=== PATIENT | male | born 1935 | race Caucasian/White ===

== ENCOUNTER 2016-04-16 15:24 | Observation (INO) | payer OTHER ==
[2016-04-16] MEDS ORDERED: ASPIRIN 81 MG CHEWABLE TABLETS PO ONE (15:33)
[2016-04-16 15:34] VITALS: BMI 29.2
[2016-04-16] MEDS ORDERED: ASPIRIN 81 MG CHEWABLE TABLETS ONE (15:57)
[2016-04-16 16:07] LABS: BASOPHIL 0.6 % (0-2.0); EOSINOPHIL 0.5 % (0-4.5); MCHC 33.8 g/dl (32.0-35.9); MEAN CELL VOLUME 100.5 fl (80-96); NEUTROPHILS 77.2 % (42.8-82.8); PLATELET COUNT 112 K/MM3 (134-434); WHITE BLOOD COUNT 7.1 K/mm3 (4.0-10.0)
[2016-04-16 16:38] LABS: ALBUMIN 3.8 g/dl (3.4-5.0); ANION GAP 9 (8-16); BILIRUBIN,TOTAL 0.7 mg/dL (0.2-1.0); CALCIUM 8.6 mg/dL (8.5-10.1); CO2 27 mmol/L (21-32); CREATININE 1.2 mg/dL (0.7-1.3); GLUCOSE,RANDOM 151 mg/dL (74-106); MAGNESIUM 2.3 mg/dL (1.8-2.4); SGOT/AST 17 U/L (15-37); SGPT/ALT 28 U/L (12-78); TOT PROT 6.2 g/dl (6.4-8.2)
[2016-04-16 16:40] LABS: ALK PHOS 61 U/L (45-117); TROPONIN I < 0.02 ng/ml (0.00-0.05)
[2016-04-16 16:45] LABS: INR 1.36 (0.82-1.09)
--- NOTE | 2016-04-16 17:25 | PDOC ---
History of Present Illness <Alize Chaney - Last Filed: 04/16/16 17:37> - General History Source: Patient Exam Limitations: No Limitations - History of Present Illness Presenting Symptoms: Chest Pain Timing/Duration: reports: constant Severity/Quality: reports: moderate, pressure Location: reports: other (left sided chest pain) Activities at Onset: reports: none Prior Chest Pain/Cardiac Workup: reports: Cardiac Cath, Stress Test, Other ( cardiac stent) Nitro Today/Relief: Yes: no nitro taken today Aspirin Received prior to arrival (Core Measure): Yes: 81 mg x 1, provided at home <SilasAngelica Randolph - Last Filed: 04/17/16 02:10> - General Chief Complaint: Chest Pain Stated Complaint: CHEST PAIN (PCP SENT) Time Seen by Provider: 04/16/16 15:33 - History of Present Illness Initial Comments: 04/16/16 17:37 The patient is a 81 year old male, with a significant past medical history of chronic lymphocytic leukemia s/p chemotherapy, hypertension, diabetes, stent placement in 2007 (81 mg aspirin daily), and pneumonia x4, who presents to the emergency department sent by Dr. Carias for admission with echocardiogram for 3 days of persistent left sided chest pain. The patient reports the pain is sharp, constant, and non-pleuritic. He states the pain radiates from his left lateral chest wall to his mid sternal region. He also reports the chest pain radiates to his left subscapular region. He denies shortness of breath, headache and dizziness. He denies fever, chills, nausea, vomit, diarrhea and constipation. He denies dysuria, frequency, urgency and hematuria. Allergies: NKDA Past surgical history: tonsillectomy and lymph node biopsy Social history: former tobacco use (+50 years) PCP - Dr. Carias Forming Fixer - Dr. Nam Rac Specialist - Dr. 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, CLL) Cardiac Disorders: Yes (ANGIOGRAM AND STENTS-09/18) CVA: No COPD: No CHF: No Dementia: No Diabetes: Yes (IDDM-20+YRS) GI Disorders: Yes (DIVERTICULOSIS-20+YRS) Disorders: Yes (enlarged prostate) HTN: Yes Hypercholesterolemia: Yes Liver Disease: No Psychiatric Problems: No Suicide Attempt (Hx): No Seizures: No Thyroid Disease: No - Surgical History Abdominal Surgery: No Appendectomy: No Cardiac Surgery: Yes (STENT AND ANGIOGRAM-09/18) Cholecystectomy: No Lung Surgery: No Neurologic Surgery: No Orthopedic Surgery: No - Immunization History Td Vaccination: No TDAP Vaccination: No - Psycho/Social/Smoking Cessation Hx Anxiety: No Suicidal Ideation: No Smoking Status: Yes Smoking History: Former smoker Have you smoked in the past 12 months: No Number of Cigarettes Smoked Daily: 0 If you are a former smoker, when did you quit?: 30 YEARS + Information on smoking cessation initiated: No 'Breaking Loose' booklet given: 07/10/11 Hx Alcohol Use: No Drug/Substance Use Hx: No Substance Use Type: None Hx Substance Use Treatment: No <Angelica Rosen - Last Filed: 04/17/16 02:10> - Past Medical History Allergies/Adverse Reactions: Allergies Allergy/AdvReac Type Severity Reaction Status Date / Time No Known Drug Allergies Allergy Verified 04/16/16 15:30 Home Medications: Ambulatory Orders [place]-3 Fatty Acids/Fish Oil [Cvs Fish Oil 1,200 mg Softgel] 1 each PO DAILY 08/02 Simvastatin [Zocor] 20 mg PO HS 07/10/11 Allopurinol [Zyloprim -] 100 mg PO DAILY #0 tablet 04/19/12 Aspirin [ASA -] 81 mg PO HS #0 tab.chew 04/19/12 Cholecalciferol (Vitamin D3) [Vitamin D3 -] 2,000 unit PO DAILY #0 tab 04/19/12 Folic Acid - 1 mg PO HS #0 tablet 04/19/12 Multivitamins [Multivit ([facility] Formulary)] 3 udtab PO DAILY 08/17/14 Ferrous Gluconate [Iron] 520 mg PO DAILY 11/29/14 Glimepiride 4 mg PO BID 11/29/14 Insulin Glargine,Hum.rec.anlog [Toujeo Solostar] 25 unit SQ DAILY 11/29/14 Insulin Sliding Scale [Novolog Vial Sliding Scale -] 0 units SQ ASDIR 11/29/14 Potassium Chloride 10 meq PO PRN 11/29/14 Acetaminophen [Tylenol .Regular Strength -] 650 mg PO Q6H PRN #0 tablet Ibrutinib [Imbruvica] 280 mg PO BID 03/24/15 Furosemide [Lasix -] 40 mg PO DAILY 11/15/15 Lisinopril [Prinivil] 10 mg PO DAILY 11/15/15 Cardiac Specific PMH - Complaint Specific PMHX Pacemaker: No <Angelica Rosen - Last Filed: 04/17/16 02:10> Review of Systems - Review of Systems Able to Perform ROS?: Yes <Alize Chaney - Last Filed: 04/16/16 17:37> <Angelica Rosen - Last Filed: 04/17/16 02:10> - Review of Systems Comments:: 04/16/16 17:38 CONSTITUTIONAL: Absent: fever, chills, diaphoresis, generalized weakness, malaise, loss of appetite HEENT: Absent: rhinorrhea, nasal congestion, throat pain, throat swelling, difficulty swallowing, mouth swelling, ear pain, eye pain, visual Changes CARDIOVASCULAR: (+) Left sided chest pain, Absent: syncope, palpitations, irregular heart rate, lightheadedness, peripheral edema RESPIRATORY: Absent: cough, shortness of breath, dyspnea with exertion, orthopnea, wheezing, stridor, hemoptysis GASTROINTESTINAL: Absent: abdominal pain, abdominal distension, nausea, vomiting, diarrhea, constipation, melena, hematochezia GENITOURINARY: Absent: dysuria, frequency, urgency, hesitancy, hematuria, flank pain, genital pain MUSCULOSKELETAL: Absent: myalgia, arthralgia, joint swelling SKIN: Absent: rash, itching, pallor HEMATOLOGIC/IMMUNOLOGIC: Absent: easy bleeding, easy bruising, lymphadenopathy, frequent infections ENDOCRINE: Absent: unexplained weight gain, unexplained weight loss, heat intolerance, cold intolerance NEUROLOGIC: Absent: headache, focal weakness or paresthesias, dizziness, unsteady gait, seizure, mental status changes, bladder or bowel incontinence PSYCHIATRIC: Absent: anxiety, depression, suicidal or homicidal ideation, hallucinations. (Alize Chaney) *Physical Exam <Alize Chaney - Last Filed: 04/16/16 17:37> <Angelica Rosen - Last Filed: 04/17/16 02:10> - Vital Signs Last Vital Signs Temp Pulse Resp BP Pulse Ox 98.4 F 70 20 150/73 97 04/16/16 20:06 04/16/16 20:06 04/16/16 20:06 04/16/16 20:06 04/16/16 20:06 - Physical Exam Comments: 04/16/16 17:39 GENERAL: Well developed, well nourished. Awake and alert. No acute distress. HEENT: Normocephalic, atraumatic. PERRLA, EOMI. No conjunctival pallor. Sclera are non- icteric. Moist mucous membranes. Oropharynx is clear. NECK: Supple. Full ROM. No JVD. Carotid pulses 2+ and symmetric, without bruits. No thyromegaly. No lymphadenopathy. CARDIOVASCULAR: Regular rate and rhythm. No murmurs, rubs, or gallops. Distal pulses are 2+ and symmetric. PULMONARY: No evidence of respiratory distress. Lungs clear to auscultation bilaterally. No wheezing, rales or rhonchi. ABDOMINAL: Soft. Non-tender. Non-distended. No rebound or guarding. No organomegaly. Normoactive bowel sounds. MUSCULOSKELETAL Normal range of motion at all joints. No bony deformities or tenderness. No CVA tenderness. EXTREMITIES: No cyanosis. No clubbing. No edema. No calf tenderness. SKIN: Warm and dry. Normal capillary refill. No rashes. No jaundice. NEUROLOGICAL: Alert, awake, appropriate. Cranial nerves 2-12 intact. Normoreflexic in the upper and lower extremities. Normal speech. Toes are down-going bilaterally. Gait is normal without ataxia. PSYCHIATRIC: Cooperative. Good eye contact. Appropriate mood and affect. (Alize Chaney) Heart Score/ECG Review - Electrocardiogram EKG: Normal - Age Age: >/= 65 - Risk Factors Risk Factors Heart Score: Yes Hx Hypercholesterolemia, Yes Hx Hypertension, Yes Hx Diabetes Based on the list above the patient has:: 1-2 risk factors - Troponin Troponin: </= normal limit - ECG Intrepretation Rhythm: Regular Rhythm - P and GA Prolonged GA Interval: 1st Degree Block(>20mils) Delta Wave(s) Present: No WPW: No - ST and T Non Specific ST-T Wave changes: Yes - ECG Impressions Ischemic Changes: No Torsades jemma Pointes: No WPW: No <Angelica Rosen - Last Filed: 04/17/16 02:10> ED Treatment Course - LABORATORY CBC & Chemistry Diagram: 04/16/16 16:00 04/16/16 16:00 <Alzie Chaney - Last Filed: 04/16/16 17:37> - LABORATORY CBC & Chemistry Diagram: 04/16/16 16:00 04/16/16 16:00 <Angelica Rosen - Last Filed: 04/17/16 02:10> - ADDITIONAL ORDERS Additional order review: Laboratory Results 04/16/16 04/16/16 16:00 16:00 INR 1.36 H Sodium 145 Potassium 4.4 Chloride 109 H Carbon Dioxide 27 Anion Gap 9 BUN 25 H D Creatinine 1.2 Creat Clearance w eGFR 58.11 Random Glucose 151 H D Calcium 8.6 Magnesium 2.3 Total Bilirubin 0.7 D AST 17 ALT 28 Alkaline Phosphatase 61 Creatine Kinase 102 Troponin I < 0.02 Total Protein 6.2 L Albumin 3.8 04/16/16 16:00 RBC 3.81 L MCV 100.5 H MCHC 33.8 RDW 14.0 MPV 10.0 Neutrophils % 77.2 D Lymphocytes % 17.2 D Monocytes % 4.5 Eosinophils % 0.5 D Basophils % 0.6 - Medications Given in the ED: ED Medications Discontinued Medications Generic Name Dose Route Start Last Admin Trade Name Freq PRN Reason Stop Dose Admin Aspirin 162 mg 04/16/16 15:33 04/16/16 16:11 Asa - PO 04/16/16 15:34 162 mg ONCE ONE Administration Medical Decision Making <Alize Chaney - Last Filed: 04/16/16 17:37> <Angelica Rosen - Last Filed: 04/17/16 02:10> - Medical Decision Making 04/16/16 17:39 Dr. Marroquin was paged at 17:32 requesting a callback for doctor to doctor consult regarding admission of Dr. Gates's patient. (Alize Chaney) 04/17/16 02:07 81 yo male p/w 3 days chest pain -he was referred to ER by his sanitation engineer Dr Ramirez --first set cardiac neg cxr napd labs revoewed xtc=331 -pt takes aspirin daily -admitted to tele obs -the sanitation engineer will do ECHO in am (Angelica Rosen) *DC/Admit/Observation/Transfer <Alize Chaney - Last Filed: 04/16/16 17:37> - Discharge Dispostion Admit: Yes <Angelica Rosen - Last Filed: 04/17/16 02:10> Diagnosis at time of Disposition: CAD (coronary artery disease) Qualifiers: Coronary Disease-Associated Artery/Lesion type: unspecified vessel or lesion type [place] vs. transplanted heart: [place] heart Associated angina: with unspecified angina Qualified Code(s): I25.119 - Atherosclerotic heart disease of [place] coronary artery with unspecified angina pectoris Chest pain Qualifiers: Chest pain type: precordial chest pain Qualified Code(s): R07.2 - Precordial pain Diabetes mellitus, insulin dependent (IDDM), uncontrolled Qualifiers: Diabetes mellitus complication status: with hyperglycemia Qualified Code(s): E10.65 - Type 1 diabetes mellitus with hyperglycemia - Referrals - Attestations Scribe Attestion: 04/16/16 17:39 Documentation prepared by Alize Chaney, acting as medical professionals for Angelica Rosen MD (Alize Chaney)
[2016-04-16] MEDS ORDERED: ACETAMINOPHEN 325 MG TABLET (FP) PO PRN (20:08)
[2016-04-16] MEDS ORDERED: ATORVASTATIN CA 10 MG TABLET (FP) PO SCH (22:00)
[2016-04-16] MEDS ORDERED: FOLIC ACID 1 MG TABLET (FP) PO SCH (22:00)
[2016-04-16] MEDS ORDERED: INSULIN DETEMIR 100 UNITS/ML MDV SQ SCH (22:00)
[2016-04-16] MEDS ORDERED: ASPIRIN 81 MG CHEWABLE TABLETS PO SCH (22:00)
[2016-04-16 22:17] LABS: TROPONIN I < 0.02 ng/ml (0.00-0.05)
[2016-04-16] MEDS: INSULIN DETEMIR 100 UNITS/ML MDV SQ SCH (22:35)
[2016-04-16] MEDS: HEPARIN NA (PORCINE) 5,000 UNITS/ML 1ML VIAL SQ SCH (22:35)
[2016-04-16] MEDS: INSULIN SLIDING SCALE (NOVOLOG) 1 VIAL SQ SCH (22:36)
[2016-04-16] MEDS: valACYclovir HCL 500 MG TABLET (FP) PO SCH (23:58)
[2016-04-17] MEDS: valACYclovir HCL 500 MG TABLET (FP) PO SCH (06:17)
[2016-04-17] MEDS: GLIMEPIRIDE 4 MG TABLET (FP) PO SCH ×3 (06:25→17:54)
[2016-04-17] MEDS: INSULIN SLIDING SCALE (NOVOLOG) 1 VIAL SQ SCH ×3 (06:25→17:55)
[2016-04-17 07:38] LABS: BASOPHIL 0.7 % (0-2.0); EOSINOPHIL 3.6 % (0-4.5); MCHC 34.1 g/dl (32.0-35.9); MEAN CELL VOLUME 99.8 fl (80-96); NEUTROPHILS 60.9 % (42.8-82.8); PLATELET COUNT 89 K/MM3 (134-434); RDW 13.8 % (11.9-15.9); WHITE BLOOD COUNT 5.4 K/mm3 (4.0-10.0)
[2016-04-17 08:21] LABS: ALBUMIN 3.3 g/dl (3.4-5.0); ALK PHOS 51 U/L (45-117); ANION GAP 6 (8-16); BILIRUBIN,TOTAL 0.6 mg/dL (0.2-1.0); CALCIUM 8.4 mg/dL (8.5-10.1); CHOLESTEROL 121 mg/dL (50-200); CO2 30 mmol/L (21-32); CREATININE 1.1 mg/dL (0.7-1.3); GLUCOSE,RANDOM 66 mg/dL (74-106); LDL CHOLESTEROL (ONLY SJRH) 68 mg/dL (5-100); MAGNESIUM 2.3 mg/dL (1.8-2.4); SGOT/AST 13 U/L (15-37); SGPT/ALT 22 U/L (12-78); TOT PROT 5.4 g/dl (6.4-8.2); TROPONIN I < 0.02 ng/ml (0.00-0.05)
[2016-04-17] MEDS ORDERED: ALLOPURINOL 100 MG TABLET (FP) PO SCH (10:00)
[2016-04-17] MEDS ORDERED: MULTIVITAMINS (DAILY MVI) TABLET (FP) PO SCH (10:00)
[2016-04-17] MEDS ORDERED: CHOLECALCIFEROL (VITAMIN D3) 1,000 UNIT TABLET (FP) PO SCH (10:00)
[2016-04-17] MEDS ORDERED: FUROSEMIDE 40 MG TABLET (FP) PO SCH (10:00)
[2016-04-17] MEDS ORDERED: LISINOPRIL 10 MG TABLET (FP) PO SCH (10:00)
[2016-04-17] MEDS ORDERED: ASPIRIN COATED 81 MG TABLET.EC PO SCH (10:00)
--- NOTE | 2016-04-17 10:03 | PN ---
Progress Note (short form) - Note Progress Note: Cardiology Consult Dictated IMP: Shingles CLL ASHD 1st degree AV block REC: Rx of Zoster Tele for 24 hours- marked 1st degree AV block. Echo
[2016-04-17] MEDS: HEPARIN NA (PORCINE) 5,000 UNITS/ML 1ML VIAL SQ SCH (10:21)
[2016-04-17] MEDS: INSULIN DETEMIR 100 UNITS/ML MDV SQ SCH (10:21)
--- NOTE | 2016-04-17 10:48 | HP ---
Admitting History and Physical - Primary Care Physician PCP: Ed Gates - Admission Chief Complaint: left sided chest pain History of Present Illness: The patient is a 81 year old male, with a significant past medical history of chronic lymphocytic leukemia s/p chemotherapy, hypertension, diabetes, stent placement in 2007 (81 mg aspirin daily), and pneumonia x4, who presents to the emergency department sent by Dr. Carias for admission with echocardiogram for 3 days of persistent left sided chest pain. The patient reports the pain is sharp, constant, and non-pleuritic. He states the pain radiates from his left lateral chest wall to his mid sternal region. He also reports the chest pain radiates to his left subscapular region. He denies shortness of breath, headache and dizziness. He denies fever, chills, nausea, vomit, diarrhea and constipation. He denies dysuria, frequency, urgency and hematuria. Allergies: NKDA Past surgical history: tonsillectomy and lymph node biopsy Social history: former tobacco use (+50 years) PCP - Dr. Carias Interventional Nurse - Dr. Nam Grey Percher - Dr. 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 CE 3 sets negative patient started on valtrex History Source: Patient, Medical Record - Past Medical History Cardiovascular: Yes: CAD (s/p stenting), HTN, Hyperlipdemia Gastrointestinal: Yes: GERD Renal/: Yes: Renal Inusuff, BPH Heme/Onc: Yes: Other (cll) Endocrine: Yes: Diabetes Mellitus - Past Surgical History Past Surgical History: Yes: Stent - Smoking History Smoking history: Former smoker Have you smoked in the past 12 months: No Aproximately how many cigarettes per day: 0 If you are a former smoker, when did you quit?: 30 YEARS + - Alcohol/Substance Use Hx Alcohol Use: No - Social History Occupation: retired History of Recent Travel: No Home Medications - Allergies Allergies/Adverse Reactions: Allergies Allergy/AdvReac Type Severity Reaction Status Date / Time No Known Drug Allergies Allergy Verified 04/16/16 15:30 - Home Medications Home Medications: Ambulatory Orders [place]-3 Fatty Acids/Fish Oil [Cvs Fish Oil 1,200 mg Softgel] 1 each PO DAILY 08/02 Simvastatin [Zocor] 20 mg PO HS 07/10/11 Allopurinol [Zyloprim -] 100 mg PO DAILY #0 tablet 04/19/12 Aspirin [ASA -] 81 mg PO HS #0 tab.chew 04/19/12 Cholecalciferol (Vitamin D3) [Vitamin D3 -] 2,000 unit PO DAILY #0 tab 04/19/12 Folic Acid - 1 mg PO HS #0 tablet 04/19/12 Multivitamins [Multivit ([facility] Formul[facility])] 3 udtab PO DAILY 08/17/14 Ferrous Gluconate [Iron] 520 mg PO DAILY 11/29/14 Glimepiride 4 mg PO BID 11/29/14 Insulin Glargine,Hum.rec.anlog [Toujeo Solostar] 25 unit SQ DAILY 11/29/14 Insulin Sliding Scale [Novolog Vial Sliding Scale -] 0 units SQ ASDIR 11/29/14 Potassium Chloride 10 meq PO PRN 11/29/14 Acetaminophen [Tylenol .Regular Strength -] 650 mg PO Q6H PRN #0 tablet Ibrutinib [Imbruvica] 280 mg PO BID 03/24/15 Furosemide [Lasix -] 40 mg PO DAILY 11/15/15 Lisinopril [Prinivil] 5 mg PO DAILY 11/15/15 Review of Systems - Review of Systems Cardiovascular: reports: Chest Pain (left side of chest non pleuritic) Physical Examination Vital Signs: Vital Signs Temperature 97.7 F 04/17/16 04:15 Pulse Rate 64 04/17/16 04:15 Respiratory Rate 20 04/17/16 04:15 Blood Pressure 123/69 04/17/16 04:15 O2 Sat by Pulse Oximetry (%) 100 04/16/16 21:00 Constitutional: Yes: Calm Neck: Yes: Trachea Midline Cardiovascular: Yes: Regular Rate and Rhythm, S1, S2 Respiratory: Yes: CTA Bilaterally Gastrointestinal: Yes: Normal Bowel Sounds, Soft Edema: Yes Integumentary: Yes: Other (red vesicles in cluster under the left breast and on back as well) Labs: CBC, BMP 04/17/16 05:35 04/17/16 05:35 Imaging - Results Chest X-ray: Report Reviewed (clear lungs) Problem List - Problems (1) Zoster Assessment/Plan: airborne precautions ID conslt on valrex Code(s): B02.9 - ZOSTER WITHOUT COMPLICATIONS (2) Chest pain Assessment/Plan: to get echo today CE 3 sets negative cardio on board asa, statin Code(s): R07.9 - CHEST PAIN, UNSPECIFIED Qualifiers: Chest pain type: precordial chest pain Qualified Code(s): R07.2 - Precordial pain (3) CLL (chronic lymphocytic leukemia) Assessment/Plan: to get he chemo medicaion from home oncology eval Code(s): C91.10 - CHRONIC LYMPHOCYTIC LEUK OF B-CELL TYPE NOT ACHIEVE REMIS (4) CAD (coronary artery disease) Assessment/Plan: asa.statin prinivil Code(s): I25.10 - ATHSCL HEART DISEASE OF [place] CORONARY ARTERY W/O ANG PCTRS Qualifiers: Coronary Disease-Associated Artery/Lesion type: unspecified vessel or lesion type [place] vs. transplanted heart: [place] heart Associated angina: with unspecified angina Qualified Code(s): I25.119 - Atherosclerotic heart disease of [place] coronary artery with unspecified angina pectoris (5) Hyperlipidemia associated with type 2 diabetes mellitus Assessment/Plan: lipd profile noted statin and fish oil Code(s): E11.69 - TYPE 2 DIABETES MELLITUS WITH OTHER SPECIFIED COMPLICATION E78.5 - HYPERLIPIDEMIA, UNSPECIFIED (6) Diabetes Assessment/Plan: hga1c is 6.5 bgm contine same regimen Code(s): E11.9 - TYPE 2 DIABETES MELLITUS WITHOUT COMPLICATIONS Qualifiers: Diabetes mellitus type: type 2
--- NOTE | 2016-04-17 11:01 | EKG ---
Test Reason : Blood Pressure : / mmHG Vent. Rate : 072 BPM Atrial Rate : 072 BPM P-R Int : 000 ms QRS Dur : 090 ms QT Int : 406 ms P-R-T Axes : 048 029 045 degrees QTc Int : 444 ms SINUS RHYTHM WITH 1ST DEGREE A-V BLOCK OTHERWISE NORMAL ECG WHEN COMPARED WITH ECG OF 14-NOV-2015 23:25, NO SIGNIFICANT CHANGE WAS FOUND Confirmed by MARY GONZALES, KENNETH ([id number]) on 04/17/2016 11:01:13 AM Referred By: ISAIAS Confirmed By:KENNETH HERNANDEZ MD
--- NOTE | 2016-04-17 11:04 | EKG ---
Test Reason : Blood Pressure : / mmHG Vent. Rate : 071 BPM Atrial Rate : 071 BPM P-R Int : 352 ms QRS Dur : 094 ms QT Int : 408 ms P-R-T Axes : 060 051 057 degrees QTc Int : 443 ms SINUS RHYTHM WITH 1ST DEGREE A-V BLOCK OTHERWISE NORMAL ECG WHEN COMPARED WITH ECG OF 16-APR-2016 15:28, NO SIGNIFICANT CHANGE WAS FOUND Confirmed by MARY GONZALES, KENNETH ([id number]) on 04/17/2016 11:03:32 AM Referred By: Sindy JOHNSON Confirmed By:KENNETH HERNANDEZ MD
--- NOTE | 2016-04-17 12:18 | CONS ---
DATE OF CONSULTATION: 04/17/2016 REQUESTING PHYSICIAN: Dr. Nam REASON FOR CONSULTATION: For chest pain. 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 Nam for 3 days of severe left-sided chest discomfort. The patient describes sharp pain on the left side of the rib cage radiating towards the left shoulder for 3 days. Upon presentation to the ER, he was noted to have a vesicular rash in a dermatomal distribution and was diagnosed with shingles. He denies substernal pressure with exertion, denies shortness of breath, palpitations, PND, orthopnea, or syncope. He denies fever, chills, or recent other upper respiratory infections. PAST MEDICAL HISTORY: Is as above and includes coronary disease, diabetes, anemia, CLL, hyperlipidemia, history of pneumonia. ALLERGIES: None HOME MEDICATIONS: Include Prinivil 5 mg daily, Imbruvica 280 mg b.i.d., Zocor 20 mg at bedtime, folic acid 1 mg at bedtime, aspirin 81 mg at bedtime, Tylenol 650 mg q.6 p.r.n., omega-3 fatty acids, multivitamin, NovoLog, Lasix 40 mg daily, glimepiride 4 mg b.i.d., iron supplementation, and allopurinol 100 mg daily. FAMILY HISTORY: Noncontributory. SOCIAL HISTORY: A former smoker, he is . PHYSICAL EXAMINATION: Vital signs: Afebrile, temperature 97.7, pulse 64, blood pressure 123/69, O2 saturation 100 on room air. HEENT: Anicteric. Neck: No bruits. Heart: S1, S2, regular, no murmurs. Chest: Clear. Abdomen: Soft, nontender. There is a red vesicular rash on the left side of his rib cage in a clear dermatomal distribution. Extremities: No edema. DIAGNOSTIC DATA: EKG showed normal sinus with 1st degree AV block. Chest x-ray was unremarkable. LABORATORIES: White count 5.4, hematocrit 35, platelets 89. INR 1.36. Sodium 146, potassium 3.8, creatinine 1.1, AST 13, ALT 22. CK and troponin are negative x3 sets. IMPRESSION: 1. Chronic lymphocytic leukemia. 2. Herpes zoster. 3. History of coronary artery disease. 4. 1st degree AV block. PLAN: 1. Treatment of zoster. 2. 24 hours of telemetry. Patient has a marked 1st degree AV block . Will observe for any evidence of higher grade block. 3. Echocardiogram. 4. Will follow. Thank you for the consultation. SHALINI DE LOS SANTOS M.D. [id number]
--- NOTE | 2016-04-17 12:30 | PN ---
Progress Note (short form) - Note Progress Note: ID Consult dictated Herpes zoster L T6 dermatome L chest pain secondary to herpes zoster CLL Valtrex 1gm po tid x7d No objection to outpatient treatment
[2016-04-17] MEDS ORDERED: valACYclovir HCL 500 MG TABLET (FP) PO SCH (14:00)
--- NOTE | 2016-04-17 14:34 | DS ---
Physical Examination Vital Signs: Vital Signs Temperature 97.9 F 04/17/16 10:47 Pulse Rate 74 04/17/16 10:47 Respiratory Rate 18 04/17/16 10:47 Blood Pressure 149/73 04/17/16 10:47 O2 Sat by Pulse Oximetry (%) 97 04/17/16 10:47 Constitutional: Yes: Calm Cardiovascular: Yes: Regular Rate and Rhythm Respiratory: Yes: CTA Bilaterally Gastrointestinal: Yes: Normal Bowel Sounds, Soft Extremities: Yes: Other Integumentary: Yes: Other (vesucklar rash under left breast ad left upper back) Discharge Summary Reason For Visit: CHEST PAIN Current Active Problems CAD (coronary artery disease) (Acute) Chest pain (Acute) Diabetes (Acute) Diabetes mellitus, insulin dependent (IDDM), uncontrolled (Acute) Fever (Acute) 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 Carias for admission with echocardiogram for 3 days of persistent left sided chest pain. The patient reports the pain is sharp, constant, and non-pleuritic. He states the pain radiates from his left lateral chest wall to his mid sternal region. He also reports the chest pain radiates to his left subscapular region. He denies shortness of breath, headache and dizziness. He denies fever, chills, nausea, vomit, diarrhea and constipation. He denies dysuria, frequency, urgency and hematuria. Allergies: NKDA Past surgical history: tonsillectomy and lymph node biopsy Social history: former tobacco use (+50 years) PCP - Dr. Carias Ticket Puller - Dr. Nam [employer] Workers - Dr. 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 CE 3 sets negative patient started on valtrex noticed to have rash on left side chest under breast left t6 dermatome to get echo today if all normal then dc home plan 1000mg po tid for 7 days - Instructions Diet, Activity, Other Instructions: valtrex 1000mg po tid for 7 days lisinopril 10mg po daily Referrals: Ed Gates MD [Primary Care Provider] - - Home Medications Comprehensive Discharge Medication List: Ambulatory Orders [place]-3 Fatty Acids/Fish Oil [Cvs Fish Oil 1,200 mg Softgel] 1 each PO DAILY 08/02 Simvastatin [Zocor] 20 mg PO HS 07/10/11 Allopurinol [Zyloprim -] 100 mg PO DAILY #0 tablet 04/19/12 Aspirin [ASA -] 81 mg PO HS #0 tab.chew 04/19/12 Cholecalciferol (Vitamin D3) [Vitamin D3 -] 2,000 unit PO DAILY #0 tab 04/19/12 Folic Acid - 1 mg PO HS #0 tablet 04/19/12 Multivitamins [Multivit ([facility] Formulary)] 3 udtab PO DAILY 08/17/14 Ferrous Gluconate [Iron] 520 mg PO DAILY 11/29/14 Glimepiride 4 mg PO BID 11/29/14 Insulin Glargine,Hum.rec.anlog [[place] Solostar] 25 unit SQ DAILY 11/29/14 Acetaminophen [Tylenol .Regular Strength -] 650 mg PO Q6H PRN #0 tablet Ibrutinib [Imbruvica] 280 mg PO BID 03/24/15 Furosemide [Lasix -] 40 mg PO DAILY 11/15/15 Insulin (Levemir) [Levemir Vial] 25 units SQ AM ml 04/17/16 Lisinopril [Prinivil] 10 mg PO DAILY #30 tablet 04/17/16 Valacyclovir HCl [Valtrex -] 1,000 mg PO TID #20 tablet 04/17/16
[2016-04-17 15:08] VITALS: BP 144/77; PULSE 70; TEMP 97.6
--- NOTE | 2016-04-17 17:45 | CONS ---
DATE OF CONSULTATION: DATE OF DICTATION: 04/17/2016 INFECTIOUS DISEASE CONSULTATION HISTORY OF PRESENT ILLNESS: An 81-year-old male evaluated for herpes zoster of the left chest. Patient reports approximately 2-3 days prior to admission he developed left sided chest pain. He reported the pain radiated from his left posterior thorax to his anterior chest. He was seen as an outpatient, was referred to the hospital for further evaluation. He was subsequently noted to have developed a vesicular rash involving the T6 dermatome. He is now on Valtrex for herpes zoster. Patient has a history of CLL and has been on Imbruvica. He denies any associated fever or chills. No complaints of shortness of breath or cough. PAST MEDICAL HISTORY: Positive for CLL, coronary artery disease, hypertension, hyperlipidemia, diabetes mellitus, pneumonia, gastroesophageal reflux. PAST SURGICAL HISTORY: Status post lymph node biopsy and tonsillectomy. ALLERGIES: No known allergies. MEDICATION: Include Zocor, Zyloprim, aspirin, glimepiride. SOCIAL HISTORY: Former smoker, lives at home with his . LABORATORY DATA: White count 5.4, hematocrit 35.0, platelet count 89. BUN 23, creatinine 1.1. SYSTEMIC REVIEW: Neurologic: No loss of consciousness, seizure activity, or focal weakness. Cardiac: As her HPI. Respiratory: Negative cough or sputum production. Gastrointestinal: Negative vomiting or diarrhea. Genitourinary: Negative for urinary tract infection. PHYSICAL EXAMINATION: General: He is awake and alert. He is not acutely toxic appearing. Vital signs: Temperature 97.9, blood pressure 149/73, pulse 74 regular, respirations 20 per minute. HEENT: Sclerae anicteric. Neck: Supple. Cardiovascular: Heart sounds S1, S2. Respiratory: Lungs clear. Abdomen: Soft. Nontender. Extremities: 1+ edema. Chest: Examination of the left chest, there is a vesicular rash present along the T6 dermatome extending from the right posterior thorax below the scapula to the right chest area below the breast. IMPRESSION: 1. Herpes zoster, left T6 dermatome. 2. 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 3. Chest pain syndrome secondary to herpes zoster. Advised treatment for herpes zoster with Valtrex 1 g p.o. t.i.d. Contact precautions. Thank you for the kind referral. SHALINI MUNGUIA M.D. [id number]
--- NOTE | 2016-04-17 17:52 | PN ---
Progress Note (short form) - Note Progress Note: Patient seen and examined. Atypical pain seen in office. No rash present at that time. Admitted with shingles within the mid thoracic dermatome. Last Vital Signs Temp Pulse Resp BP Pulse Ox 97.6 F 70 16 144/77 97 04/17/16 14:04 04/17/16 14:04 04/17/16 14:04 04/17/16 14:04 04/17/16 10:47 HEENT: MARCELINO, EOM Intact Neck: Supple Cor: RSR, No murmurs, No gallops Lungs: Clear to P&A Ext:No significant edema Skin: macular, vesicular rash across the mid dorsal dermatome CBC, BMP 04/17/16 05:35 04/17/16 05:35 Current Medications Generic Name Dose Route Start Last Admin Trade Name Freq PRN Reason Stop Dose Admin Acetaminophen 650 mg 04/16/16 20:08 04/16/16 23:58 Tylenol - PO 650 mg Q6H PRN Administration FEVER OR PAIN Allopurinol 100 mg 04/17/16 10:00 04/17/16 10:03 Zyloprim - PO 100 mg DAILY YANDEL Administration Aspirin 81 mg 04/17/16 22:00 Asa - PO HS YANDEL Atorvastatin Calcium 10 mg 04/16/16 22:00 04/16/16 22:36 Lipitor - PO 10 mg HS [facility] Administration Cholecalciferol 2,000 unit 04/17/16 10:00 04/17/16 10:03 Vitamin D3 - PO 2,000 unit DAILY YANDEL Administration Folic Acid 1 mg 04/16/16 22:00 04/16/16 22:35 Folic Acid - PO 1 mg HS [facility] Administration Glimepiride 4 mg 04/17/16 07:00 04/17/16 10:04 Amaryl - PO 4 mg BIDAC YANDEL Administration Insulin Aspart 1 vial 04/16/16 22:00 04/17/16 12:45 Novolog Vial Sliding Scale - SQ Not Given [facility] Protocol Insulin Detemir 25 units 04/18/16 07:00 Levemir Vial SQ AM YANDEL Lisinopril 5 mg 04/18/16 10:00 Prinivil PO DAILY [facility] Multivitamins/Minerals/Vitamin C 1 tab 04/17/16 10:00 04/17/16 10:02 Tab-A-Vit - PO 1 tab DAILY YANDEL Administration Valacyclovir HCl 1,000 mg 04/17/16 14:00 04/17/16 14:35 Valtrex - PO 1,000 mg TID YANDEL Administration Impression: Shingles CLL Hypogammaglobulinemia Plan: Valtrex per I.D. Until clearance of shingles-- hold Ibrutinib
[2016-04-17] MEDS ORDERED: ASPIRIN 81 MG CHEWABLE TABLETS PO SCH (22:00)
[2016-04-18] MEDS ORDERED: INSULIN DETEMIR 100 UNITS/ML MDV SQ SCH (07:00)
[2016-04-18] MEDS ORDERED: LISINOPRIL 5 MG TABLET (FP) PO SCH (10:00)
== END 2016-04-17 18:25 | disposition home or self-care (01) ==
LOC: JER 15:24 → JERBED 17:36 → UNDOADMOB 17:36 → INTOOBSV 17:36 → JERBED 20:53 → J4S 20:53 → JERBED 04-17 10:46 → J4S 04-17 10:46
PROVIDERS: ADMIT Family Medicine; ATTEND Family Medicine
DX: I25.10 Atherosclerotic heart disease of native coronary artery without angina pectoris (principal); Z98.61 Coronary angioplasty status; B02.9 Zoster without complications; R07.9 Chest pain, unspecified; I12.9 Hypertensive chronic kidney disease with stage 1 through stage 4 chronic kidney disease, or unspecified chronic kidney disease; E11.22 Type 2 diabetes mellitus with diabetic chronic kidney disease; Z87.891 Personal history of nicotine dependence; Z79.4 Long term (current) use of insulin; N18.2 Chronic kidney disease, stage 2 (mild); E11.65 Type 2 diabetes mellitus with hyperglycemia; C91.10 Chronic lymphocytic leukemia of B-cell type not having achieved remission; E78.5 Hyperlipidemia, unspecified; Z92.21 Personal history of antineoplastic chemotherapy; I44.0 Atrioventricular block, first degree
CPT/HCPCS: 36415; 71020-TC; 80053; 80061; 82550; 83036; 83721; 83735; 84484; 85025; 85610; 93005; 93010; 93306-TC; 99285-25; G0378

== ENCOUNTER 2016-10-23 08:24 | Day surgery (SDC) | payer OTHER ==
[2016-10-22 13:22] VITALS: BMI 29.2
[2016-10-23] MEDS ORDERED: ceFAZolin SODIUM 1 GM VIAL IVPB ONE ×2 (10:27→10:29)
[2016-10-23] MEDS ORDERED: MIDAZOLAM HCL 2 MG/2 ML SINGLE DOSE VIAL ONE ×2 (10:28)
[2016-10-23] MEDS ORDERED: ceFAZolin SODIUM 1 GM VIAL ONE (10:31)
--- NOTE | 2016-10-23 11:12 | OP ---
Operative Note - Note: Operative Date: 10/23/16 Pre-Operative Diagnosis: left renal calculus Operation: Left Lithotripsy Post-Operative Diagnosis: Same as Pre-op Surgeon: Andrei Thomas MD. Anesthesia: General, MAC Operative Report Dictated: Yes
[2016-10-23] MEDS ORDERED: ONDANSETRON 4 MG/2 ML VIAL IVPUSH PRN (12:09)
[2016-10-23] MEDS ORDERED: LACTATED RINGERS SOLUTION 1,000 ML IV SCH (12:15)
[2016-10-23 12:28] VITALS: TEMP 97.7
[2016-10-23 14:03] VITALS: BP 131/60; PULSE 70
--- NOTE | 2016-10-23 15:30 | OP ---
DATE OF OPERATION: 10/23/2016 PREOPERATIVE DIAGNOSIS: Left renal calculus. POSTOPERATIVE DIAGNOSIS: Left renal calculus. PROCEDURE: Left extracorporeal shock wave lithotripsy. HISTORY: This is a pleasant, 81-year-old gentleman with a long history of renal calculi, who presented initially with microhematuria recently. Preoperatively, he was found to have a 17-mm left lower pole calculus. The treatment options were discussed including observation. The patient elected to undergo the above-stated procedure. Risks and benefits of treatment and alternative treatment discussed in detail. All questions were answered. BRIEF OPERATIVE NOTE: Patient was brought in the operating room, placed in supine position. The stone was visualized using ultrasonography. Approximately 2500 shocks were delivered in electromagnetic fashion. Patient tolerated the procedure well, was brought to recovery room in stable and satisfactory condition. MEGAN AGUIRRE M.D. [id number]
== END 2016-10-23 14:03 | disposition home or self-care (01) ==
LOC: JASU-SURG 08:24
PROVIDERS: ATTEND Urology
PROC: 0TF4XZZ Fragmentation in Left Kidney Pelvis, External Approach (ICD-10-PCS; principal; 2016-10-23 10:00)
DX: N20.0 Calculus of kidney (principal)
CPT/HCPCS: 94760

== ENCOUNTER 2018-07-06 19:58 | Inpatient (IN) | payer OTHER | END 2018-07-10 11:36 | disposition home health service (06) | LOC: J6S 07-07 02:25 → JER 19:58 → JERBED 22:21 ==

== ENCOUNTER 2018-10-02 07:01 | Day surgery (SDC) | payer OTHER ==
[2018-10-02] MEDS ORDERED: DIPHENHYDRAMINE 50 MG in SODIUM CHLORIDE 50 ML IVPB ONE (09:30)
[2018-10-02] MEDS ORDERED: ACETAMINOPHEN 325 MG TABLET (FP) PO ONE (09:30)
[2018-10-02] MEDS ORDERED: IMMUNE GLOBULIN 30 GM/300 ML IVPB ONE (10:00)
[2018-10-02 10:32] LABS: BASO % 0.6 % (0-2.0); HEMATOCRIT 35.8 % (35.4-49); HEMOGLOBIN 11.7 GM/dL (11.7-16.9); LYMPH % 31.3 % (8-40); MCH 33.5 pg (25.7-33.7); MCHC 32.6 g/dl (32.0-35.9); MEAN CELL VOLUME 102.8 fl (80-96); MEAN PLT VOLUME 10.4 fl (7.5-11.1); MONO % 6.9 % (3.8-10.2); NEUT % 58.2 % (42.8-82.8); PLATELET COUNT 127 K/MM3 (134-434); RBC 3.48 M/mm3 (4.00-5.60); RDW 16.2 % (11.9-15.9); WHITE BLOOD COUNT 7.6 K/mm3 (4.0-10.0)
[2018-10-02 11:03] LABS: ALBUMIN 3.5 g/dl (3.4-5.0); BILIRUBIN,DIRECT 0.2 mg/dL (0.0-0.2); BILIRUBIN,TOTAL 0.4 mg/dL (0.2-1); CALCIUM 8.6 mg/dL (8.5-10.1); CREATININE 1.5 mg/dL (0.55-1.3); MAGNESIUM 2.7 mg/dL (1.8-2.4); POTASSIUM 4.3 mmol/L (3.5-5.1)
[2018-10-02] MEDS ORDERED: PRO IVPB ONE (11:45)
[2018-10-02] MEDS ORDERED: IMMUN GLOB IVPB ONE (11:45)
[2018-10-02] MEDS ORDERED: IGA IVPB ONE (11:45)
[2018-10-02 11:51] LABS: BLOOD UREA NITROGEN 43.4 mg/dL (7-18)
[2018-10-02] MEDS ORDERED: SODIUM CHLORIDE 250 ML IV ONE (13:00)
[2018-10-02 15:54] VITALS: TEMP 98
[2018-10-02 15:55] VITALS: BP 130/62; PULSE 57
== END 2018-10-02 15:30 | disposition home or self-care (01) ==
LOC: JONCCHEMO 07:01 → J7W 11:07 → JONCCHEMO 15:30
PROVIDERS: ATTEND Internal Medicine Hematology & Oncology
PROC: 3E033GC Introduction of Other Therapeutic Substance into Peripheral Vein, Percutaneous Approach (ICD-10-PCS; principal; 2018-10-02)
PROC: 3E033GC Introduction of Other Therapeutic Substance into Peripheral Vein, Percutaneous Approach (ICD-10-PCS; 2018-10-02)
DX: D80.1 Nonfamilial hypogammaglobulinemia (principal); C91.10 Chronic lymphocytic leukemia of B-cell type not having achieved remission; E11.9 Type 2 diabetes mellitus without complications; K57.30 Diverticulosis of large intestine without perforation or abscess without bleeding; I10 Essential (primary) hypertension
CPT/HCPCS: 36415; 80048; 80076; 83735; 85025; 96365; 96366; 96367; 96375; 96415; 96417; J1459

== ENCOUNTER 2018-10-30 05:27 | Day surgery (SDC) | payer OTHER ==
[2018-10-30] MEDS ORDERED: DIPHENHYDRAMINE 50 MG in SODIUM CHLORIDE 50 ML IVPB ONE (10:00)
[2018-10-30] MEDS ORDERED: ACETAMINOPHEN 325 MG TABLET (FP) PO PRN (10:00)
[2018-10-30] MEDS ORDERED: SODIUM CHLORIDE 250 ML IV ONE (10:00)
[2018-10-30] MEDS ORDERED: PRO IVPB ONE (10:30)
[2018-10-30] MEDS ORDERED: IMMUN GLOB IVPB ONE (10:30)
[2018-10-30] MEDS ORDERED: IGA IVPB ONE (10:30)
[2018-10-30 10:38] LABS: BASO % 0.6 % (0-2.0); EOS % 2.6 % (0-4.5); HEMATOCRIT 36.1 % (35.4-49); HEMOGLOBIN 11.8 GM/dL (11.7-16.9); LYMPH % 18.9 % (8-40); MCHC 32.6 g/dl (32.0-35.9); MEAN CELL VOLUME 104.4 fl (80-96); MEAN PLT VOLUME 9.6 fl (7.5-11.1); MONO % 7.7 % (3.8-10.2); NEUT % 70.2 % (42.8-82.8); PLATELET COUNT 137 K/MM3 (134-434); RBC 3.46 M/mm3 (4.00-5.60); RDW 17.3 % (11.9-15.9); WHITE BLOOD COUNT 8.9 K/mm3 (4.0-10.0)
[2018-10-30 11:07] LABS: ALBUMIN 3.7 g/dl (3.4-5.0); BILIRUBIN,TOTAL 0.4 mg/dL (0.2-1); CALCIUM 8.7 mg/dL (8.5-10.1); CREATININE 1.4 mg/dL (0.55-1.3); MAGNESIUM 2.6 mg/dL (1.8-2.4); POTASSIUM 4.6 mmol/L (3.5-5.1); TOT PROT 6.1 g/dl (6.4-8.2); URIC ACID 7.5 mg/dL (2.6-7.2)
[2018-10-30 15:48] VITALS: BP 143/58; PULSE 61; TEMP 97.9
[2018-11-01 08:07] LABS: IGA IMMUNOGLOBULIN 55 mg/dL (61-437); IGG QN IMMUNOGLOBULIN 704 mg/dL (700-1600); IGM QN SERUM 96 mg/dL (15-143)
== END 2018-10-30 14:35 | disposition home or self-care (01) ==
LOC: JONCCHEMO 05:27 → J7W 10:49 → JONCCHEMO 14:35
PROVIDERS: ATTEND Internal Medicine Hematology & Oncology
PROC: 3E033GC Introduction of Other Therapeutic Substance into Peripheral Vein, Percutaneous Approach (ICD-10-PCS; principal; 2018-10-30)
PROC: 3E033GC Introduction of Other Therapeutic Substance into Peripheral Vein, Percutaneous Approach (ICD-10-PCS; 2018-10-30)
DX: D80.1 Nonfamilial hypogammaglobulinemia (principal); C91.10 Chronic lymphocytic leukemia of B-cell type not having achieved remission; I10 Essential (primary) hypertension; K57.30 Diverticulosis of large intestine without perforation or abscess without bleeding
CPT/HCPCS: 36415; 80053; 82784; 83615; 83735; 84550; 85025; 96365; 96367; 96375; 96415; 96417; J1459

== ENCOUNTER 2018-11-27 07:20 | Day surgery (SDC) | payer OTHER ==
[2018-11-27] MEDS ORDERED: ACETAMINOPHEN 325 MG TABLET (FP) PO ONE (09:30)
[2018-11-27] MEDS ORDERED: DIPHENHYDRAMINE 50 MG in SODIUM CHLORIDE 50 ML IVPB ONE (09:30)
[2018-11-27] MEDS ORDERED: IGA IVPB ONE (10:00)
[2018-11-27] MEDS ORDERED: PRO IVPB ONE (10:00)
[2018-11-27] MEDS ORDERED: IMMUN GLOB IVPB ONE (10:00)
[2018-11-27 12:04] LABS: BASO % 0.7 % (0-2.0); EOS % 2.1 % (0-4.5); HEMATOCRIT 38.2 % (35.4-49); HEMOGLOBIN 12.3 GM/dL (11.7-16.9); LYMPH % 28.2 % (8-40); MCH 34.3 pg (25.7-33.7); MCHC 32.3 g/dl (32.0-35.9); MEAN CELL VOLUME 106.2 fl (80-96); MEAN PLT VOLUME 10.1 fl (7.5-11.1); MONO % 8.3 % (3.8-10.2); NEUT % 60.7 % (42.8-82.8); PLATELET COUNT 139 K/MM3 (134-434); RBC 3.59 M/mm3 (4.00-5.60); RDW 17.1 % (11.9-15.9); WHITE BLOOD COUNT 8.6 K/mm3 (4.0-10.0)
[2018-11-27 12:26] LABS: ALBUMIN 3.6 g/dl (3.4-5.0); BILIRUBIN,TOTAL 0.5 mg/dL (0.2-1); BLOOD UREA NITROGEN 42.8 mg/dL (7-18); CALCIUM 8.9 mg/dL (8.5-10.1); CREATININE 1.4 mg/dL (0.55-1.3); MAGNESIUM 2.4 mg/dL (1.8-2.4); POTASSIUM 4.3 mmol/L (3.5-5.1); TOT PROT 6.3 g/dl (6.4-8.2)
[2018-11-27] MEDS ORDERED: SODIUM CHLORIDE 250 ML IV ONE (13:00)
[2018-11-27] MEDS ORDERED: ACETAMINOPHEN 325 MG TABLET (FP) ONE (13:40)
[2018-11-27 17:16] VITALS: BP 148/51; PULSE 63; TEMP 97.4
== END 2018-11-27 16:35 | disposition home or self-care (01) ==
LOC: JONCCHEMO 07:20 → J7W 13:00 → JONCCHEMO 16:35
PROVIDERS: ATTEND Internal Medicine Hematology & Oncology
PROC: 3E033GC Introduction of Other Therapeutic Substance into Peripheral Vein, Percutaneous Approach (ICD-10-PCS; principal; 2018-11-27)
PROC: 3E033GC Introduction of Other Therapeutic Substance into Peripheral Vein, Percutaneous Approach (ICD-10-PCS; 2018-11-27)
DX: D80.1 Nonfamilial hypogammaglobulinemia (principal); C91.10 Chronic lymphocytic leukemia of B-cell type not having achieved remission
CPT/HCPCS: 36415; 80053; 83735; 85025; 96365; 96366; 96367; 96375; 96415; 96417; J1459

== ENCOUNTER 2018-12-25 07:26 | Day surgery (SDC) | payer OTHER ==
[2018-12-25] MEDS ORDERED: DIPHENHYDRAMINE 50 MG in SODIUM CHLORIDE 50 ML IVPB ONE (10:00)
[2018-12-25] MEDS ORDERED: ACETAMINOPHEN 325 MG TABLET (FP) PO ONE (10:00)
[2018-12-25] MEDS ORDERED: PRO IVPB ONE (10:30)
[2018-12-25] MEDS ORDERED: IMMUN GLOB IVPB ONE (10:30)
[2018-12-25] MEDS ORDERED: IGA IVPB ONE (10:30)
[2018-12-25 10:50] LABS: BASO % 0.7 % (0-2.0); EOS % 0.7 % (0-4.5); HEMATOCRIT 38.5 % (35.4-49); HEMOGLOBIN 12.6 GM/dL (11.7-16.9); LYMPH % 17.6 % (8-40); MCH 34.5 pg (25.7-33.7); MCHC 32.8 g/dl (32.0-35.9); MEAN CELL VOLUME 105.5 fl (80-96); MEAN PLT VOLUME 9.8 fl (7.5-11.1); MONO % 6.6 % (3.8-10.2); NEUT % 74.4 % (42.8-82.8); PLATELET COUNT 149 K/MM3 (134-434); RBC 3.66 M/mm3 (4.00-5.60); RDW 16.1 % (11.9-15.9); WHITE BLOOD COUNT 7.2 K/mm3 (4.0-10.0)
[2018-12-25 11:13] LABS: ALBUMIN 3.7 g/dl (3.4-5.0); BILIRUBIN,TOTAL 0.6 mg/dL (0.2-1); BLOOD UREA NITROGEN 54.1 mg/dL (7-18); CALCIUM 8.6 mg/dL (8.5-10.1); MAGNESIUM 2.3 mg/dL (1.8-2.4); POTASSIUM 3.6 mmol/L (3.5-5.1); TOT PROT 6.1 g/dl (6.4-8.2); URIC ACID 6.7 mg/dL (2.6-7.2)
[2018-12-25 12:29] LABS: ANISOCYTOSIS 1+; MACROCYTOSIS 1+; PLATELET ESTIMATE DECREASED
[2018-12-25] MEDS ORDERED: SODIUM CHLORIDE 250 ML IV ONE (14:00)
[2018-12-25 17:13] VITALS: BP 114/48; PULSE 72; TEMP 98.3
== END 2018-12-25 16:55 | disposition home or self-care (01) ==
LOC: JONCCHEMO 07:26 → J7W 12:32 → JONCCHEMO 16:55
PROVIDERS: ATTEND Internal Medicine Hematology & Oncology
PROC: 3E033GC Introduction of Other Therapeutic Substance into Peripheral Vein, Percutaneous Approach (ICD-10-PCS; principal; 2018-12-25)
PROC: 3E0337Z Introduction of Electrolytic and Water Balance Substance into Peripheral Vein, Percutaneous Approach (ICD-10-PCS; 2018-12-25)
DX: D80.1 Nonfamilial hypogammaglobulinemia (principal); C91.10 Chronic lymphocytic leukemia of B-cell type not having achieved remission; I10 Essential (primary) hypertension; I25.10 Atherosclerotic heart disease of native coronary artery without angina pectoris; E11.9 Type 2 diabetes mellitus without complications; E78.00 Pure hypercholesterolemia, unspecified; Z85.828 Personal history of other malignant neoplasm of skin
CPT/HCPCS: 36415; 80053; 82232; 82784; 83615; 83735; 84550; 85025; 87086; 96365; 96366; 96375; J1459

== ENCOUNTER 2019-01-29 07:28 | Day surgery (SDC) | payer OTHER ==
[2019-01-29] MEDS ORDERED: ACETAMINOPHEN 325 MG TABLET (FP) PO PRN (10:02)
[2019-01-29 10:58] LABS: EOS % 3.2 % (0-4.5); HEMATOCRIT 33.7 % (35.4-49); HEMOGLOBIN 11.2 GM/dL (11.7-16.9); LYMPH % 28.3 % (8-40); MCH 35.6 pg (25.7-33.7); MCHC 33.3 g/dl (32.0-35.9); MEAN CELL VOLUME 106.9 fl (80-96); MEAN PLT VOLUME 9.5 fl (7.5-11.1); NEUT % 59.5 % (42.8-82.8); PLATELET COUNT 125 K/MM3 (134-434); RBC 3.16 M/mm3 (4.00-5.60); RDW 14.7 % (11.9-15.9); WHITE BLOOD COUNT 6.4 K/mm3 (4.0-10.0)
[2019-01-29] MEDS ORDERED: DIPHENHYDRAMINE 50 MG in SODIUM CHLORIDE 50 ML IVPB ONE (11:00)
[2019-01-29] MEDS ORDERED: IGA IVPB ONE (11:30)
[2019-01-29] MEDS ORDERED: PRO IVPB ONE (11:30)
[2019-01-29] MEDS ORDERED: IMMUN GLOB IVPB ONE (11:30)
[2019-01-29 11:31] LABS: ALBUMIN 3.4 g/dl (3.4-5.0); BILIRUBIN,TOTAL 0.4 mg/dL (0.2-1); BLOOD UREA NITROGEN 57.8 mg/dL (7-18); CALCIUM 8.3 mg/dL (8.5-10.1); CREATININE 1.7 mg/dL (0.55-1.3); MAGNESIUM 2.4 mg/dL (1.8-2.4); URIC ACID 6.5 mg/dL (2.6-7.2)
[2019-01-29 11:43] LABS: ANISOCYTOSIS 1+; MACROCYTOSIS 1+; PLATELET ESTIMATE DECREASED
[2019-01-29 16:36] VITALS: BP 121/59; PULSE 73; TEMP 97.7
[2019-01-30 08:08] LABS: IGA IMMUNOGLOBULIN 46 mg/dL (61-437); IGG QN IMMUNOGLOBULIN 668 mg/dL (700-1600); IGM QN SERUM 74 mg/dL (15-143)
[2019-01-31 20:09] LABS: BETA-2-MICROGLOBULIN 4.1 mg/L (0.6-2.4)
== END 2019-01-29 16:51 | disposition home or self-care (01) ==
LOC: JONCCHEMO 07:28 → J7W 12:40 → JONCCHEMO 16:51
PROVIDERS: ATTEND Internal Medicine Hematology & Oncology
PROC: 3E033GC Introduction of Other Therapeutic Substance into Peripheral Vein, Percutaneous Approach (ICD-10-PCS; principal; 2019-01-29)
DX: C91.10 Chronic lymphocytic leukemia of B-cell type not having achieved remission (principal); E11.9 Type 2 diabetes mellitus without complications; I10 Essential (primary) hypertension; E78.00 Pure hypercholesterolemia, unspecified
CPT/HCPCS: 36415; 80053; 82232; 82784; 83540; 83550; 83615; 83735; 84550; 85025; 96365; 96366; J1459

== ENCOUNTER 2019-02-26 07:19 | Day surgery (SDC) | payer OTHER ==
[2019-02-26 08:36] LABS: BASO % 0.6 % (0-2.0); EOS % 3.4 % (0-4.5); HEMATOCRIT 35.5 % (35.4-49); HEMOGLOBIN 11.8 GM/dL (11.7-16.9); LYMPH % 27.1 % (8-40); MCH 35.2 pg (25.7-33.7); MCHC 33.3 g/dl (32.0-35.9); MEAN CELL VOLUME 105.7 fl (80-96); MEAN PLT VOLUME 9.8 fl (7.5-11.1); MONO % 8.4 % (3.8-10.2); NEUT % 60.5 % (42.8-82.8); PLATELET COUNT 143 K/MM3 (134-434); RBC 3.36 M/mm3 (4.00-5.60); RDW 14.7 % (11.9-15.9); WHITE BLOOD COUNT 8.6 K/mm3 (4.0-10.0)
[2019-02-26 09:18] LABS: ALBUMIN 3.6 g/dl (3.4-5.0); BILIRUBIN,TOTAL 0.4 mg/dL (0.2-1); BLOOD UREA NITROGEN 50.1 mg/dL (7-18); CALCIUM 8.3 mg/dL (8.5-10.1); CREATININE 1.6 mg/dL (0.55-1.3); MAGNESIUM 2.4 mg/dL (1.8-2.4); POTASSIUM 3.7 mmol/L (3.5-5.1); TOT PROT 6.3 g/dl (6.4-8.2); URIC ACID 6.9 mg/dL (2.6-7.2)
[2019-02-26] MEDS ORDERED: ACETAMINOPHEN 325 MG TABLET (FP) PO PRN (10:00)
[2019-02-26] MEDS ORDERED: DIPHENHYDRAMINE 50 MG in SODIUM CHLORIDE 50 ML IVPB ONE (10:00)
[2019-02-26] MEDS ORDERED: SODIUM CHLORIDE 250 ML IV ONE (10:00)
[2019-02-26] MEDS ORDERED: IGA IVPB ONE ×2 (10:30)
[2019-02-26] MEDS ORDERED: PRO IVPB ONE ×2 (10:30)
[2019-02-26] MEDS ORDERED: IMMUN GLOB IVPB ONE ×2 (10:30)
[2019-02-26] MEDS ORDERED: PRO IMMUN GLOB IVPB ONE (10:30)
[2019-02-26 14:16] VITALS: TEMP 97.9
[2019-02-26 14:17] VITALS: BP 130/47; PULSE 63
== END 2019-02-26 13:10 | disposition home or self-care (01) ==
LOC: JONCCHEMO 07:19 → J7W 09:36 → JONCCHEMO 13:10
PROVIDERS: ATTEND Internal Medicine Hematology & Oncology
PROC: 3E033GC Introduction of Other Therapeutic Substance into Peripheral Vein, Percutaneous Approach (ICD-10-PCS; principal; 2019-02-26)
DX: C91.90 Lymphoid leukemia, unspecified not having achieved remission (principal); E11.9 Type 2 diabetes mellitus without complications; I10 Essential (primary) hypertension
CPT/HCPCS: 36415; 80053; 82232; 82784; 83615; 83735; 84550; 85025; 96365; 96366; 96375; J1459

== ENCOUNTER 2019-03-26 05:37 | Day surgery (SDC) | payer OTHER ==
[2019-03-26 08:35] LABS: BASO % 0.6 % (0-2.0); EOS % 5.8 % (0-4.5); HEMATOCRIT 35.9 % (35.4-49); HEMOGLOBIN 11.9 GM/dL (11.7-16.9); LYMPH % 37.5 % (8-40); MCH 34.9 pg (25.7-33.7); MCHC 33.1 g/dl (32.0-35.9); MEAN CELL VOLUME 105.4 fl (80-96); MEAN PLT VOLUME 10.3 fl (7.5-11.1); NEUT % 47.1 % (42.8-82.8); PLATELET COUNT 121 K/MM3 (134-434); RDW 14.9 % (11.9-15.9); WHITE BLOOD COUNT 6.5 K/mm3 (4.0-10.0)
[2019-03-26 09:13] LABS: ALBUMIN 3.3 g/dl (3.4-5.0); BILIRUBIN,TOTAL 0.4 mg/dL (0.2-1); BLOOD UREA NITROGEN 50.8 mg/dL (7-18); CALCIUM 8.4 mg/dL (8.5-10.1); CREATININE 1.7 mg/dL (0.55-1.3); MAGNESIUM 2.4 mg/dL (1.8-2.4); POTASSIUM 3.5 mmol/L (3.5-5.1); TOT PROT 5.9 g/dl (6.4-8.2); URIC ACID 6.6 mg/dL (2.6-7.2)
[2019-03-26] MEDS ORDERED: DIPHENHYDRAMINE 50 MG in SODIUM CHLORIDE 50 ML IVPB ONE (09:30)
[2019-03-26] MEDS ORDERED: ACETAMINOPHEN 325 MG TABLET (FP) PO ONE (09:30)
[2019-03-26] MEDS ORDERED: PRO IVPB ONE (10:00)
[2019-03-26] MEDS ORDERED: IGA IVPB ONE (10:00)
[2019-03-26] MEDS ORDERED: IMMUN GLOB IVPB ONE (10:00)
[2019-03-26] MEDS ORDERED: diphenhydrAMINE HCL 25 MG CAPSULE (FP) PO ONE (10:00)
[2019-03-26 12:50] LABS: ANISOCYTOSIS 2+; MACROCYTOSIS 0; OVALOCYTE 1+; PLATELET ESTIMATE DECREASED
[2019-03-26] MEDS ORDERED: SODIUM CHLORIDE 250 ML IV ONE (13:00)
[2019-03-26 14:24] VITALS: PULSE 59; TEMP 97.6
[2019-03-26 14:26] VITALS: BP 141/55
== END 2019-03-26 12:55 | disposition home or self-care (01) ==
LOC: JONCCHEMO 05:37 → J7W 09:31 → JONCCHEMO 12:55
PROVIDERS: ATTEND Internal Medicine Hematology & Oncology
PROC: 3E033GC Introduction of Other Therapeutic Substance into Peripheral Vein, Percutaneous Approach (ICD-10-PCS; principal; 2019-03-26)
PROC: 3E0337Z Introduction of Electrolytic and Water Balance Substance into Peripheral Vein, Percutaneous Approach (ICD-10-PCS; 2019-03-26)
DX: Z76.89 Persons encountering health services in other specified circumstances (principal); C91.90 Lymphoid leukemia, unspecified not having achieved remission; I10 Essential (primary) hypertension; I25.10 Atherosclerotic heart disease of native coronary artery without angina pectoris; E11.9 Type 2 diabetes mellitus without complications; E78.00 Pure hypercholesterolemia, unspecified
CPT/HCPCS: 36415; 80053; 82232; 82728; 82784; 83540; 83550; 83615; 83735; 84550; 85025; 96365; 96366; J1459

== ENCOUNTER 2019-08-31 07:24 | Day surgery (SDC) | payer OTHER ==
[2019-08-31] MEDS ORDERED: diphenhydrAMINE HCL 25 MG CAPSULE (FP) PO ONE (09:30)
[2019-08-31] MEDS ORDERED: ACETAMINOPHEN 325 MG TABLET (FP) PO ONE (09:30)
[2019-08-31] MEDS ORDERED: IMMUN GLOB IVPB ONE (10:00)
[2019-08-31] MEDS ORDERED: PRO IMMUN GLOB IVPB ONE (10:00)
[2019-08-31] MEDS ORDERED: IGA IVPB ONE (10:00)
[2019-08-31] MEDS ORDERED: PRO IVPB ONE (10:00)
[2019-08-31] MEDS ORDERED: SODIUM CHLORIDE 0.45% 1,000 ML IV SCH (11:00)
[2019-08-31 11:11] LABS: BASO % 0.6 % (0-2.0); EOS % 3.4 % (0-4.5); HEMATOCRIT 34.6 % (35.4-49); HEMOGLOBIN 11.6 GM/dL (11.7-16.9); LYMPH % 36.8 % (8-40); MCH 35.1 pg (25.7-33.7); MCHC 33.4 g/dl (32.0-35.9); MEAN PLT VOLUME 9.5 fl (7.5-11.1); MONO % 6.4 % (3.8-10.2); NEUT % 52.8 % (42.8-82.8); PLATELET COUNT 123 K/MM3 (134-434); RBC 3.29 M/mm3 (4.00-5.60); WHITE BLOOD COUNT 7.9 K/mm3 (4.0-10.0)
[2019-08-31 11:45] LABS: ANISOCYTOSIS 2+; MACROCYTOSIS 2+; OVALOCYTE 1+; PLATELET ESTIMATE DECREASED
[2019-08-31 12:01] LABS: ALBUMIN 3.4 g/dl (3.4-5.0); BILIRUBIN,DIRECT 0.1 mg/dL (0.0-0.2); BILIRUBIN,TOTAL 0.5 mg/dL (0.2-1); BLOOD UREA NITROGEN 44.3 mg/dL (7-18); CALCIUM 12.3 mg/dL (8.5-10.1); CREATININE 1.9 mg/dL (0.55-1.3); MAGNESIUM 1.8 mg/dL (1.8-2.4); POTASSIUM 4.4 mmol/L (3.5-5.1); TOT PROT 6.2 g/dl (6.4-8.2)
[2019-08-31] MEDS ORDERED: SODIUM CHLORIDE 250 ML IV ONE (13:00)
[2019-08-31 16:55] VITALS: BP 132/54; PULSE 59; TEMP 98.5
[2019-09-01 18:07] LABS: BETA-2-MICROGLOBULIN 7.5 mg/L (0.6-2.4)
== END 2019-08-31 17:20 | disposition home or self-care (01) ==
LOC: JONCCHEMO 07:24
PROVIDERS: ATTEND Internal Medicine Hematology & Oncology
PROC: 3E033GC Introduction of Other Therapeutic Substance into Peripheral Vein, Percutaneous Approach (ICD-10-PCS; principal; 2019-08-31)
PROC: 3E0C3GC Introduction of Other Therapeutic Substance into Eye, Percutaneous Approach (ICD-10-PCS; 2019-08-31)
DX: D80.1 Nonfamilial hypogammaglobulinemia (principal)
CPT/HCPCS: 36415; 80053; 80076; 82232; 82784; 83615; 83735; 84550; 85025; 87086; 96361; 96365; 96366; J1459

== ENCOUNTER 2019-09-04 07:22 | Day surgery (SDC) | payer OTHER ==
[2019-09-04] MEDS ORDERED: SODIUM CHLORIDE 0.45%/POT 20 MEQ/1,000 ML INFUS.BAG IV ONE (08:30)
[2019-09-04] MEDS ORDERED: POT IV ONE (08:56)
[2019-09-04] MEDS ORDERED: SODIUM CHLORIDE IV ONE (08:56)
[2019-09-04] MEDS ORDERED: DENOSUMAB 120 MG/1.7 ML VIAL SQ ONE (09:00)
[2019-09-04 16:13] VITALS: BP 118/49; PULSE 88; TEMP 98
== END 2019-09-04 14:45 | disposition home or self-care (01) ==
LOC: JONCCHEMO 07:22
PROVIDERS: ATTEND Internal Medicine Hematology & Oncology
PROC: 3E0337Z Introduction of Electrolytic and Water Balance Substance into Peripheral Vein, Percutaneous Approach (ICD-10-PCS; principal; 2019-09-04)
PROC: 3E013GC Introduction of Other Therapeutic Substance into Subcutaneous Tissue, Percutaneous Approach (ICD-10-PCS; 2019-09-04)
DX: D80.1 Nonfamilial hypogammaglobulinemia (principal)
CPT/HCPCS: 96360; 96361; 96372; J0897; J3480

== ENCOUNTER 2019-10-01 07:19 | Day surgery (SDC) | payer OTHER ==
[2019-10-01] MEDS ORDERED: ACETAMINOPHEN 325 MG TABLET (FP) PO PRN (08:11)
[2019-10-01] MEDS ORDERED: diphenhydrAMINE HCL 25 MG CAPSULE (FP) PO ONE (10:00)
[2019-10-01] MEDS ORDERED: SODIUM CHLORIDE 250 ML IV ONE (10:00)
[2019-10-01] MEDS ORDERED: IGA IVPB ONE (10:30)
[2019-10-01] MEDS ORDERED: IMMUN GLOB IVPB ONE (10:30)
[2019-10-01] MEDS ORDERED: [UNRECOGNIZED DRUG - OTHER] IVPB ONE (10:30)
[2019-10-01] MEDS ORDERED: PRO IMMUN GLOB IVPB ONE (10:30)
[2019-10-01] MEDS ORDERED: PRO IVPB ONE (10:30)
[2019-10-01 10:45] LABS: BASO % 0.7 % (0-2.0); EOS % 3.2 % (0-4.5); HEMATOCRIT 32.1 % (35.4-49); HEMOGLOBIN 10.9 GM/dL (11.7-16.9); LYMPH % 36.6 % (8-40); MCH 34.8 pg (25.7-33.7); MEAN CELL VOLUME 102.3 fl (80-96); MEAN PLT VOLUME 8.6 fl (7.5-11.1); MONO % 8.1 % (3.8-10.2); NEUT % 51.4 % (42.8-82.8); PLATELET COUNT 123 K/MM3 (134-434); RBC 3.14 M/mm3 (4.00-5.60)
[2019-10-01 11:21] LABS: ALBUMIN 3.6 g/dl (3.4-5.0); BILIRUBIN,DIRECT 0.1 mg/dL (0.0-0.2); BILIRUBIN,TOTAL 0.4 mg/dL (0.2-1); BLOOD UREA NITROGEN 40.1 mg/dL (7-18); CALCIUM 8.7 mg/dL (8.5-10.1); CREATININE 1.7 mg/dL (0.55-1.3); MAGNESIUM 2.2 mg/dL (1.8-2.4); PHOSPHOROUS 2.8 mg/dL (2.5-4.9); POTASSIUM 4.3 mmol/L (3.5-5.1); TOT PROT 6.2 g/dl (6.4-8.2); URIC ACID 5.1 mg/dL (2.6-7.2)
[2019-10-01 12:03] LABS: ANISOCYTOSIS 1+; MACROCYTOSIS 1+; PLATELET ESTIMATE DECREASED
[2019-10-01 17:14] VITALS: TEMP 97.5
[2019-10-01 17:26] VITALS: BP 108/48; PULSE 61
[2019-10-03 07:08] LABS: BETA-2-MICROGLOBULIN 8.7 mg/L (0.6-2.4)
== END 2019-10-01 15:05 | disposition home or self-care (01) ==
LOC: JONCCHEMO 07:19
PROVIDERS: ATTEND Internal Medicine Hematology & Oncology
PROC: 3E033GC Introduction of Other Therapeutic Substance into Peripheral Vein, Percutaneous Approach (ICD-10-PCS; principal; 2019-10-01)
PROC: 3E033GC Introduction of Other Therapeutic Substance into Peripheral Vein, Percutaneous Approach (ICD-10-PCS; 2019-10-01)
DX: D80.1 Nonfamilial hypogammaglobulinemia (principal)
CPT/HCPCS: 36415; 80048; 80076; 82232; 82784; 83615; 83735; 84100; 84550; 85025; 96361; 96365; 96366; J1459

== ENCOUNTER 2019-10-21 04:56 | Day surgery (SDC) | payer OTHER ==
[2019-10-20 20:06] VITALS: BMI 27.7
[2019-10-21 13:15] VITALS: BP 114/52; PULSE 70; TEMP 98.2
--- NOTE | 2019-10-29 13:59 | PATH ---
Surgical Pathology Report Patient Name: KRIS ECHAVARRIA [facility]. Rec. #: [id number] /Age/Gender: 1935 (Age: 84) / M Account: [id number] Location: RADIOLOGY INTER Taken: 10/21/2019 Received: 10/21/2019 Reported: 10/29/2019 Physicians: Miguel Angel Swift M.D. 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 SEE COMMENT. COMMENT: Sections reveal small fragments of lymphoid tissue infiltrated by many small sized lymphocytes with round to oval nuclei, condensed chromatin and scant cytoplasm. Focally, some plasmacytoid cells are also noted. Immunostains performed with adequate controls show that the atypical cells are positive for CD20, PAX-5, CD23 (focal), BCL-2, IgD, CD43 (dim) while negative for CD5, CD10, cyclin D1 and p53. There is plasmacytic differentiation with lambda restriction. The Ki-67 proliferative rate is 10-15%. CD21 highlights focally disrupted follicular dendritic meshworks. In summary, the findings are indicative of involvement by a B-cell lymphoma with a non-specific immunophenotype. There is plasmacytic differentiation. Lymphocytes morphology (small cell size with round nuclei) is compatible with CLL although the immunophenotype is unusual for CLL. Therefore, the differential diagnosis includes CD5(-) atypical small lymphocytic lymphoma/chronic lymphocytic leukemia, marginal zone lymphoma and lymphoplasmacytic lymphoma. 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 Correlation with pending MYD88 mutation study is recommended for a complete evaluation. Correlation with peripheral blood and bone marrow study is also recommended.. This case was sent to Dr. Alex Chang from [facility], [place], [place] ([id number]) the diagnosis above reflects his opinion. FLOW CYTOMETRY performed and interpreted at [facility] ([id number]) shows the following: INTERPRETATION: LYMPH NODE, RIGHT AXILLARY: - B cell lymphoma with non-specific immunophenotype. COMMENT: Findings suggest large B cell lymphoma. Correlation with morphologic evaluation of the original tissue sections is recommended. PHENOTYPE: A monoclonal lambda B-cell population (82% of total) lacking CD5 or CD10 expression is detected. T cells (10% of total) express lilly-T cell antigens with CD4/8 ratio 9.7:1. See [facility] reports for additional details. The flow cytometry findings were discussed with Dr. Nam on 10/26/2019. Electronically Signed Josue Paige M.D. Addendum Reported: 11/10/2019 Addendum Diagnosis MYD88 performed and interpreted at [facility] ([id number]) shows the following: RESULTS: MYD88 L265P Mutation: Not Detected INTERPRETATION: Negative for MYD88 L265P mutation See [facility] report for additional details. Report faxed to Dr. Nam and Dr. Farnsworth on 11/10/19. Josue Paige M.D. Gross Description Received in formalin labeled "right axillary lymph node," is a 0.9 x 0.4 x 0.1 cm aggregate of merchant brown, irregular to cylindrical portions of soft tissue. The formalin is filtered and the specimen is entirely submitted in one cassette. There is additional tissue received in RPMI solution which is sent for [facility] for flow cytometry analysis. DL/10/21/2019 saudi10/21/2019
== END 2019-10-21 13:16 | disposition home or self-care (01) ==
LOC: JRADIR 04:56
PROVIDERS: ATTEND Internal Medicine Hematology & Oncology
PROC: 07B63ZX Excision of Left Axillary Lymphatic, Percutaneous Approach, Diagnostic (ICD-10-PCS; principal; 2019-10-21)
DX: C82.84 Other types of follicular lymphoma, lymph nodes of axilla and upper limb (principal)
CPT/HCPCS: 76942-TC; 87899; 88305-TC

== ENCOUNTER 2019-10-29 06:30 | Day surgery (SDC) | payer OTHER ==
[2019-10-29] MEDS ORDERED: diphenhydrAMINE HCL 25 MG CAPSULE (FP) PO ONE (09:30)
[2019-10-29] MEDS ORDERED: ACETAMINOPHEN 325 MG TABLET (FP) PO ONE (09:30)
[2019-10-29] MEDS ORDERED: IMMUN GLOB IVPB ONE (10:00)
[2019-10-29] MEDS ORDERED: PRO IVPB ONE (10:00)
[2019-10-29] MEDS ORDERED: PRO IMMUN GLOB IVPB ONE (10:00)
[2019-10-29] MEDS ORDERED: IGA IVPB ONE (10:00)
[2019-10-29 10:56] LABS: BASO % 0.4 % (0-2.0); EOS % 2.9 % (0-4.5); HEMATOCRIT 32.6 % (35.4-49); HEMOGLOBIN 10.7 GM/dL (11.7-16.9); LYMPH % 47.8 % (8-40); MCH 34.2 pg (25.7-33.7); MCHC 32.7 g/dl (32.0-35.9); MEAN CELL VOLUME 104.6 fl (80-96); MEAN PLT VOLUME 8.8 fl (7.5-11.1); MONO % 6.9 % (3.8-10.2); PLATELET COUNT 108 K/MM3 (134-434); RBC 3.12 M/mm3 (4.00-5.60); RDW 15.4 % (11.9-15.9); WHITE BLOOD COUNT 12.5 K/mm3 (4.0-10.0)
[2019-10-29 11:25] LABS: ALBUMIN 3.7 g/dl (3.4-5.0); BILIRUBIN,DIRECT 0.1 mg/dL (0.0-0.2); BILIRUBIN,TOTAL 0.4 mg/dL (0.2-1); CREATININE 1.9 mg/dL (0.55-1.3); MAGNESIUM 2.3 mg/dL (1.8-2.4); POTASSIUM 4.5 mmol/L (3.5-5.1); TOT PROT 6.4 g/dl (6.4-8.2); URIC ACID 6.3 mg/dL (2.6-7.2)
[2019-10-29 11:57] LABS: ANISOCYTOSIS 2+; MACROCYTOSIS 2+; PLATELET ESTIMATE DECREASED
[2019-10-29] MEDS ORDERED: SODIUM CHLORIDE 250 ML IV ONE (12:30)
[2019-10-29 16:10] VITALS: TEMP 97.7
[2019-10-29 16:12] VITALS: BP 122/85; PULSE 67
== END 2019-10-29 15:00 | disposition home or self-care (01) ==
LOC: JONCCHEMO 06:30
PROVIDERS: ATTEND Internal Medicine Hematology & Oncology
PROC: 3E033GC Introduction of Other Therapeutic Substance into Peripheral Vein, Percutaneous Approach (ICD-10-PCS; principal; 2019-10-29)
DX: D80.1 Nonfamilial hypogammaglobulinemia (principal)
CPT/HCPCS: 36415; 80048; 80076; 82232; 82784; 83615; 83735; 84550; 85025; 96365; 96366; J1459

== ENCOUNTER 2019-11-24 07:19 | Day surgery (SDC) | payer OTHER ==
--- OUTSIDE RECORDS SUMMARY | 2019-11-24 07:23 | XMS ---
:1935 Author Organization [facility] Support Name Relationship Address Phone RE, RETIRED Unavailable Unavailable Unavailable RE Unavailable Unavailable Unavailable DREA ECHAVARRIA [address] [facility] [place] [address] Re-disclosure Warning The records that you are about to access may contain information from federally- assisted alcohol or drug abuse programs. If such information is present, then the following federally mandated warning applies: This information has been disclosed to you from records protected by federal confidentiality rules (42 CFR part 2). The federal rules prohibit you from making any further disclosure of this information unless further disclosure is expressly permitted by the written consent of the person to whom it pertains or as otherwise permitted by 42 CFR part 2. A general authorization for the release of medical or other information is NOT sufficient for this purpose. The Federal rules restrict any use of the information to criminally investigate or prosecute any alcohol or drug abuse patient.The records that you are about to access may contain highly sensitive health information, the redisclosure of which is protected by Article 27-F of the [facility] Public Health law. If you continue you may haveaccess to information: Regarding HIV / AIDS; Provided by facilities licensed or operated by the [facility] Office of Mental Health; or Provided by the [facility] Office for People With Developmental Disabilities. If such information is present, then the following [facility] mandated warning applies: This information has been disclosed to you from confidential records which are protected by state law. State law prohibits you from making any further disclosure of this information without the specific written consent of the person to whom it pertains, or as otherwise permitted by law. Any unauthorized further disclosure in violation of state law may result in a fine or shelter sentence or both. A general authorization for the release of medical or other information is NOT sufficient authorization for further disclosure. Insurance Providers Payer name Policy type Policy ID Covered Covered alliance party's Policy P patricia / Coverage alliance party ID relationship to [employer] ormation type [employer] LOCAL OTHER [id number] OT [id number] MEDICARE [id number] SP [id number] PLUMBERS [id number] OT [id number] [employer] LOCAL 21 [id number] [place] [id number] MEDICARE [id number] SP [id number] A LOCAL [id number] SP [id number] MEDICARE [id number] SP [id number] LOCAL [id number] OT [id number] LOCAL [id number] SP [id number] Results ID Date Data Source [id number] 10/17/2019 08:23:00 AM EDT [facility] Name Value Range Interpretation Description Data Sup porting Code Source(s) Document(s ) SARS [facility] coronavirus 2 RNA This lab was ordered by [facility] and reported by [facility]. ID Date Data Source [id number] 06/27/2019 12:00:00 AM EDT [facility] Name Value Range Interpretation Code Description Data Surekha rce(s) Supporting Document(s ) 2019-nCoV [facility] RNA XXX LAEXIS+probe- Imp This lab was ordered by [facility] and reported by [facility] Procedure
[2019-11-24 09:57] LABS: BASO % 0.5 % (0-2.0); EOS % 1.9 % (0-4.5); HEMATOCRIT 29.8 % (35.4-49); HEMOGLOBIN 10.2 GM/dL (11.7-16.9); LYMPH % 44.4 % (8-40); MCH 35.8 pg (25.7-33.7); MCHC 34.2 g/dl (32.0-35.9); MEAN CELL VOLUME 104.8 fl (80-96); MEAN PLT VOLUME 8.4 fl (7.5-11.1); NEUT % 47.2 % (42.8-82.8); PLATELET COUNT 92 K/MM3 (134-434); RBC 2.85 M/mm3 (4.00-5.60); WHITE BLOOD COUNT 10.2 K/mm3 (4.0-10.0)
[2019-11-24] MEDS ORDERED: ACETAMINOPHEN 325 MG TABLET (FP) PO ONE (10:00)
[2019-11-24] MEDS ORDERED: diphenhydrAMINE HCL 25 MG CAPSULE (FP) PO ONE (10:00)
[2019-11-24 10:26] LABS: ALBUMIN 3.2 g/dl (3.4-5.0); BILIRUBIN,DIRECT 0.1 mg/dL (0.0-0.2); BILIRUBIN,TOTAL 0.4 mg/dL (0.2-1); BLOOD UREA NITROGEN 45.3 mg/dL (7-18); CALCIUM 9.8 mg/dL (8.5-10.1); CREATININE 2.1 mg/dL (0.55-1.3); POTASSIUM 4.1 mmol/L (3.5-5.1); URIC ACID 6.8 mg/dL (2.6-7.2)
[2019-11-24] MEDS ORDERED: IMMUN GLOB IVPB ONE (10:30)
[2019-11-24] MEDS ORDERED: [UNRECOGNIZED DRUG - OTHER] IVPB ONE (10:30)
[2019-11-24] MEDS ORDERED: IGA IVPB ONE (10:30)
[2019-11-24] MEDS ORDERED: PRO IMMUN GLOB IVPB ONE (10:30)
[2019-11-24] MEDS ORDERED: PRO IVPB ONE (10:30)
[2019-11-24 13:20] LABS: ANISOCYTOSIS 1+; MACROCYTOSIS 1+; OVALOCYTE 1+
[2019-11-24 13:26] LABS: PLATELET ESTIMATE DECREASED
[2019-11-24] MEDS ORDERED: SODIUM CHLORIDE 250 ML IV ONE (14:00)
[2019-11-24 17:53] VITALS: BP 119/49; PULSE 79; TEMP 97.6
== END 2019-11-24 15:40 | disposition home or self-care (01) ==
LOC: JONCCHEMO 07:19
PROVIDERS: ATTEND Internal Medicine Hematology & Oncology
PROC: 3E033GC Introduction of Other Therapeutic Substance into Peripheral Vein, Percutaneous Approach (ICD-10-PCS; principal; 2019-11-24)
PROC: 3E033GC Introduction of Other Therapeutic Substance into Peripheral Vein, Percutaneous Approach (ICD-10-PCS; 2019-11-24)
DX: D80.1 Nonfamilial hypogammaglobulinemia (principal)
CPT/HCPCS: 36415; 80048; 80076; 82232; 83036; 83615; 83735; 84550; 85025; 96361; 96365; 96366; J1459

== ENCOUNTER 2019-12-28 09:21 | Day surgery (SDC) | payer OTHER ==
[2019-12-28] MEDS ORDERED: ACETAMINOPHEN 325 MG TABLET (FP) PO ONE (09:30)
[2019-12-28] MEDS ORDERED: diphenhydrAMINE HCL 25 MG CAPSULE (FP) PO ONE (09:30)
[2019-12-28] MEDS ORDERED: PRO IVPB ONE (10:00)
[2019-12-28] MEDS ORDERED: [UNRECOGNIZED DRUG - OTHER] IVPB ONE (10:00)
[2019-12-28] MEDS ORDERED: IMMUN GLOB IVPB ONE (10:00)
[2019-12-28] MEDS ORDERED: PRO IMMUN GLOB IVPB ONE (10:00)
[2019-12-28] MEDS ORDERED: IGA IVPB ONE (10:00)
[2019-12-28 11:29] LABS: BASO % 0.3 % (0-2.0); EOS % 1.5 % (0-4.5); HEMATOCRIT 28.7 % (35.4-49); HEMOGLOBIN 9.5 GM/dL (11.7-16.9); LYMPH % 53.4 % (8-40); MCH 35.6 pg (25.7-33.7); MCHC 33.3 g/dl (32.0-35.9); MEAN CELL VOLUME 106.8 fl (80-96); MEAN PLT VOLUME 8.9 fl (7.5-11.1); MONO % 5.4 % (3.8-10.2); NEUT % 39.4 % (42.8-82.8); PLATELET COUNT 110 K/MM3 (134-434); RBC 2.69 M/mm3 (4.00-5.60); RDW 16.4 % (11.9-15.9); WHITE BLOOD COUNT 13.2 K/mm3 (4.0-10.0)
[2019-12-28 11:50] LABS: POTASSIUM 3.8 mmol/L (3.5-5.1)
[2019-12-28 11:52] LABS: BLOOD UREA NITROGEN 38.5 mg/dL (7-18); CALCIUM 8.3 mg/dL (8.5-10.1)
[2019-12-28 11:53] LABS: MAGNESIUM 1.9 mg/dL (1.8-2.4)
[2019-12-28 11:55] LABS: CREATININE 2.1 mg/dL (0.55-1.3); URIC ACID 5.5 mg/dL (2.6-7.2)
[2019-12-28] MEDS ORDERED: SODIUM CHLORIDE 250 ML IV ONE (13:00)
[2019-12-28 14:18] LABS: ANISOCYTOSIS 1+; MACROCYTOSIS 1+; PLATELET ESTIMATE DECREASED
[2019-12-28 17:29] VITALS: TEMP 97.5
[2019-12-28 17:30] VITALS: BP 103/43; PULSE 79
== END 2019-12-28 16:15 | disposition home or self-care (01) ==
LOC: JONCCHEMO 09:21
PROVIDERS: ATTEND Internal Medicine Hematology & Oncology
PROC: 3E033GC Introduction of Other Therapeutic Substance into Peripheral Vein, Percutaneous Approach (ICD-10-PCS; principal; 2019-12-28)
DX: D80.1 Nonfamilial hypogammaglobulinemia (principal)
CPT/HCPCS: 36415; 80048; 82232; 83615; 83735; 84550; 85025; 96365; 96366; J1459

== ENCOUNTER 2020-01-10 09:00 | Inpatient (IN) | payer OTHER ==
[2020-01-10 10:15] LABS: BASO % 0.4 % (0-2.0); EOS % 0.7 % (0-4.5); HEMATOCRIT 28.3 % (35.4-49); HEMOGLOBIN 9.3 GM/dL (11.7-16.9); MCH 35.1 pg (25.7-33.7); MCHC 32.8 g/dl (32.0-35.9); MEAN CELL VOLUME 107.1 fl (80-96); MEAN PLT VOLUME 8.6 fl (7.5-11.1); MONO % 3.8 % (3.8-10.2); NEUT % 35.1 % (42.8-82.8); PLATELET COUNT 139 K/MM3 (134-434); RBC 2.64 M/mm3 (4.00-5.60); RDW 16.2 % (11.9-15.9); WHITE BLOOD COUNT 20.3 K/mm3 (4.0-10.0)
[2020-01-10 10:24] LABS: POTASSIUM 4.8 mmol/L (3.5-5.1)
[2020-01-10 10:26] LABS: CALCIUM 8.3 mg/dL (8.5-10.1); INR 1.23 (0.83-1.09)
[2020-01-10 10:28] LABS: ALBUMIN 3.3 g/dl (3.4-5.0); BLOOD UREA NITROGEN 50.1 mg/dL (7-18)
[2020-01-10 10:30] LABS: CREATININE 2.9 mg/dL (0.55-1.3); PHOSPHOROUS 3.6 mg/dL (2.5-4.9)
[2020-01-10 10:31] LABS: BILIRUBIN,TOTAL 0.5 mg/dL (0.2-1); TOT PROT 6.4 g/dl (6.4-8.2)
[2020-01-10 10:35] LABS: N-TERMINAL BNP 1001.1 pg/ml (5-450)
[2020-01-10 11:38] LABS: ANISOCYTOSIS 2+; MACROCYTOSIS 2+
[2020-01-10 12:51] LABS: EPI CELLS 22 /uL (0-25.1); HYALINE CASTS 1 /uL (0-3.1); URINE APPEARANCE CLOUDY; URINE BACTERIA 49 /uL (0-1359); URINE BILIRUBIN NEGATIVE (NEGATIVE); URINE COLOR YELLOW; URINE GLUCOSE (UA) NEGATIVE (NEGATIVE); URINE KETONE NEGATIVE (NEGATIVE); URINE LEUK ESTERASE TRACE (NEGATIVE); URINE NITRITE NEGATIVE (NEGATIVE); URINE PROTEIN TRACE (NEGATIVE); URINE RBC 11 /uL (0-23.9); URINE UROBILINOGEN 0.2 mg/dL (0.2-1.0); URINE WBC 36 /uL (0-25.8)
[2020-01-10 13:18] LABS: YEAST NO SEEN (NEGATIVE)
[2020-01-10] MEDS ORDERED: ACETAMINOPHEN 325 MG TABLET (FP) PO PRN (13:22)
[2020-01-10] MEDS ORDERED: FUROSEMIDE 40 MG/4 ML INJECTABLE VIAL ONE (16:22)
[2020-01-10] MEDS: FUROSEMIDE 40 MG/4 ML INJECTABLE VIAL IVPUSH SCH (16:23)
[2020-01-10] MEDS ORDERED: SODIUM CHLORIDE 1,000 ML IV SCH (20:00)
[2020-01-10] MEDS: traZODone HCL 50 MG TABLET (FP) PO SCH (21:57)
[2020-01-10] MEDS: ASPIRIN 81 MG CHEWABLE TABLETS PO SCH (21:57)
[2020-01-10] MEDS: FOLIC ACID 1 MG TABLET (FP) PO SCH (21:57)
[2020-01-10] MEDS: ATORVASTATIN CA 10 MG TABLET (FP) PO SCH (21:57)
[2020-01-10] MEDS: HEPARIN NA (PORCINE) 5,000 UNITS/ML 1ML VIAL SQ SCH (22:05)
[2020-01-11] MEDS: INSULIN (LEVEMIR) 100 UNITS/ML UNITS SQ SCH (06:20)
[2020-01-11] MEDS: LEVOTHYROXINE NA 25 MCG TABLET (FP) PO SCH (06:20)
[2020-01-11 06:31] LABS: BASO % 0.4 % (0-2.0); EOS % 1.2 % (0-4.5); HEMATOCRIT 25.8 % (35.4-49); HEMOGLOBIN 8.3 GM/dL (11.7-16.9); LYMPH % 57.8 % (8-40); MCH 34.4 pg (25.7-33.7); MCHC 32.3 g/dl (32.0-35.9); MEAN CELL VOLUME 106.2 fl (80-96); MEAN PLT VOLUME 8.1 fl (7.5-11.1); NEUT % 35.6 % (42.8-82.8); PLATELET COUNT 131 K/MM3 (134-434); RBC 2.42 M/mm3 (4.00-5.60); RDW 16.4 % (11.9-15.9); WHITE BLOOD COUNT 13.8 K/mm3 (4.0-10.0)
[2020-01-11 06:43] LABS: POTASSIUM 4.6 mmol/L (3.5-5.1)
[2020-01-11 06:45] LABS: CALCIUM 8.7 mg/dL (8.5-10.1)
[2020-01-11 06:46] LABS: BLOOD UREA NITROGEN 47.9 mg/dL (7-18)
[2020-01-11 06:49] LABS: CREATININE 2.7 mg/dL (0.55-1.3)
[2020-01-11 06:51] LABS: BILIRUBIN,TOTAL 0.4 mg/dL (0.2-1); TOT PROT 5.5 g/dl (6.4-8.2)
[2020-01-11] MEDS ORDERED: GLIMEPIRIDE 4 MG TABLET PO SCH (07:00)
[2020-01-11] MEDS: valACYclovir HCL 500 MG TABLET (FP) PO SCH (09:37)
[2020-01-11] MEDS: HEPARIN NA (PORCINE) 5,000 UNITS/ML 1ML VIAL SQ SCH ×2 (09:37→21:38)
[2020-01-11] MEDS: ALLOPURINOL 100 MG TABLET (FP) PO SCH (09:37)
[2020-01-11] MEDS: FUROSEMIDE 40 MG/4 ML INJECTABLE VIAL IVPUSH SCH (09:37)
[2020-01-11] MEDS ORDERED: POTASSIUM CHLORIDE TABS 20 MEQ TABLET.ER (FP) PO SCH (10:00)
[2020-01-11] MEDS ORDERED: LOSARTAN POTASSIUM 50 MG TABLET PO SCH (10:00)
[2020-01-11] MEDS ORDERED: amLODIPine BESYLATE 5 MG TABLET (FP) PO SCH (10:00)
[2020-01-11] MEDS ORDERED: FUROSEMIDE 40 MG TABLET (FP) PO SCH (10:00)
[2020-01-11 10:45] LABS: ANISOCYTOSIS 1+; MACROCYTOSIS 0; OVALOCYTE 1+; PLATELET ESTIMATE DECREASED; TOXIC GRANULATION 2+
[2020-01-11] MEDS: oxyCODONE HCL 5 MG TABLET PO PRN (16:51)
[2020-01-11] MEDS: ATORVASTATIN CA 10 MG TABLET (FP) PO SCH (21:37)
[2020-01-11] MEDS: FOLIC ACID 1 MG TABLET (FP) PO SCH (21:38)
[2020-01-11] MEDS: traZODone HCL 50 MG TABLET (FP) PO SCH (21:38)
[2020-01-11] MEDS: ASPIRIN 81 MG CHEWABLE TABLETS PO SCH (21:38)
[2020-01-12] MEDS: LEVOTHYROXINE NA 25 MCG TABLET (FP) PO SCH (06:22)
[2020-01-12] MEDS: INSULIN SLIDING SCALE (NOVOLOG) 1 VIAL SQ SCH ×4 (06:23→21:27)
[2020-01-12] MEDS: INSULIN (LEVEMIR) 100 UNITS/ML UNITS SQ SCH (06:23)
[2020-01-12 07:08] LABS: BASO % 0.6 % (0-2.0); EOS % 1.3 % (0-4.5); HEMATOCRIT 26.1 % (35.4-49); HEMOGLOBIN 8.3 GM/dL (11.7-16.9); LYMPH % 59.2 % (8-40); MCH 34.1 pg (25.7-33.7); MCHC 31.8 g/dl (32.0-35.9); MEAN CELL VOLUME 107.1 fl (80-96); NEUT % 33.9 % (42.8-82.8); PLATELET COUNT 134 K/MM3 (134-434); RBC 2.44 M/mm3 (4.00-5.60); RDW 16.7 % (11.9-15.9); WHITE BLOOD COUNT 15.4 K/mm3 (4.0-10.0)
[2020-01-12 07:27] LABS: POTASSIUM 4.4 mmol/L (3.5-5.1)
[2020-01-12 07:30] LABS: CALCIUM 8.3 mg/dL (8.5-10.1)
[2020-01-12 07:31] LABS: BLOOD UREA NITROGEN 43.9 mg/dL (7-18)
[2020-01-12 07:34] LABS: CREATININE 2.7 mg/dL (0.55-1.3)
[2020-01-12 07:35] LABS: BILIRUBIN,TOTAL 0.9 mg/dL (0.2-1); TOT PROT 5.7 g/dl (6.4-8.2)
[2020-01-12] MEDS: valACYclovir HCL 500 MG TABLET (FP) PO SCH (09:59)
[2020-01-12] MEDS: ALLOPURINOL 100 MG TABLET (FP) PO SCH (09:59)
[2020-01-12] MEDS: HEPARIN NA (PORCINE) 5,000 UNITS/ML 1ML VIAL SQ SCH ×2 (09:59→21:27)
[2020-01-12] MEDS: FUROSEMIDE 40 MG/4 ML INJECTABLE VIAL IVPUSH SCH (09:59)
[2020-01-12 10:14] LABS: ANISOCYTOSIS 1+; MACROCYTOSIS 1+; PLATELET ESTIMATE DECREASED
[2020-01-12 14:54] VITALS: BMI 26.4
[2020-01-12] MEDS: oxyCODONE HCL 5 MG TABLET PO PRN (17:32)
[2020-01-12] MEDS: ATORVASTATIN CA 10 MG TABLET (FP) PO SCH (21:32)
[2020-01-12] MEDS: FOLIC ACID 1 MG TABLET (FP) PO SCH (21:33)
[2020-01-12] MEDS: ASPIRIN 81 MG CHEWABLE TABLETS PO SCH (21:33)
[2020-01-12] MEDS: traZODone HCL 50 MG TABLET (FP) PO SCH (21:33)
[2020-01-13] MEDS: INSULIN SLIDING SCALE (NOVOLOG) 1 VIAL SQ SCH ×4 (06:09→22:24)
[2020-01-13] MEDS: LEVOTHYROXINE NA 25 MCG TABLET (FP) PO SCH (06:09)
[2020-01-13] MEDS: INSULIN (LEVEMIR) 100 UNITS/ML UNITS SQ SCH (06:09)
[2020-01-13 08:03] LABS: BASO % 0.4 % (0-2.0); EOS % 1.3 % (0-4.5); HEMATOCRIT 26.6 % (35.4-49); HEMOGLOBIN 8.8 GM/dL (11.7-16.9); LYMPH % 63.7 % (8-40); MCH 35.7 pg (25.7-33.7); MCHC 33.2 g/dl (32.0-35.9); MEAN CELL VOLUME 107.5 fl (80-96); MEAN PLT VOLUME 8.5 fl (7.5-11.1); MONO % 4.2 % (3.8-10.2); NEUT % 30.4 % (42.8-82.8); PLATELET COUNT 128 K/MM3 (134-434); RBC 2.47 M/mm3 (4.00-5.60); RDW 16.3 % (11.9-15.9); WHITE BLOOD COUNT 16.5 K/mm3 (4.0-10.0)
[2020-01-13 08:20] LABS: POTASSIUM 4.7 mmol/L (3.5-5.1)
[2020-01-13 08:23] LABS: ALBUMIN 3.2 g/dl (3.4-5.0); BLOOD UREA NITROGEN 42.2 mg/dL (7-18); CALCIUM 8.4 mg/dL (8.5-10.1)
[2020-01-13 08:27] LABS: CREATININE 2.9 mg/dL (0.55-1.3)
[2020-01-13 08:28] LABS: BILIRUBIN,TOTAL 0.4 mg/dL (0.2-1); TOT PROT 5.9 g/dl (6.4-8.2)
[2020-01-13 09:31] LABS: ANISOCYTOSIS 2+; MACROCYTOSIS 2+; PLATELET ESTIMATE DECREASED
[2020-01-13] MEDS: HEPARIN NA (PORCINE) 5,000 UNITS/ML 1ML VIAL SQ SCH ×2 (09:49→22:20)
[2020-01-13] MEDS: valACYclovir HCL 500 MG TABLET (FP) PO SCH (09:49)
[2020-01-13] MEDS: ALLOPURINOL 100 MG TABLET (FP) PO SCH (09:49)
[2020-01-13] MEDS: FUROSEMIDE 40 MG/4 ML INJECTABLE VIAL IVPUSH SCH (09:49)
[2020-01-13] MEDS ORDERED: LOSARTAN POTASSIUM 50 MG TABLET PO SCH (11:59)
[2020-01-13] MEDS: FOLIC ACID 1 MG TABLET (FP) PO SCH (22:20)
[2020-01-13] MEDS: ATORVASTATIN CA 10 MG TABLET (FP) PO SCH (22:20)
[2020-01-13] MEDS: traZODone HCL 50 MG TABLET (FP) PO SCH (22:20)
[2020-01-13] MEDS: ASPIRIN 81 MG CHEWABLE TABLETS PO SCH (22:20)
[2020-01-14] MEDS ORDERED: INSULIN (NOVOLOG) ASPART 100 UNITS/ML 10ML VIAL ONE (05:48)
[2020-01-14] MEDS ORDERED: FUROSEMIDE 40 MG TABLET (FP) PO SCH (06:00)
[2020-01-14] MEDS: INSULIN (LEVEMIR) 100 UNITS/ML UNITS SQ SCH (06:17)
[2020-01-14] MEDS: INSULIN SLIDING SCALE (NOVOLOG) 1 VIAL SQ SCH ×2 (06:19→12:16)
[2020-01-14] MEDS: LEVOTHYROXINE NA 25 MCG TABLET (FP) PO SCH (06:19)
[2020-01-14 06:28] LABS: BASO % 0.6 % (0-2.0); EOS % 1.5 % (0-4.5); HEMATOCRIT 25.6 % (35.4-49); HEMOGLOBIN 8.2 GM/dL (11.7-16.9); LYMPH % 60.7 % (8-40); MCH 34.3 pg (25.7-33.7); MEAN CELL VOLUME 107.2 fl (80-96); MONO % 4.7 % (3.8-10.2); NEUT % 32.5 % (42.8-82.8); PLATELET COUNT 127 K/MM3 (134-434); RBC 2.39 M/mm3 (4.00-5.60); RDW 16.2 % (11.9-15.9); WHITE BLOOD COUNT 15.2 K/mm3 (4.0-10.0)
[2020-01-14 06:40] LABS: POTASSIUM 4.3 mmol/L (3.5-5.1)
[2020-01-14 06:42] LABS: BLOOD UREA NITROGEN 43.4 mg/dL (7-18)
[2020-01-14 06:46] LABS: CREATININE 2.7 mg/dL (0.55-1.3)
[2020-01-14 06:47] LABS: BILIRUBIN,TOTAL 0.4 mg/dL (0.2-1); TOT PROT 5.7 g/dl (6.4-8.2)
[2020-01-14 09:15] LABS: ANISOCYTOSIS 1+; MACROCYTOSIS 1+; PLATELET ESTIMATE DECREASED
[2020-01-14] MEDS ORDERED: PT OWN MED DRAWER 7, Y5N ONE (09:31)
[2020-01-14] MEDS: valACYclovir HCL 500 MG TABLET (FP) PO SCH (09:33)
[2020-01-14] MEDS: ALLOPURINOL 100 MG TABLET (FP) PO SCH (09:33)
[2020-01-14] MEDS: HEPARIN NA (PORCINE) 5,000 UNITS/ML 1ML VIAL SQ SCH (09:34)
[2020-01-14 14:16] VITALS: BP 121/60; PULSE 97; TEMP 97.8
== END 2020-01-14 15:09 | disposition home or self-care (01) | DRG 291 ==
LOC: JER 09:00 → JERBED 11:00 → J6WEST-2 21:24 → J7W 01-12 17:01
PROVIDERS: ADMIT Family Medicine; ATTEND Family Medicine
DX: I13.0 Hypertensive heart and chronic kidney disease with heart failure and stage 1 through stage 4 chronic kidney disease, or unspecified chronic kidney disease (principal); I50.33 Acute on chronic diastolic (congestive) heart failure; N17.9 Acute kidney failure, unspecified; Q61.3 Polycystic kidney, unspecified; N18.9 Chronic kidney disease, unspecified; I25.10 Atherosclerotic heart disease of native coronary artery without angina pectoris; E78.5 Hyperlipidemia, unspecified; C44.42 Squamous cell carcinoma of skin of scalp and neck; Z85.72 Personal history of non-Hodgkin lymphomas; Z85.6 Personal history of leukemia; Z95.5 Presence of coronary angioplasty implant and graft; N40.0 Benign prostatic hyperplasia without lower urinary tract symptoms; D72.829 Elevated white blood cell count, unspecified; E11.9 Type 2 diabetes mellitus without complications; K21.9 Gastro-esophageal reflux disease without esophagitis; D72.820 Lymphocytosis (symptomatic)
CPT/HCPCS: 36415; 71046-TC-FY; 76775-TC; 80053; 81003; 82533; 82607; 82728; 82962; 83540; 83550; 83735; 83880; 83993; 84100; 84439; 84443; 85025; 85610; 85651; 86140; 86769; 87040; 87045; 87046; 87086; 87177; 87186; 87205; 87209; 87324; 87449; 87804; 93005; 93010; 93306-TC; 97116-GP; 97161-GP; 99285-25; C9803; J1644; U0003

== ENCOUNTER 2020-01-25 11:28 | Day surgery (SDC) | payer OTHER ==
[2020-01-25 11:22] LABS: BASO % 0.6 % (0-2.0); EOS % 0.6 % (0-4.5); HEMOGLOBIN 9.1 GM/dL (11.7-16.9); LYMPH % 67.4 % (8-40); MCH 34.4 pg (25.7-33.7); MCHC 29.4 g/dl (32.0-35.9); MEAN CELL VOLUME 116.9 fl (80-96); MEAN PLT VOLUME 9.2 fl (7.5-11.1); MONO % 3.3 % (3.8-10.2); NEUT % 28.1 % (42.8-82.8); PLATELET COUNT 148 K/MM3 (134-434); RBC 2.65 M/mm3 (4.00-5.60); RDW 22.5 % (11.9-15.9); WHITE BLOOD COUNT 27.2 K/mm3 (4.0-10.0)
[~2020-01-25 11:28] MED LIST: ACETAMINOPHEN 325 MG TABLET (FP) PO ONE; IGA IVPB ONE; IMMUN GLOB IVPB ONE; PRO IMMUN GLOB IVPB ONE; PRO IVPB ONE
[2020-01-25] MEDS ORDERED: SODIUM CHLORIDE 250 ML IV ONE (12:15)
[2020-01-25 12:47] LABS: BASO % 0.3 % (0-2.0); EOS % 0.6 % (0-4.5); HEMATOCRIT 26.5 % (35.4-49); HEMOGLOBIN 8.5 GM/dL (11.7-16.9); LYMPH % 62.5 % (8-40); MCH 34.8 pg (25.7-33.7); MEAN CELL VOLUME 108.8 fl (80-96); MEAN PLT VOLUME 8.8 fl (7.5-11.1); MONO % 3.5 % (3.8-10.2); NEUT % 33.1 % (42.8-82.8); PLATELET COUNT 120 K/MM3 (134-434); RBC 2.44 M/mm3 (4.00-5.60); RDW 16.6 % (11.9-15.9)
[2020-01-25 12:50] LABS: WHITE BLOOD COUNT 19.3 K/mm3 (4.0-10.0)
[2020-01-25 13:13] LABS: POTASSIUM 4.4 mmol/L (3.5-5.1)
[2020-01-25 13:15] LABS: CALCIUM 10.1 mg/dL (8.5-10.1)
[2020-01-25 13:16] LABS: ALBUMIN 3.4 g/dl (3.4-5.0); BLOOD UREA NITROGEN 48.1 mg/dL (7-18); MAGNESIUM 2.6 mg/dL (1.8-2.4)
[2020-01-25 13:18] LABS: BILIRUBIN,DIRECT 0.2 mg/dL (0.0-0.2); URIC ACID 6.9 mg/dL (2.6-7.2)
[2020-01-25 13:19] LABS: CREATININE 2.5 mg/dL (0.55-1.3)
[2020-01-25 13:20] LABS: BILIRUBIN,TOTAL 0.5 mg/dL (0.2-1)
[2020-01-25 14:18] LABS: ANISOCYTOSIS 2+; MACROCYTOSIS 1+; PLATELET ESTIMATE NORMAL
[2020-01-25 14:54] LABS: ANISOCYTOSIS 1+; MACROCYTOSIS 1+; PLATELET ESTIMATE NORMAL
[2020-01-25 16:54] VITALS: BP 122/59; PULSE 72; TEMP 97.8
[2020-01-28 08:16] LABS: BETA-2-MICROGLOBULIN 11.7 mg/L (0.6-2.4)
== END 2020-01-25 15:25 | disposition home or self-care (01) ==
LOC: JONCCHEMO 11:28
PROVIDERS: ATTEND Internal Medicine Hematology & Oncology
PROC: 3E033GC Introduction of Other Therapeutic Substance into Peripheral Vein, Percutaneous Approach (ICD-10-PCS; principal; 2020-01-25)
PROC: 3E033GC Introduction of Other Therapeutic Substance into Peripheral Vein, Percutaneous Approach (ICD-10-PCS; 2020-01-25)
DX: D80.1 Nonfamilial hypogammaglobulinemia (principal); C91.10 Chronic lymphocytic leukemia of B-cell type not having achieved remission
CPT/HCPCS: 36415; 80048; 80076; 82232; 82784; 83615; 83735; 84550; 85025; 96361; 96365; 96366; J1459

== ENCOUNTER 2020-02-22 08:03 | Day surgery (SDC) | payer BC ==
[2020-02-22] MEDS ORDERED: ACETAMINOPHEN 325 MG TABLET (FP) PO ONE (09:30)
[2020-02-22] MEDS ORDERED: PRO IMMUN GLOB IVPB ONE (10:00)
[2020-02-22] MEDS ORDERED: IMMUN GLOB IVPB ONE (10:00)
[2020-02-22] MEDS ORDERED: PRO IVPB ONE (10:00)
[2020-02-22] MEDS ORDERED: IGA IVPB ONE (10:00)
[2020-02-22] MEDS ORDERED: POTASSIUM CHLORIDE IVPB ONE (11:30)
[2020-02-22] MEDS ORDERED: MAGNESIUM SULFATE IVPB ONE (11:30)
[2020-02-22] MEDS ORDERED: SODIUM CHLORIDE IVPB ONE (11:30)
[2020-02-22 12:43] LABS: BASO % 0.5 % (0-2.0); EOS % 0.8 % (0-4.5); HEMATOCRIT 28.9 % (35.4-49); HEMOGLOBIN 9.3 GM/dL (11.7-16.9); LYMPH % 74.2 % (8-40); MCH 35.2 pg (25.7-33.7); MCHC 32.1 g/dl (32.0-35.9); MEAN CELL VOLUME 109.5 fl (80-96); MEAN PLT VOLUME 9.6 fl (7.5-11.1); MONO % 3.7 % (3.8-10.2); NEUT % 20.8 % (42.8-82.8); PLATELET COUNT 116 K/MM3 (134-434); RBC 2.64 M/mm3 (4.00-5.60); RDW 16.4 % (11.9-15.9); WHITE BLOOD COUNT 24.1 K/mm3 (4.0-10.0)
[2020-02-22] MEDS ORDERED: SODIUM CHLORIDE 250 ML IV ONE (13:00)
[2020-02-22 13:09] LABS: CALCIUM 10.8 mg/dL (8.5-10.1); MAGNESIUM 2.7 mg/dL (1.8-2.4)
[2020-02-22 13:10] LABS: ALBUMIN 3.5 g/dl (3.4-5.0); BLOOD UREA NITROGEN 63.8 mg/dL (7-18)
[2020-02-22 13:12] LABS: BILIRUBIN,DIRECT 0.2 mg/dL (0.0-0.2); CREATININE 3.2 mg/dL (0.55-1.3); URIC ACID 8.7 mg/dL (2.6-7.2)
[2020-02-22 13:14] LABS: BILIRUBIN,TOTAL 0.5 mg/dL (0.2-1); TOT PROT 6.2 g/dl (6.4-8.2)
[2020-02-22 14:40] LABS: ANISOCYTOSIS 1+; MACROCYTOSIS 0; PLATELET ESTIMATE DECREASED
[2020-02-22 16:12] VITALS: PULSE 71; TEMP 97.5
[2020-02-22 16:14] VITALS: BP 100/41
[2020-02-23 14:18] LABS: IGA IMMUNOGLOBULIN 27 mg/dL (61-437); IGG QN IMMUNOGLOBULIN 772 mg/dL (603-1613); IGM QN SERUM 9 mg/dL (15-143)
== END 2020-02-22 16:16 | disposition home or self-care (01) ==
LOC: JONCCHEMO 08:03
PROVIDERS: ATTEND Internal Medicine Hematology & Oncology
PROC: 3E033GC Introduction of Other Therapeutic Substance into Peripheral Vein, Percutaneous Approach (ICD-10-PCS; principal; 2020-02-22)
PROC: 3E033GC Introduction of Other Therapeutic Substance into Peripheral Vein, Percutaneous Approach (ICD-10-PCS; 2020-02-22)
DX: D80.1 Nonfamilial hypogammaglobulinemia (principal); C91.10 Chronic lymphocytic leukemia of B-cell type not having achieved remission
CPT/HCPCS: 36415; 80048; 80076; 82232; 82784; 83615; 83735; 84550; 85025; 96361; 96365; 96366; J1459

== ENCOUNTER 2020-03-21 07:30 | Day surgery (SDC) | payer BC ==
[2020-03-21] MEDS ORDERED: ACETAMINOPHEN 325 MG TABLET (FP) PO PRN (09:00)
[2020-03-21] MEDS ORDERED: IGA IVPB ONE (10:30)
[2020-03-21] MEDS ORDERED: PRO IVPB ONE (10:30)
[2020-03-21] MEDS ORDERED: PRO IMMUN GLOB IVPB ONE (10:30)
[2020-03-21] MEDS ORDERED: IMMUN GLOB IVPB ONE (10:30)
[2020-03-21 11:00] LABS: BASO % 0.2 % (0-2.0); EOS % 0.6 % (0-4.5); HEMATOCRIT 29.4 % (35.4-49); HEMOGLOBIN 9.6 GM/dL (11.7-16.9); LYMPH % 77.1 % (8-40); MCH 35.7 pg (25.7-33.7); MCHC 32.7 g/dl (32.0-35.9); MEAN CELL VOLUME 109.1 fl (80-96); MEAN PLT VOLUME 8.9 fl (7.5-11.1); MONO % 2.4 % (3.8-10.2); NEUT % 19.7 % (42.8-82.8); PLATELET COUNT 110 K/MM3 (134-434); RBC 2.69 M/mm3 (4.00-5.60); RDW 17.5 % (11.9-15.9)
[2020-03-21 11:04] LABS: WHITE BLOOD COUNT 34.5 K/mm3 (4.0-10.0)
[2020-03-21 11:19] LABS: POTASSIUM 4.3 mmol/L (3.5-5.1)
[2020-03-21 11:23] LABS: MAGNESIUM 2.5 mg/dL (1.8-2.4)
[2020-03-21 11:24] LABS: BLOOD UREA NITROGEN 42.6 mg/dL (7-18); CALCIUM 11.1 mg/dL (8.5-10.1)
[2020-03-21 11:25] LABS: ALBUMIN 3.4 g/dl (3.4-5.0); CREATININE 2.8 mg/dL (0.55-1.3); URIC ACID 6.5 mg/dL (2.6-7.2)
[2020-03-21 11:26] LABS: TOT PROT 6.2 g/dl (6.4-8.2)
[2020-03-21 11:28] LABS: BILIRUBIN,DIRECT 0.1 mg/dL (0.0-0.2)
[2020-03-21 11:29] LABS: BILIRUBIN,TOTAL 0.4 mg/dL (0.2-1)
[2020-03-21 11:50] LABS: N-TERMINAL BNP 676.5 pg/ml (5-450)
[2020-03-21 12:10] LABS: ANISOCYTOSIS 2+; MACROCYTOSIS 0; PLATELET ESTIMATE DECREASED
[2020-03-21] MEDS ORDERED: DENOSUMAB 120 MG/1.7 ML VIAL SQ ONE (13:00)
[2020-03-21] MEDS ORDERED: SODIUM CHLORIDE 250 ML IV ONE (14:00)
[2020-03-21 17:22] VITALS: TEMP 97.7
[2020-03-21 17:23] VITALS: BP 110/47; PULSE 84
[2020-03-23 07:09] LABS: BETA-2-MICROGLOBULIN 16.2 mg/L (0.6-2.4)
== END 2020-03-21 15:45 | disposition home or self-care (01) ==
LOC: JONCCHEMO 07:30
PROVIDERS: ATTEND Internal Medicine Hematology & Oncology
PROC: 3E033GC Introduction of Other Therapeutic Substance into Peripheral Vein, Percutaneous Approach (ICD-10-PCS; principal; 2020-03-21)
PROC: 3E013GC Introduction of Other Therapeutic Substance into Subcutaneous Tissue, Percutaneous Approach (ICD-10-PCS; 2020-03-21)
DX: D80.1 Nonfamilial hypogammaglobulinemia (principal); C91.10 Chronic lymphocytic leukemia of B-cell type not having achieved remission
CPT/HCPCS: 36415; 71046-TC-FY; 80048; 80076; 82232; 82784; 83615; 83735; 83880; 84550; 85025; 96365; 96372; J0897; J1459

== ENCOUNTER 2020-04-18 07:07 | Day surgery (SDC) | payer BC ==
[2020-04-18] MEDS ORDERED: ACETAMINOPHEN 325 MG TABLET (FP) PO PRN (09:30)
[2020-04-18] MEDS ORDERED: IGA IVPB ONE (10:00)
[2020-04-18] MEDS ORDERED: PRO IMMUN GLOB IVPB ONE (10:00)
[2020-04-18] MEDS ORDERED: PRO IVPB ONE (10:00)
[2020-04-18] MEDS ORDERED: IMMUN GLOB IVPB ONE (10:00)
[2020-04-18 12:11] LABS: BASO % 0.3 % (0-2.0); EOS % 0.5 % (0-4.5); HEMATOCRIT 28.5 % (35.4-49); HEMOGLOBIN 9.2 GM/dL (11.7-16.9); LYMPH % 82.7 % (8-40); MCH 35.8 pg (25.7-33.7); MCHC 32.3 g/dl (32.0-35.9); MEAN CELL VOLUME 111.1 fl (80-96); MONO % 2.3 % (3.8-10.2); NEUT % 14.2 % (42.8-82.8); PLATELET COUNT 113 K/MM3 (134-434); RBC 2.57 M/mm3 (4.00-5.60); RDW 18.5 % (11.9-15.9)
[2020-04-18 12:17] LABS: WHITE BLOOD COUNT 51.9 K/mm3 (4.0-10.0)
[2020-04-18 12:24] LABS: CALCIUM 8.7 mg/dL (8.5-10.1); POTASSIUM 3.9 mmol/L (3.5-5.1)
[2020-04-18 12:26] LABS: BLOOD UREA NITROGEN 45.5 mg/dL (7-18); MAGNESIUM 2.4 mg/dL (1.8-2.4)
[2020-04-18 12:27] LABS: ALBUMIN 3.4 g/dl (3.4-5.0)
[2020-04-18 12:28] LABS: URIC ACID 7.3 mg/dL (2.6-7.2)
[2020-04-18 12:29] LABS: BILIRUBIN,DIRECT 0.1 mg/dL (0.0-0.2)
[2020-04-18 12:30] LABS: TOT PROT 6.2 g/dl (6.4-8.2)
[2020-04-18 12:32] LABS: BILIRUBIN,TOTAL 0.5 mg/dL (0.2-1)
[2020-04-18] MEDS ORDERED: SODIUM CHLORIDE 250 ML IV ONE (13:00)
[2020-04-18 14:25] LABS: ANISOCYTOSIS 1+; MACROCYTOSIS 0; PLATELET ESTIMATE DECREASED
[2020-04-18 15:21] VITALS: TEMP 97.5
[2020-04-18 15:48] VITALS: BP 125/59; PULSE 68
[2020-04-19 08:06] LABS: IGA IMMUNOGLOBULIN 21 mg/dL (61-437); IGG QN IMMUNOGLOBULIN 734 mg/dL (603-1613); IGM QN SERUM 6 mg/dL (15-143)
== END 2020-04-18 15:00 | disposition home or self-care (01) ==
LOC: JONCCHEMO 07:07
PROVIDERS: ATTEND Internal Medicine Hematology & Oncology
PROC: 3E033GC Introduction of Other Therapeutic Substance into Peripheral Vein, Percutaneous Approach (ICD-10-PCS; principal; 2020-04-18)
PROC: 3E033GC Introduction of Other Therapeutic Substance into Peripheral Vein, Percutaneous Approach (ICD-10-PCS; 2020-04-18)
DX: D80.1 Nonfamilial hypogammaglobulinemia (principal); C91.10 Chronic lymphocytic leukemia of B-cell type not having achieved remission
CPT/HCPCS: 36415; 80048; 80076; 82784; 83615; 83735; 84550; 85025; 96361; 96365; 96366; J1459

== ENCOUNTER 2020-04-29 21:27 | Inpatient (IN) | payer BC ==
[2020-04-30 00:45] LABS: BASO % 0.1 % (0-2.0); EOS % 0.5 % (0-4.5); HEMATOCRIT 28.2 % (35.4-49); HEMOGLOBIN 8.6 GM/dL (11.7-16.9); LYMPH % 81.7 % (8-40); MCH 34.6 pg (25.7-33.7); MCHC 30.5 g/dl (32.0-35.9); MEAN CELL VOLUME 113.2 fl (80-96); MEAN PLT VOLUME 9.3 fl (7.5-11.1); MONO % 2.8 % (3.8-10.2); NEUT % 14.9 % (42.8-82.8); PLATELET COUNT 110 K/MM3 (134-434); RDW 18.3 % (11.9-15.9)
[2020-04-30 00:54] LABS: INR 1.15 (0.83-1.09); PROTHROMBIN TIME (PATIENT) 14.1 SEC (9.7-13.0); WHITE BLOOD COUNT 50.5 K/mm3 (4.0-10.0)
[2020-04-30 00:57] LABS: ACTIVATED PTT 25.6 SECONDS (25.2-36.5); VENOUS BASE EXCESS -5.4 mmol/L (-2-2); VENOUS O2 SATURATION 34.6 % (70-80); VENOUS PCO2 38.9 mmHg (38-52); VENOUS PH 7.33 (7.310-7.410)
[2020-04-30 01:03] LABS: CALCIUM 9.3 mg/dL (8.5-10.1)
[2020-04-30 01:04] LABS: ALBUMIN 3.2 g/dl (3.4-5.0); BLOOD UREA NITROGEN 49.8 mg/dL (7-18); MAGNESIUM 2.5 mg/dL (1.8-2.4)
[2020-04-30 01:07] LABS: CREATININE 2.7 mg/dL (0.55-1.3)
[2020-04-30 01:09] LABS: BILIRUBIN,TOTAL 0.4 mg/dL (0.2-1); TOT PROT 6.1 g/dl (6.4-8.2)
[2020-04-30 01:13] LABS: N-TERMINAL BNP 1177.7 pg/ml (5-450)
[2020-04-30 01:35] LABS: ANISOCYTOSIS 1+; MACROCYTOSIS 1+; PLATELET ESTIMATE DECREASED
[2020-04-30] MEDS ORDERED: rOPINIRole HCL 0.5 MG TABLET PO ONE ×2 (02:04→21:50)
[2020-04-30] MEDS ORDERED: ENOXAPARIN NA (PORCINE) 40 MG/0.4 ML DISP.SYRIN SQ ONE (04:44)
[2020-04-30] MEDS ORDERED: ENOXAPARIN NA (PORCINE) 80 MG/0.8 ML DISP.SYRIN SQ ONE (04:49)
[2020-04-30] MEDS: FUROSEMIDE 40 MG/4 ML INJECTABLE VIAL IVPUSH SCH (11:58)
[2020-04-30] MEDS: INSULIN SLIDING SCALE (NOVOLOG) 1 VIAL SQ SCH ×2 (12:10→22:38)
[2020-04-30] MEDS ORDERED: POTASSIUM CHLORIDE TABS 20 MEQ TABLET.ER (FP) PO ONE (14:34)
[2020-04-30] MEDS ORDERED: FUROSEMIDE 40 MG/4 ML INJECTABLE VIAL IVPUSH ONE (16:00)
[2020-04-30 17:05] LABS: CALCIUM 9.4 mg/dL (8.5-10.1)
[2020-04-30 17:06] LABS: BLOOD UREA NITROGEN 48.8 mg/dL (7-18)
[2020-04-30 17:11] LABS: CREATININE 2.6 mg/dL (0.55-1.3)
[2020-04-30] MEDS: HEPARIN NA (PORCINE) 5,000 UNITS/ML 1ML VIAL SQ SCH (21:11)
[2020-04-30] MEDS: ATORVASTATIN CA 10 MG TABLET (FP) PO SCH (21:11)
[2020-04-30] MEDS: FOLIC ACID 1 MG TABLET (FP) PO SCH (21:11)
[2020-04-30] MEDS ORDERED: oxyCODONE HCL 5 MG TABLET PO SCH (22:00)
[2020-04-30] MEDS: ASPIRIN 81 MG CHEWABLE TABLETS PO SCH (22:37)
[2020-05-01] MEDS ORDERED: MELATONIN 5 MG TABLETS PO ONE ×2 (00:48→21:00)
[2020-05-01] MEDS: INSULIN SLIDING SCALE (NOVOLOG) 1 VIAL SQ SCH ×3 (06:08→17:14)
[2020-05-01 07:57] LABS: BASO % 0.3 % (0-2.0); EOS % 0.5 % (0-4.5); HEMATOCRIT 25.9 % (35.4-49); HEMOGLOBIN 8.2 GM/dL (11.7-16.9); LYMPH % 84.1 % (8-40); MCH 35.6 pg (25.7-33.7); MCHC 31.6 g/dl (32.0-35.9); MEAN CELL VOLUME 112.6 fl (80-96); MEAN PLT VOLUME 9.6 fl (7.5-11.1); MONO % 2.1 % (3.8-10.2); PLATELET COUNT 98 K/MM3 (134-434); RDW 18.7 % (11.9-15.9)
[2020-05-01 08:31] LABS: CALCIUM 9.2 mg/dL (8.5-10.1)
[2020-05-01 08:32] LABS: BLOOD UREA NITROGEN 52.6 mg/dL (7-18); MAGNESIUM 2.3 mg/dL (1.8-2.4)
[2020-05-01 08:35] LABS: CREATININE 2.8 mg/dL (0.55-1.3)
[2020-05-01 08:36] LABS: BILIRUBIN,TOTAL 0.9 mg/dL (0.2-1); N-TERMINAL BNP 2399.8 pg/ml (5-450); TOT PROT 5.6 g/dl (6.4-8.2)
[2020-05-01] MEDS ORDERED: FISH OIL PO SCH (10:00)
[2020-05-01] MEDS ORDERED: FATTY ACIDS PO SCH (10:00)
[2020-05-01] MEDS ORDERED: [UNRECOGNIZED DRUG - OTHER] PO SCH (10:00)
[2020-05-01] MEDS ORDERED: OMEGA PO SCH (10:00)
[2020-05-01 10:10] LABS: WHITE BLOOD COUNT 47.7 K/mm3 (4.0-10.0)
[2020-05-01] MEDS: ALLOPURINOL 100 MG TABLET (FP) PO SCH (10:16)
[2020-05-01] MEDS: INSULIN (LEVEMIR) 100 UNITS/ML UNITS SQ SCH (10:16)
[2020-05-01] MEDS: valACYclovir HCL 500 MG TABLET (FP) PO SCH (10:16)
[2020-05-01] MEDS: HEPARIN NA (PORCINE) 5,000 UNITS/ML 1ML VIAL SQ SCH ×2 (10:16→21:47)
[2020-05-01] MEDS: OMEGA-3 ACID ETHYL ESTERS (FATTY-ACIDS) 1 GM CAPSULE (FP) PO SCH (10:16)
[2020-05-01] MEDS: FUROSEMIDE 40 MG/4 ML INJECTABLE VIAL IVPUSH SCH (10:17)
[2020-05-01 12:32] LABS: ANISOCYTOSIS 2+; MACROCYTOSIS 2+
[2020-05-01] MEDS ORDERED: FUROSEMIDE 40 MG/4 ML INJECTABLE VIAL IVPUSH ONE (14:00)
[2020-05-01] MEDS: POTASSIUM CHLORIDE TABS 20 MEQ TABLET.ER (FP) PO SCH (14:44)
[2020-05-01] MEDS: FOLIC ACID 1 MG TABLET (FP) PO SCH (21:48)
[2020-05-01] MEDS: ATORVASTATIN CA 10 MG TABLET (FP) PO SCH (21:48)
[2020-05-01] MEDS: ASPIRIN 81 MG CHEWABLE TABLETS PO SCH (21:48)
[2020-05-01] MEDS: rOPINIRole HCL 0.5 MG TABLET PO SCH (21:48)
[2020-05-01] MEDS ORDERED: oxyCODONE HCL 5 MG TABLET PO PRN (22:00)
[2020-05-02 07:31] LABS: HEMATOCRIT 25.9 % (35.4-49); HEMOGLOBIN 8.5 GM/dL (11.7-16.9); MCH 36.2 pg (25.7-33.7); MCHC 32.7 g/dl (32.0-35.9); MEAN CELL VOLUME 110.8 fl (80-96); MEAN PLT VOLUME 8.7 fl (7.5-11.1); PLATELET COUNT 100 K/MM3 (134-434); RBC 2.34 M/mm3 (4.00-5.60); RDW 18.1 % (11.9-15.9)
[2020-05-02] MEDS: INSULIN SLIDING SCALE (NOVOLOG) 1 VIAL SQ SCH ×4 (08:00→21:41)
[2020-05-02 08:03] LABS: CALCIUM 9.1 mg/dL (8.5-10.1)
[2020-05-02 08:04] LABS: ALBUMIN 3.1 g/dl (3.4-5.0); BLOOD UREA NITROGEN 54.8 mg/dL (7-18); MAGNESIUM 2.4 mg/dL (1.8-2.4)
[2020-05-02 08:08] LABS: PHOSPHOROUS 3.5 mg/dL (2.5-4.9)
[2020-05-02 08:09] LABS: BILIRUBIN,TOTAL 0.6 mg/dL (0.2-1); TOT PROT 5.9 g/dl (6.4-8.2)
[2020-05-02 08:50] LABS: WHITE BLOOD COUNT 50.1 K/mm3 (4.0-10.0)
[2020-05-02] MEDS: INSULIN (LEVEMIR) 100 UNITS/ML UNITS SQ SCH (09:20)
[2020-05-02] MEDS: ALLOPURINOL 100 MG TABLET (FP) PO SCH (10:02)
[2020-05-02] MEDS: valACYclovir HCL 500 MG TABLET (FP) PO SCH (10:02)
[2020-05-02] MEDS: POTASSIUM CHLORIDE TABS 20 MEQ TABLET.ER (FP) PO SCH (10:02)
[2020-05-02] MEDS: FUROSEMIDE 40 MG/4 ML INJECTABLE VIAL IVPUSH SCH (10:03)
[2020-05-02] MEDS: OMEGA-3 ACID ETHYL ESTERS (FATTY-ACIDS) 1 GM CAPSULE (FP) PO SCH (10:03)
[2020-05-02] MEDS: HEPARIN NA (PORCINE) 5,000 UNITS/ML 1ML VIAL SQ SCH ×2 (10:03→10:13)
[2020-05-02] MEDS: BACITRACIN 15 GM TUBE TOPICAL OINTMENT TP SCH (17:57)
[2020-05-02] MEDS: LEVOTHYROXINE NA 25 MCG TABLET (FP) PO SCH (17:58)
[2020-05-02] MEDS: AMINO ACIDS/PROTEIN HYDROLYS 30 ML LIQUID.PKT PO SCH (17:58)
[2020-05-02] MEDS: ACETAMINOPHEN 325 MG TABLET (FP) PO PRN (19:08)
[2020-05-02 19:33] LABS: BODY FLUID MACROPHAGES 5 %
[2020-05-02] MEDS: ATORVASTATIN CA 10 MG TABLET (FP) PO SCH (21:11)
[2020-05-02] MEDS: traZODone HCL 50 MG TABLET (FP) PO SCH (21:11)
[2020-05-02] MEDS: FOLIC ACID 1 MG TABLET (FP) PO SCH (21:11)
[2020-05-02] MEDS: ASPIRIN 81 MG CHEWABLE TABLETS PO SCH (21:11)
[2020-05-02] MEDS: rOPINIRole HCL 0.5 MG TABLET PO SCH (21:12)
[2020-05-03] MEDS: LEVOTHYROXINE NA 25 MCG TABLET (FP) PO SCH (06:34)
[2020-05-03] MEDS: INSULIN SLIDING SCALE (NOVOLOG) 1 VIAL SQ SCH ×4 (06:35→21:22)
[2020-05-03 09:02] LABS: BASO % 0.3 % (0-2.0); EOS % 0.3 % (0-4.5); HEMATOCRIT 28.8 % (35.4-49); HEMOGLOBIN 9.2 GM/dL (11.7-16.9); LYMPH % 84.8 % (8-40); MCH 35.7 pg (25.7-33.7); MCHC 31.7 g/dl (32.0-35.9); MEAN CELL VOLUME 112.4 fl (80-96); MEAN PLT VOLUME 8.9 fl (7.5-11.1); MONO % 2.3 % (3.8-10.2); NEUT % 12.3 % (42.8-82.8); PLATELET COUNT 105 K/MM3 (134-434); RBC 2.57 M/mm3 (4.00-5.60); RDW 18.2 % (11.9-15.9)
[2020-05-03] MEDS: OMEGA-3 ACID ETHYL ESTERS (FATTY-ACIDS) 1 GM CAPSULE (FP) PO SCH (09:03)
[2020-05-03] MEDS: POTASSIUM CHLORIDE TABS 20 MEQ TABLET.ER (FP) PO SCH (09:04)
[2020-05-03] MEDS: BACITRACIN 15 GM TUBE TOPICAL OINTMENT TP SCH (09:04)
[2020-05-03] MEDS: valACYclovir HCL 500 MG TABLET (FP) PO SCH (09:04)
[2020-05-03] MEDS: AMINO ACIDS/PROTEIN HYDROLYS 30 ML LIQUID.PKT PO SCH ×2 (09:04→17:15)
[2020-05-03] MEDS: FUROSEMIDE 40 MG/4 ML INJECTABLE VIAL IVPUSH SCH (09:05)
[2020-05-03] MEDS: ALLOPURINOL 100 MG TABLET (FP) PO SCH (09:05)
[2020-05-03] MEDS: INSULIN (LEVEMIR) 100 UNITS/ML UNITS SQ SCH (09:05)
[2020-05-03] MEDS: ACETAMINOPHEN 325 MG TABLET (FP) PO PRN (09:07)
[2020-05-03 09:19] LABS: BLOOD UREA NITROGEN 62.9 mg/dL (7-18); CALCIUM 9.3 mg/dL (8.5-10.1)
[2020-05-03] MEDS ORDERED: PT OWN MED DRAWER 7, Y5N ONE (09:23)
[2020-05-03] MEDS ORDERED: INSULIN (LEVEMIR) 100 UNITS/ML UNITS SQ ONE (09:24)
[2020-05-03 10:29] LABS: WHITE BLOOD COUNT 58.8 K/mm3 (4.0-10.0)
[2020-05-03 12:25] LABS: ANISOCYTOSIS 1+; MACROCYTOSIS 0; PLATELET ESTIMATE DECREASED
[2020-05-03] MEDS ORDERED: INSULIN (NOVOLOG) ASPART 100 UNITS/ML 10ML VIAL ONE (12:43)
[2020-05-03] MEDS: ATORVASTATIN CA 10 MG TABLET (FP) PO SCH (21:21)
[2020-05-03] MEDS: traZODone HCL 50 MG TABLET (FP) PO SCH (21:21)
[2020-05-03] MEDS: ASPIRIN 81 MG CHEWABLE TABLETS PO SCH (21:21)
[2020-05-03] MEDS: rOPINIRole HCL 0.5 MG TABLET PO SCH (21:22)
[2020-05-03] MEDS: FOLIC ACID 1 MG TABLET (FP) PO SCH (21:22)
[2020-05-04] MEDS: LEVOTHYROXINE NA 25 MCG TABLET (FP) PO SCH (06:00)
[2020-05-04] MEDS: INSULIN SLIDING SCALE (NOVOLOG) 1 VIAL SQ SCH ×4 (06:29→21:03)
[2020-05-04 07:40] LABS: BASO % 0.1 % (0-2.0); EOS % 0.7 % (0-4.5); HEMATOCRIT 25.2 % (35.4-49); HEMOGLOBIN 7.9 GM/dL (11.7-16.9); MCH 35.6 pg (25.7-33.7); MCHC 31.3 g/dl (32.0-35.9); MEAN CELL VOLUME 113.6 fl (80-96); MEAN PLT VOLUME 9.1 fl (7.5-11.1); MONO % 2.3 % (3.8-10.2); NEUT % 11.9 % (42.8-82.8); PLATELET COUNT 98 K/MM3 (134-434); RBC 2.22 M/mm3 (4.00-5.60); RDW 18.6 % (11.9-15.9)
[2020-05-04 08:04] LABS: ALBUMIN 2.8 g/dl (3.4-5.0); BLOOD UREA NITROGEN 64.6 mg/dL (7-18)
[2020-05-04 08:06] LABS: BILIRUBIN,TOTAL 0.4 mg/dL (0.2-1); CREATININE 2.9 mg/dL (0.55-1.3)
[2020-05-04 08:07] LABS: TOT PROT 5.2 g/dl (6.4-8.2)
[2020-05-04] MEDS: OMEGA-3 ACID ETHYL ESTERS (FATTY-ACIDS) 1 GM CAPSULE (FP) PO SCH (09:33)
[2020-05-04] MEDS: valACYclovir HCL 500 MG TABLET (FP) PO SCH (09:33)
[2020-05-04] MEDS: POTASSIUM CHLORIDE TABS 20 MEQ TABLET.ER (FP) PO SCH (09:34)
[2020-05-04] MEDS: FUROSEMIDE 40 MG/4 ML INJECTABLE VIAL IVPUSH SCH (09:34)
[2020-05-04] MEDS: BACITRACIN 15 GM TUBE TOPICAL OINTMENT TP SCH (09:34)
[2020-05-04] MEDS: AMINO ACIDS/PROTEIN HYDROLYS 30 ML LIQUID.PKT PO SCH ×2 (09:34→17:21)
[2020-05-04] MEDS: ALLOPURINOL 100 MG TABLET (FP) PO SCH (09:35)
[2020-05-04] MEDS: INSULIN (LEVEMIR) 100 UNITS/ML UNITS SQ SCH (09:35)
[2020-05-04 14:13] LABS: BODY FLUID ALBUMIN 2.3 g/dL (Not Estab.)
[2020-05-04 16:21] LABS: ANISOCYTOSIS 2+; HELMET CELLS 1+; MACROCYTOSIS 2+; PLATELET ESTIMATE DECREASED; TEAR DROP CELLS 1+
[2020-05-04] MEDS ORDERED: PT OWN MED DRAWER 7, Y5N ONE ×2 (17:36→20:56)
[2020-05-04] MEDS ORDERED: rOPINIRole HCL 0.5 MG TABLET PO SCH ×2 (17:37→22:00)
[2020-05-04] MEDS ORDERED: rOPINIRole HCL 0.5 MG TABLET PO ONE (18:27)
[2020-05-04] MEDS: FOLIC ACID 1 MG TABLET (FP) PO SCH (21:03)
[2020-05-04] MEDS: ATORVASTATIN CA 10 MG TABLET (FP) PO SCH (21:03)
[2020-05-04] MEDS: traZODone HCL 50 MG TABLET (FP) PO SCH (21:03)
[2020-05-04] MEDS: ASPIRIN 81 MG CHEWABLE TABLETS PO SCH (21:03)
[2020-05-04] MEDS: rOPINIRole HCL 1 MG TABLET (FP) PO SCH (23:45)
[2020-05-05] MEDS: LEVOTHYROXINE NA 25 MCG TABLET (FP) PO SCH (06:07)
[2020-05-05] MEDS: INSULIN SLIDING SCALE (NOVOLOG) 1 VIAL SQ SCH ×4 (06:07→21:13)
[2020-05-05 07:39] LABS: BASO % 0.2 % (0-2.0); EOS % 0.7 % (0-4.5); HEMOGLOBIN 7.9 GM/dL (11.7-16.9); MCH 35.8 pg (25.7-33.7); MCHC 31.5 g/dl (32.0-35.9); MEAN CELL VOLUME 113.7 fl (80-96); MEAN PLT VOLUME 9.5 fl (7.5-11.1); MONO % 1.6 % (3.8-10.2); NEUT % 12.5 % (42.8-82.8); PLATELET COUNT 101 K/MM3 (134-434); RDW 18.2 % (11.9-15.9)
[2020-05-05 07:57] LABS: ALBUMIN 2.7 g/dl (3.4-5.0); CALCIUM 9.4 mg/dL (8.5-10.1)
[2020-05-05 07:59] LABS: BILIRUBIN,TOTAL 0.4 mg/dL (0.2-1); TOT PROT 5.2 g/dl (6.4-8.2)
[2020-05-05 08:01] LABS: CREATININE 2.5 mg/dL (0.55-1.3)
[2020-05-05] MEDS ORDERED: PT OWN MED DRAWER 7, Y5N ONE (08:48)
[2020-05-05 09:12] LABS: ANISOCYTOSIS 2+; MACROCYTOSIS 0; PLATELET ESTIMATE DECREASED; TARGET CELLS 1+
[2020-05-05] MEDS: BACITRACIN 15 GM TUBE TOPICAL OINTMENT TP SCH ×2 (09:38→21:13)
[2020-05-05] MEDS: POTASSIUM CHLORIDE TABS 20 MEQ TABLET.ER (FP) PO SCH (09:38)
[2020-05-05] MEDS: AMINO ACIDS/PROTEIN HYDROLYS 30 ML LIQUID.PKT PO SCH ×2 (09:38→17:34)
[2020-05-05] MEDS: OMEGA-3 ACID ETHYL ESTERS (FATTY-ACIDS) 1 GM CAPSULE (FP) PO SCH (09:39)
[2020-05-05] MEDS: INSULIN (LEVEMIR) 100 UNITS/ML UNITS SQ SCH (09:39)
[2020-05-05] MEDS: rOPINIRole HCL 0.25 MG TABLET PO SCH ×2 (09:39→15:07)
[2020-05-05] MEDS: FUROSEMIDE 40 MG/4 ML INJECTABLE VIAL IVPUSH SCH (09:39)
[2020-05-05] MEDS: ALLOPURINOL 100 MG TABLET (FP) PO SCH (09:40)
[2020-05-05 09:49] LABS: WHITE BLOOD COUNT 50.4 K/mm3 (4.0-10.0)
[2020-05-05] MEDS: valACYclovir HCL 500 MG TABLET (FP) PO SCH (10:58)
[2020-05-05] MEDS: ASPIRIN 81 MG CHEWABLE TABLETS PO SCH (21:13)
[2020-05-05] MEDS: rOPINIRole HCL 1 MG TABLET (FP) PO SCH (21:13)
[2020-05-05] MEDS: FOLIC ACID 1 MG TABLET (FP) PO SCH (21:13)
[2020-05-05] MEDS: ATORVASTATIN CA 10 MG TABLET (FP) PO SCH (21:13)
[2020-05-05] MEDS: traZODone HCL 50 MG TABLET (FP) PO SCH (21:14)
[2020-05-06] MEDS ORDERED: PT OWN MED DRAWER 7, Y5N ONE ×2 (02:29→21:25)
[2020-05-06] MEDS: INSULIN SLIDING SCALE (NOVOLOG) 1 VIAL SQ SCH ×4 (06:14→21:35)
[2020-05-06] MEDS: FUROSEMIDE 40 MG TABLET (FP) PO SCH ×2 (06:14→14:32)
[2020-05-06] MEDS: LEVOTHYROXINE NA 25 MCG TABLET (FP) PO SCH (06:14)
[2020-05-06 08:00] LABS: HEMATOCRIT 25.9 % (35.4-49); HEMOGLOBIN 8.4 GM/dL (11.7-16.9); MCH 35.8 pg (25.7-33.7); MCHC 32.3 g/dl (32.0-35.9); MEAN CELL VOLUME 110.7 fl (80-96); MEAN PLT VOLUME 9.2 fl (7.5-11.1); PLATELET COUNT 110 K/MM3 (134-434); RBC 2.34 M/mm3 (4.00-5.60); RDW 17.8 % (11.9-15.9)
[2020-05-06 08:15] LABS: WHITE BLOOD COUNT 54.7 K/mm3 (4.0-10.0)
[2020-05-06 08:22] LABS: CALCIUM 9.6 mg/dL (8.5-10.1)
[2020-05-06 08:23] LABS: ALBUMIN 2.8 g/dl (3.4-5.0); BLOOD UREA NITROGEN 62.1 mg/dL (7-18)
[2020-05-06 08:26] LABS: CREATININE 2.6 mg/dL (0.55-1.3)
[2020-05-06 08:28] LABS: BILIRUBIN,TOTAL 0.6 mg/dL (0.2-1); TOT PROT 5.5 g/dl (6.4-8.2)
[2020-05-06] MEDS: valACYclovir HCL 500 MG TABLET (FP) PO SCH (09:37)
[2020-05-06] MEDS: OMEGA-3 ACID ETHYL ESTERS (FATTY-ACIDS) 1 GM CAPSULE (FP) PO SCH (09:37)
[2020-05-06] MEDS: INSULIN (LEVEMIR) 100 UNITS/ML UNITS SQ SCH (09:38)
[2020-05-06] MEDS: AMINO ACIDS/PROTEIN HYDROLYS 30 ML LIQUID.PKT PO SCH ×2 (09:38→16:43)
[2020-05-06] MEDS: ALLOPURINOL 100 MG TABLET (FP) PO SCH (09:38)
[2020-05-06] MEDS: POTASSIUM CHLORIDE TABS 20 MEQ TABLET.ER (FP) PO SCH (09:38)
[2020-05-06] MEDS: rOPINIRole HCL 0.25 MG TABLET PO SCH ×2 (09:38→14:32)
[2020-05-06] MEDS: BACITRACIN 15 GM TUBE TOPICAL OINTMENT TP SCH ×3 (09:38→21:34)
[2020-05-06 12:33] LABS: ANISOCYTOSIS 1+; MACROCYTOSIS 1+; PLATELET ESTIMATE DECREASED
[2020-05-06 13:44] VITALS: BMI 22.6
[2020-05-06] MEDS: ATORVASTATIN CA 10 MG TABLET (FP) PO SCH (21:34)
[2020-05-06] MEDS: ASPIRIN 81 MG CHEWABLE TABLETS PO SCH (21:34)
[2020-05-06] MEDS: traZODone HCL 50 MG TABLET (FP) PO SCH (21:34)
[2020-05-06] MEDS: FOLIC ACID 1 MG TABLET (FP) PO SCH (21:35)
[2020-05-06] MEDS: rOPINIRole HCL 1 MG TABLET (FP) PO SCH (21:35)
[2020-05-07] MEDS: LEVOTHYROXINE NA 25 MCG TABLET (FP) PO SCH (07:08)
[2020-05-07] MEDS: FUROSEMIDE 20 MG TABLET (FP) PO SCH ×2 (07:08→13:54)
[2020-05-07] MEDS: INSULIN SLIDING SCALE (NOVOLOG) 1 VIAL SQ SCH ×4 (07:15→21:23)
[2020-05-07] MEDS ORDERED: PT OWN MED DRAWER 7, Y5N ONE ×5 (08:08→20:48)
[2020-05-07 08:36] LABS: CALCIUM 9.8 mg/dL (8.5-10.1)
[2020-05-07 08:37] LABS: ALBUMIN 2.8 g/dl (3.4-5.0); BLOOD UREA NITROGEN 60.9 mg/dL (7-18)
[2020-05-07 08:40] LABS: CREATININE 2.7 mg/dL (0.55-1.3)
[2020-05-07 08:41] LABS: BILIRUBIN,TOTAL 0.4 mg/dL (0.2-1); TOT PROT 5.5 g/dl (6.4-8.2)
[2020-05-07] MEDS: rOPINIRole HCL 0.25 MG TABLET PO SCH ×2 (08:41→14:11)
[2020-05-07] MEDS: AMINO ACIDS/PROTEIN HYDROLYS 30 ML LIQUID.PKT PO SCH ×2 (08:41→16:43)
[2020-05-07] MEDS: BACITRACIN 15 GM TUBE TOPICAL OINTMENT TP SCH ×3 (09:00→21:23)
[2020-05-07] MEDS: INSULIN (LEVEMIR) 100 UNITS/ML UNITS SQ SCH (09:58)
[2020-05-07] MEDS: OMEGA-3 ACID ETHYL ESTERS (FATTY-ACIDS) 1 GM CAPSULE (FP) PO SCH (09:59)
[2020-05-07] MEDS: POTASSIUM CHLORIDE TABS 20 MEQ TABLET.ER (FP) PO SCH (09:59)
[2020-05-07] MEDS: valACYclovir HCL 500 MG TABLET (FP) PO SCH (10:00)
[2020-05-07] MEDS: ALLOPURINOL 100 MG TABLET (FP) PO SCH (10:00)
[2020-05-07] MEDS ORDERED: INSULIN (NOVOLOG) ASPART 100 UNITS/ML 10ML VIAL ONE (11:26)
[2020-05-07] MEDS: traZODone HCL 50 MG TABLET (FP) PO SCH (21:18)
[2020-05-07] MEDS: ASPIRIN 81 MG CHEWABLE TABLETS PO SCH (21:18)
[2020-05-07] MEDS: rOPINIRole HCL 1 MG TABLET (FP) PO SCH (21:19)
[2020-05-07] MEDS: ATORVASTATIN CA 10 MG TABLET (FP) PO SCH (21:19)
[2020-05-07] MEDS: FOLIC ACID 1 MG TABLET (FP) PO SCH (21:19)
[2020-05-08] MEDS: LEVOTHYROXINE NA 25 MCG TABLET (FP) PO SCH (06:12)
[2020-05-08] MEDS: FUROSEMIDE 20 MG TABLET (FP) PO SCH ×2 (06:12→14:01)
[2020-05-08] MEDS: INSULIN SLIDING SCALE (NOVOLOG) 1 VIAL SQ SCH ×4 (06:13→21:14)
[2020-05-08] MEDS ORDERED: PT OWN MED DRAWER 7, Y5N ONE ×3 (09:24→20:07)
[2020-05-08] MEDS: OMEGA-3 ACID ETHYL ESTERS (FATTY-ACIDS) 1 GM CAPSULE (FP) PO SCH (09:31)
[2020-05-08] MEDS: rOPINIRole HCL 0.25 MG TABLET PO SCH ×2 (09:31→14:01)
[2020-05-08] MEDS: AMINO ACIDS/PROTEIN HYDROLYS 30 ML LIQUID.PKT PO SCH ×2 (09:31→17:32)
[2020-05-08] MEDS: INSULIN (LEVEMIR) 100 UNITS/ML UNITS SQ SCH (09:31)
[2020-05-08] MEDS: valACYclovir HCL 500 MG TABLET (FP) PO SCH (09:31)
[2020-05-08] MEDS: BACITRACIN 15 GM TUBE TOPICAL OINTMENT TP SCH ×3 (09:32→21:05)
[2020-05-08] MEDS: POTASSIUM CHLORIDE TABS 20 MEQ TABLET.ER (FP) PO SCH (09:32)
[2020-05-08 09:33] LABS: CREATININE 2.8 mg/dL (0.55-1.3)
[2020-05-08] MEDS: ALLOPURINOL 100 MG TABLET (FP) PO SCH (09:33)
[2020-05-08 09:35] LABS: BILIRUBIN,TOTAL 0.5 mg/dL (0.2-1); BLOOD UREA NITROGEN 69.8 mg/dL (7-18); TOT PROT 5.8 g/dl (6.4-8.2)
[2020-05-08 09:36] LABS: CALCIUM 9.5 mg/dL (8.5-10.1); URIC ACID 6.5 mg/dL (2.6-7.2)
[2020-05-08] MEDS: ACETAMINOPHEN 325 MG TABLET (FP) PO PRN (14:00)
[2020-05-08] MEDS ORDERED: INSULIN (LEVEMIR) 100 UNITS/ML UNITS SQ ONE (18:30)
[2020-05-08] MEDS ORDERED: INSULIN (NOVOLOG) ASPART 100 UNITS/ML 10ML VIAL ONE (18:30)
[2020-05-08] MEDS: ASPIRIN 81 MG CHEWABLE TABLETS PO SCH (21:04)
[2020-05-08] MEDS: FOLIC ACID 1 MG TABLET (FP) PO SCH (21:05)
[2020-05-08] MEDS: traZODone HCL 50 MG TABLET (FP) PO SCH (21:05)
[2020-05-08] MEDS: ATORVASTATIN CA 10 MG TABLET (FP) PO SCH (21:06)
[2020-05-08] MEDS: rOPINIRole HCL 1 MG TABLET (FP) PO SCH (21:06)
[2020-05-09] MEDS: INSULIN SLIDING SCALE (NOVOLOG) 1 VIAL SQ SCH ×4 (06:01→21:50)
[2020-05-09] MEDS: FUROSEMIDE 20 MG TABLET (FP) PO SCH ×2 (06:31→13:28)
[2020-05-09] MEDS: LEVOTHYROXINE NA 25 MCG TABLET (FP) PO SCH (06:31)
[2020-05-09 08:45] LABS: HEMATOCRIT 24.2 % (35.4-49); HEMOGLOBIN 7.8 GM/dL (11.7-16.9); MCHC 32.2 g/dl (32.0-35.9); MEAN CELL VOLUME 111.9 fl (80-96); MEAN PLT VOLUME 9.2 fl (7.5-11.1); PLATELET COUNT 109 K/MM3 (134-434); RBC 2.17 M/mm3 (4.00-5.60); RDW 17.6 % (11.9-15.9)
[2020-05-09 08:54] LABS: ALBUMIN 2.8 g/dl (3.4-5.0); BLOOD UREA NITROGEN 71.5 mg/dL (7-18); CALCIUM 9.3 mg/dL (8.5-10.1)
[2020-05-09 08:57] LABS: CREATININE 2.8 mg/dL (0.55-1.3)
[2020-05-09 08:59] LABS: BILIRUBIN,TOTAL 0.7 mg/dL (0.2-1); TOT PROT 5.4 g/dl (6.4-8.2)
[2020-05-09 09:01] LABS: WHITE BLOOD COUNT 51.5 K/mm3 (4.0-10.0)
[2020-05-09] MEDS ORDERED: PT OWN MED DRAWER 7, Y5N ONE (09:03)
[2020-05-09] MEDS: rOPINIRole HCL 0.25 MG TABLET PO SCH ×2 (09:31→15:18)
[2020-05-09] MEDS: valACYclovir HCL 500 MG TABLET (FP) PO SCH (09:32)
[2020-05-09] MEDS: POTASSIUM CHLORIDE TABS 20 MEQ TABLET.ER (FP) PO SCH (09:32)
[2020-05-09] MEDS: BACITRACIN 15 GM TUBE TOPICAL OINTMENT TP SCH ×3 (09:33→21:48)
[2020-05-09] MEDS: OMEGA-3 ACID ETHYL ESTERS (FATTY-ACIDS) 1 GM CAPSULE (FP) PO SCH (09:33)
[2020-05-09] MEDS: AMINO ACIDS/PROTEIN HYDROLYS 30 ML LIQUID.PKT PO SCH ×2 (09:33→17:53)
[2020-05-09] MEDS: INSULIN (LEVEMIR) 100 UNITS/ML UNITS SQ SCH (09:33)
[2020-05-09] MEDS: ALLOPURINOL 100 MG TABLET (FP) PO SCH (09:34)
[2020-05-09] MEDS ORDERED: traMADol HCL 50 MG TABLET PO PRN (13:15)
[2020-05-09] MEDS ORDERED: ACETAMINOPHEN 325 MG TABLET (FP) PO PRN (13:16)
[2020-05-09] MEDS: oxyCODONE HCL 5 MG TABLET PO PRN (13:29)
[2020-05-09 16:11] LABS: HEP B CORE AB, TOT Positive (Negative)
[2020-05-09] MEDS: ASPIRIN 81 MG CHEWABLE TABLETS PO SCH (21:46)
[2020-05-09] MEDS: ATORVASTATIN CA 10 MG TABLET (FP) PO SCH (21:47)
[2020-05-09] MEDS: traZODone HCL 50 MG TABLET (FP) PO SCH (21:47)
[2020-05-09] MEDS: FOLIC ACID 1 MG TABLET (FP) PO SCH (21:47)
[2020-05-09] MEDS: rOPINIRole HCL 1 MG TABLET (FP) PO SCH (21:47)
[2020-05-10] MEDS: rOPINIRole HCL 1 MG TABLET (FP) PO SCH ×2 (04:55→22:26)
[2020-05-10] MEDS: FUROSEMIDE 20 MG TABLET (FP) PO SCH ×2 (05:59→13:52)
[2020-05-10] MEDS: LEVOTHYROXINE NA 25 MCG TABLET (FP) PO SCH (05:59)
[2020-05-10] MEDS: INSULIN SLIDING SCALE (NOVOLOG) 1 VIAL SQ SCH ×4 (06:00→23:07)
[2020-05-10 07:44] LABS: ALBUMIN 2.8 g/dl (3.4-5.0); CALCIUM 9.7 mg/dL (8.5-10.1)
[2020-05-10 07:45] LABS: BLOOD UREA NITROGEN 74.2 mg/dL (7-18)
[2020-05-10 07:48] LABS: CREATININE 2.7 mg/dL (0.55-1.3)
[2020-05-10 07:49] LABS: BILIRUBIN,TOTAL 0.4 mg/dL (0.2-1); TOT PROT 5.4 g/dl (6.4-8.2)
[2020-05-10] MEDS ORDERED: PT OWN MED DRAWER 7, Y5N ONE ×2 (09:51→21:51)
[2020-05-10] MEDS: AMINO ACIDS/PROTEIN HYDROLYS 30 ML LIQUID.PKT PO SCH ×2 (10:03→18:45)
[2020-05-10] MEDS: OMEGA-3 ACID ETHYL ESTERS (FATTY-ACIDS) 1 GM CAPSULE (FP) PO SCH (10:04)
[2020-05-10] MEDS: POTASSIUM CHLORIDE TABS 20 MEQ TABLET.ER (FP) PO SCH (10:05)
[2020-05-10] MEDS: ALLOPURINOL 100 MG TABLET (FP) PO SCH (10:05)
[2020-05-10] MEDS: valACYclovir HCL 500 MG TABLET (FP) PO SCH (10:05)
[2020-05-10] MEDS: rOPINIRole HCL 0.25 MG TABLET PO SCH ×2 (10:06→20:07)
[2020-05-10] MEDS: BACITRACIN 15 GM TUBE TOPICAL OINTMENT TP SCH ×2 (10:10)
[2020-05-10] MEDS: INSULIN (LEVEMIR) 100 UNITS/ML UNITS SQ SCH (10:14)
[2020-05-10] MEDS: SILVER SULFADIAZINE 1% TOP CREAM 50 GM JAR TP SCH (13:52)
[2020-05-10] MEDS: oxyCODONE HCL 5 MG TABLET PO PRN (14:06)
[2020-05-10] MEDS: SODIUM CHLORIDE 1,000 ML IV SCH (17:14)
[2020-05-10] MEDS: traZODone HCL 50 MG TABLET (FP) PO SCH (21:47)
[2020-05-10] MEDS: FOLIC ACID 1 MG TABLET (FP) PO SCH (21:47)
[2020-05-10] MEDS: ASPIRIN 81 MG CHEWABLE TABLETS PO SCH (21:47)
[2020-05-10] MEDS: ATORVASTATIN CA 10 MG TABLET (FP) PO SCH (21:47)
[2020-05-11] MEDS: BACITRACIN 15 GM TUBE TOPICAL OINTMENT TP SCH ×3 (01:41→09:41)
[2020-05-11] MEDS ORDERED: PT OWN MED DRAWER 7, Y5N ONE ×3 (03:30→22:21)
[2020-05-11] MEDS: rOPINIRole HCL 1 MG TABLET (FP) PO SCH ×2 (03:56→22:26)
[2020-05-11] MEDS: INSULIN SLIDING SCALE (NOVOLOG) 1 VIAL SQ SCH ×4 (06:15→23:09)
[2020-05-11] MEDS: FUROSEMIDE 20 MG TABLET (FP) PO SCH ×2 (06:16→13:33)
[2020-05-11] MEDS: LEVOTHYROXINE NA 25 MCG TABLET (FP) PO SCH (06:19)
[2020-05-11 07:27] LABS: BASO % 0.3 % (0-2.0); EOS % 0.8 % (0-4.5); HEMATOCRIT 24.6 % (35.4-49); HEMOGLOBIN 7.8 GM/dL (11.7-16.9); LYMPH % 83.7 % (8-40); MCH 35.4 pg (25.7-33.7); MCHC 31.8 g/dl (32.0-35.9); MEAN CELL VOLUME 111.6 fl (80-96); MONO % 2.3 % (3.8-10.2); NEUT % 12.9 % (42.8-82.8); PLATELET COUNT 116 K/MM3 (134-434); RDW 17.3 % (11.9-15.9)
[2020-05-11 07:46] LABS: WHITE BLOOD COUNT 55.2 K/mm3 (4.0-10.0)
[2020-05-11 08:18] LABS: ALBUMIN 2.6 g/dl (3.4-5.0)
[2020-05-11 08:19] LABS: BILIRUBIN,TOTAL 0.4 mg/dL (0.2-1); TOT PROT 5.3 g/dl (6.4-8.2)
[2020-05-11 08:21] LABS: BLOOD UREA NITROGEN 69.9 mg/dL (7-18); CALCIUM 9.3 mg/dL (8.5-10.1); CREATININE 2.8 mg/dL (0.55-1.3); PHOSPHOROUS 3.8 mg/dL (2.5-4.9)
[2020-05-11 08:35] LABS: URIC ACID 6.8 mg/dL (2.6-7.2)
[2020-05-11] MEDS: AMINO ACIDS/PROTEIN HYDROLYS 30 ML LIQUID.PKT PO SCH ×2 (09:39→17:55)
[2020-05-11] MEDS: ALLOPURINOL 100 MG TABLET (FP) PO SCH (09:40)
[2020-05-11] MEDS: rOPINIRole HCL 0.25 MG TABLET PO SCH ×2 (09:40→16:08)
[2020-05-11] MEDS: valACYclovir HCL 500 MG TABLET (FP) PO SCH (09:40)
[2020-05-11] MEDS: OMEGA-3 ACID ETHYL ESTERS (FATTY-ACIDS) 1 GM CAPSULE (FP) PO SCH (09:40)
[2020-05-11] MEDS: INSULIN (LEVEMIR) 100 UNITS/ML UNITS SQ SCH (09:41)
[2020-05-11] MEDS ORDERED: DEXAMETHASONE INJECTION 20 MG, DIPHENHYDRAMINE 25 MG in SODIUM CHLORIDE 100 ML IVPB ONE (10:00)
[2020-05-11] MEDS ORDERED: ACETAMINOPHEN 325 MG TABLET (FP) PO ONE (10:00)
[2020-05-11] MEDS ORDERED: POTASSIUM CHLORIDE TABS 20 MEQ TABLET.ER (FP) PO SCH (10:00)
[2020-05-11] MEDS ORDERED: RITUXIMAB ABBS IVPB ONE (10:30)
[2020-05-11] MEDS ORDERED: SODIUM CHLORIDE IVPB ONE (10:30)
[2020-05-11] MEDS: SODIUM CHLORIDE 1,000 ML IV SCH (11:01)
[2020-05-11 11:08] LABS: ANISOCYTOSIS 0; MACROCYTOSIS 1+; PLATELET ESTIMATE DECREASED
[2020-05-11] MEDS: SILVER SULFADIAZINE 1% TOP CREAM 50 GM JAR TP SCH (13:34)
[2020-05-11] MEDS: oxyCODONE HCL 5 MG TABLET PO PRN (14:18)
[2020-05-11] MEDS: SODIUM CHLORIDE 0.45% 1,000 ML IV SCH (16:09)
[2020-05-11] MEDS: traZODone HCL 50 MG TABLET (FP) PO SCH (22:24)
[2020-05-11] MEDS: ASPIRIN 81 MG CHEWABLE TABLETS PO SCH (22:24)
[2020-05-11] MEDS: FOLIC ACID 1 MG TABLET (FP) PO SCH (22:24)
[2020-05-11] MEDS: ATORVASTATIN CA 10 MG TABLET (FP) PO SCH (22:24)
[2020-05-11] MEDS: SENNOSIDES 8.6MG TABLET (FP) PO SCH (22:26)
[2020-05-12] MEDS: BACITRACIN 15 GM TUBE TOPICAL OINTMENT TP SCH ×4 (01:02→21:43)
[2020-05-12] MEDS: INSULIN (LEVEMIR) 100 UNITS/ML UNITS SQ SCH ×2 (01:03→09:19)
[2020-05-12] MEDS: rOPINIRole HCL 1 MG TABLET (FP) PO SCH ×2 (04:44→21:46)
[2020-05-12] MEDS: oxyCODONE HCL 5 MG TABLET PO SCH ×2 (04:45→09:32)
[2020-05-12] MEDS: LEVOTHYROXINE NA 25 MCG TABLET (FP) PO SCH (06:03)
[2020-05-12] MEDS: INSULIN SLIDING SCALE (NOVOLOG) 1 VIAL SQ SCH ×4 (06:04→21:50)
[2020-05-12] MEDS: FUROSEMIDE 20 MG TABLET (FP) PO SCH ×2 (06:04→16:18)
[2020-05-12] MEDS: SODIUM CHLORIDE 0.45% 1,000 ML IV SCH ×3 (06:10→20:09)
[2020-05-12 07:36] LABS: BASO % 0.1 % (0-2.0); EOS % 0.1 % (0-4.5); HEMATOCRIT 22.3 % (35.4-49); HEMOGLOBIN 7.3 GM/dL (11.7-16.9); LYMPH % 71.1 % (8-40); MCH 35.5 pg (25.7-33.7); MCHC 32.5 g/dl (32.0-35.9); MEAN CELL VOLUME 109.2 fl (80-96); MONO % 1.5 % (3.8-10.2); NEUT % 27.2 % (42.8-82.8); PLATELET COUNT 109 K/MM3 (134-434); RBC 2.04 M/mm3 (4.00-5.60); RDW 17.1 % (11.9-15.9); WHITE BLOOD COUNT 29.1 K/mm3 (4.0-10.0)
[2020-05-12 08:05] LABS: CALCIUM 8.6 mg/dL (8.5-10.1)
[2020-05-12 08:06] LABS: ALBUMIN 2.5 g/dl (3.4-5.0); BLOOD UREA NITROGEN 77.6 mg/dL (7-18)
[2020-05-12 08:08] LABS: URIC ACID 7.8 mg/dL (2.6-7.2)
[2020-05-12 08:09] LABS: CREATININE 2.7 mg/dL (0.55-1.3); PHOSPHOROUS 5.1 mg/dL (2.5-4.9)
[2020-05-12 08:14] LABS: BILIRUBIN,TOTAL 0.3 mg/dL (0.2-1)
[2020-05-12] MEDS: valACYclovir HCL 500 MG TABLET (FP) PO SCH (09:19)
[2020-05-12] MEDS: SENNOSIDES 8.6MG TABLET (FP) PO SCH ×2 (09:19→21:42)
[2020-05-12] MEDS: AMINO ACIDS/PROTEIN HYDROLYS 30 ML LIQUID.PKT PO SCH ×2 (09:21→17:21)
[2020-05-12] MEDS: rOPINIRole HCL 0.25 MG TABLET PO SCH ×2 (09:28→16:17)
[2020-05-12] MEDS: OMEGA-3 ACID ETHYL ESTERS (FATTY-ACIDS) 1 GM CAPSULE (FP) PO SCH (09:30)
[2020-05-12] MEDS: SILVER SULFADIAZINE 1% TOP CREAM 50 GM JAR TP SCH (09:38)
[2020-05-12] MEDS: ALLOPURINOL 100 MG TABLET (FP) PO SCH (09:39)
[2020-05-12 11:59] LABS: MACROCYTOSIS 2+
[2020-05-12] MEDS: ACETAMINOPHEN 325 MG TABLET (FP) PO PRN (16:15)
[2020-05-12] MEDS ORDERED: INSULIN (NOVOLOG) ASPART 100 UNITS/ML 10ML VIAL ONE (16:27)
[2020-05-12] MEDS: ATORVASTATIN CA 10 MG TABLET (FP) PO SCH (21:42)
[2020-05-12] MEDS: ASPIRIN 81 MG CHEWABLE TABLETS PO SCH (21:42)
[2020-05-12] MEDS: FOLIC ACID 1 MG TABLET (FP) PO SCH (21:42)
[2020-05-12] MEDS: traZODone HCL 50 MG TABLET (FP) PO SCH (21:42)
[2020-05-13] MEDS: rOPINIRole HCL 1 MG TABLET (FP) PO SCH (03:44)
[2020-05-13] MEDS: LEVOTHYROXINE NA 25 MCG TABLET (FP) PO SCH (06:04)
[2020-05-13] MEDS: INSULIN SLIDING SCALE (NOVOLOG) 1 VIAL SQ SCH ×4 (06:04→21:01)
[2020-05-13 07:51] LABS: BASO % 0.1 % (0-2.0); EOS % 0.4 % (0-4.5); HEMATOCRIT 23.6 % (35.4-49); HEMOGLOBIN 7.7 GM/dL (11.7-16.9); MCH 36.1 pg (25.7-33.7); MCHC 32.6 g/dl (32.0-35.9); MEAN CELL VOLUME 110.5 fl (80-96); MEAN PLT VOLUME 9.1 fl (7.5-11.1); MONO % 2.4 % (3.8-10.2); NEUT % 18.1 % (42.8-82.8); PLATELET COUNT 126 K/MM3 (134-434); RBC 2.14 M/mm3 (4.00-5.60); RDW 17.4 % (11.9-15.9)
[2020-05-13 08:22] LABS: CALCIUM 8.8 mg/dL (8.5-10.1)
[2020-05-13 08:23] LABS: ALBUMIN 2.6 g/dl (3.4-5.0); BLOOD UREA NITROGEN 85.6 mg/dL (7-18)
[2020-05-13 08:25] LABS: CREATININE 2.9 mg/dL (0.55-1.3); URIC ACID 8.3 mg/dL (2.6-7.2)
[2020-05-13 08:27] LABS: BILIRUBIN,TOTAL 0.4 mg/dL (0.2-1); TOT PROT 5.2 g/dl (6.4-8.2)
[2020-05-13 08:34] LABS: WHITE BLOOD COUNT 42.5 K/mm3 (4.0-10.0)
[2020-05-13] MEDS ORDERED: PT OWN MED DRAWER 7, Y5N ONE ×2 (09:29→15:28)
[2020-05-13] MEDS: SENNOSIDES 8.6MG TABLET (FP) PO SCH ×2 (09:45→21:01)
[2020-05-13] MEDS: BACITRACIN 15 GM TUBE TOPICAL OINTMENT TP SCH ×3 (09:45→21:00)
[2020-05-13] MEDS: OMEGA-3 ACID ETHYL ESTERS (FATTY-ACIDS) 1 GM CAPSULE (FP) PO SCH (09:45)
[2020-05-13] MEDS: rOPINIRole HCL 0.25 MG TABLET PO SCH (09:45)
[2020-05-13] MEDS: valACYclovir HCL 500 MG TABLET (FP) PO SCH (09:45)
[2020-05-13] MEDS: AMINO ACIDS/PROTEIN HYDROLYS 30 ML LIQUID.PKT PO SCH (09:45)
[2020-05-13] MEDS: ALLOPURINOL 100 MG TABLET (FP) PO SCH (09:46)
[2020-05-13] MEDS: INSULIN (LEVEMIR) 100 UNITS/ML UNITS SQ SCH (09:46)
[2020-05-13] MEDS: SILVER SULFADIAZINE 1% TOP CREAM 50 GM JAR TP SCH (09:46)
[2020-05-13] MEDS ORDERED: FUROSEMIDE 40 MG TABLET (FP) PO SCH (10:00)
[2020-05-13] MEDS ORDERED: ENTECAVIR 0.5 MG TABLET PO SCH (10:00)
[2020-05-13 10:41] LABS: ANISOCYTOSIS 1+; MACROCYTOSIS 1+; PLATELET ESTIMATE DECREASED
[2020-05-13] MEDS: oxyCODONE HCL 5 MG TABLET PO PRN (15:29)
[2020-05-13] MEDS: SODIUM CHLORIDE 0.45% 1,000 ML IV SCH ×2 (15:30→21:06)
[2020-05-13] MEDS ORDERED: RASBURICASE 6 MG in SODIUM CHLORIDE 50 ML IVPB ONE (16:00)
[2020-05-13] MEDS ORDERED: INSULIN (NOVOLOG) ASPART 100 UNITS/ML 10ML VIAL ONE (20:53)
[2020-05-13] MEDS: traZODone HCL 50 MG TABLET (FP) PO SCH (21:00)
[2020-05-13] MEDS: FOLIC ACID 1 MG TABLET (FP) PO SCH (21:00)
[2020-05-13] MEDS: ATORVASTATIN CA 10 MG TABLET (FP) PO SCH (21:01)
[2020-05-13] MEDS: rOPINIRole HCL 2 MG TABLET (FP) PO SCH (21:02)
[2020-05-13] MEDS ORDERED: SEVELAMER CARBONATE 800 MG TAB (FP) PO SCH (21:15)
[2020-05-13] MEDS: SEVELAMER CARBONATE 800 MG TAB (FP) PO SCH (21:27)
[2020-05-13] MEDS ORDERED: rOPINIRole HCL 0.25 MG TABLET PO SCH (22:00)
[2020-05-14] MEDS: LEVOTHYROXINE NA 25 MCG TABLET (FP) PO SCH (06:36)
[2020-05-14] MEDS: INSULIN SLIDING SCALE (NOVOLOG) 1 VIAL SQ SCH ×4 (06:38→21:32)
[2020-05-14] MEDS: SODIUM CHLORIDE 0.45% 1,000 ML IV SCH ×2 (06:41→21:33)
[2020-05-14 08:06] LABS: BASO % 0.1 % (0-2.0); EOS % 0.5 % (0-4.5); HEMATOCRIT 22.6 % (35.4-49); HEMOGLOBIN 7.1 GM/dL (11.7-16.9); LYMPH % 81.4 % (8-40); MCH 35.2 pg (25.7-33.7); MCHC 31.7 g/dl (32.0-35.9); MEAN PLT VOLUME 9.3 fl (7.5-11.1); PLATELET COUNT 120 K/MM3 (134-434); RBC 2.03 M/mm3 (4.00-5.60); RDW 17.7 % (11.9-15.9)
[2020-05-14 08:09] LABS: CHLORIDE 104 mmol/L (98-107); SODIUM 137 mmol/L (136-145)
[2020-05-14 08:15] LABS: CALCIUM 8.2 mg/dL (8.5-10.1)
[2020-05-14 08:16] LABS: ALBUMIN 2.8 g/dl (3.4-5.0); ANION GAP 7 MMOL/L (8-16); BLOOD UREA NITROGEN 71.7 mg/dL (7-18); CO2 27 mmol/L (21-32); GLUCOSE,RANDOM 87 mg/dL (74-106)
[2020-05-14 08:19] LABS: CREATININE 2.5 mg/dL (0.55-1.3); PHOSPHOROUS 3.7 mg/dL (2.5-4.9); SGOT/AST 27 U/L (15-37); SGPT/ALT 17 U/L (13-61)
[2020-05-14 08:22] LABS: ALK PHOS 89 U/L (45-117)
[2020-05-14 08:27] LABS: LDH 240 U/L (87-246)
[2020-05-14 08:34] LABS: WHITE BLOOD COUNT 39.1 K/mm3 (4.0-10.0)
[2020-05-14 08:39] LABS: URIC ACID < 0.2 mg/dL (2.6-7.2)
[2020-05-14] MEDS: BACITRACIN 15 GM TUBE TOPICAL OINTMENT TP SCH ×3 (10:08→21:32)
[2020-05-14] MEDS: OMEGA-3 ACID ETHYL ESTERS (FATTY-ACIDS) 1 GM CAPSULE (FP) PO SCH (10:09)
[2020-05-14] MEDS: SENNOSIDES 8.6MG TABLET (FP) PO SCH ×2 (10:09→21:32)
[2020-05-14] MEDS: valACYclovir HCL 500 MG TABLET (FP) PO SCH (10:09)
[2020-05-14] MEDS: SILVER SULFADIAZINE 1% TOP CREAM 50 GM JAR TP SCH (10:09)
[2020-05-14] MEDS: INSULIN (LEVEMIR) 100 UNITS/ML UNITS SQ SCH (10:09)
[2020-05-14] MEDS: rOPINIRole HCL 1 MG TABLET (FP) PO SCH (10:09)
[2020-05-14] MEDS: ALLOPURINOL 100 MG TABLET (FP) PO SCH (10:10)
[2020-05-14] MEDS: SEVELAMER CARBONATE 800 MG TAB (FP) PO SCH (10:10)
[2020-05-14] MEDS ORDERED: INSULIN (NOVOLOG) ASPART 100 UNITS/ML 10ML VIAL ONE (10:21)
[2020-05-14 14:27] LABS: ANISOCYTOSIS 1+; MACROCYTOSIS 2+; PLATELET ESTIMATE DECREASED
[2020-05-14] MEDS ORDERED: PT OWN MED DRAWER 7, Y5N ONE (21:08)
[2020-05-14] MEDS: FOLIC ACID 1 MG TABLET (FP) PO SCH (21:31)
[2020-05-14] MEDS: ATORVASTATIN CA 10 MG TABLET (FP) PO SCH (21:31)
[2020-05-14] MEDS: traZODone HCL 50 MG TABLET (FP) PO SCH (21:32)
[2020-05-14] MEDS: rOPINIRole HCL 2 MG TABLET (FP) PO SCH (21:33)
[2020-05-15] MEDS: LEVOTHYROXINE NA 25 MCG TABLET (FP) PO SCH (06:38)
[2020-05-15] MEDS: INSULIN SLIDING SCALE (NOVOLOG) 1 VIAL SQ SCH ×4 (06:38→21:17)
[2020-05-15] MEDS: INSULIN (LEVEMIR) 100 UNITS/ML UNITS SQ SCH (06:42)
[2020-05-15] MEDS ORDERED: PT OWN MED DRAWER 7, Y5N ONE ×2 (06:57→20:57)
[2020-05-15 08:30] LABS: BASO % 0.1 % (0-2.0); EOS % 0.6 % (0-4.5); HEMATOCRIT 27.6 % (35.4-49); HEMOGLOBIN 8.8 GM/dL (11.7-16.9); LYMPH % 79.2 % (8-40); MCH 34.4 pg (25.7-33.7); MEAN CELL VOLUME 107.5 fl (80-96); MONO % 2.8 % (3.8-10.2); NEUT % 17.3 % (42.8-82.8); RBC 2.57 M/mm3 (4.00-5.60); RDW 21.1 % (11.9-15.9)
[2020-05-15 08:50] LABS: CALCIUM 8.5 mg/dL (8.5-10.1)
[2020-05-15 08:51] LABS: ALBUMIN 2.8 g/dl (3.4-5.0)
[2020-05-15 08:52] LABS: BLOOD UREA NITROGEN 56.4 mg/dL (7-18)
[2020-05-15 08:54] LABS: BILIRUBIN,TOTAL 0.6 mg/dL (0.2-1); TOT PROT 5.2 g/dl (6.4-8.2)
[2020-05-15 08:57] LABS: CREATININE 2.4 mg/dL (0.55-1.3)
[2020-05-15 08:59] LABS: WHITE BLOOD COUNT 46.7 K/mm3 (4.0-10.0)
[2020-05-15 09:38] LABS: EOS % 0.5 % (0-4.5); HEMATOCRIT 26.2 % (35.4-49); HEMOGLOBIN 8.5 GM/dL (11.7-16.9); LYMPH % 80.5 % (8-40); MCH 34.3 pg (25.7-33.7); MCHC 32.4 g/dl (32.0-35.9); MEAN PLT VOLUME 9.1 fl (7.5-11.1); MONO % 2.2 % (3.8-10.2); NEUT % 16.8 % (42.8-82.8); PLATELET COUNT 123 K/MM3 (134-434); RBC 2.47 M/mm3 (4.00-5.60)
[2020-05-15 09:44] LABS: INR 1.2 (0.83-1.09); PROTHROMBIN TIME (PATIENT) 14.7 SEC (9.7-13.0)
[2020-05-15 09:47] LABS: ACTIVATED PTT 23.9 SECONDS (25.2-36.5)
[2020-05-15 09:49] LABS: WHITE BLOOD COUNT 42.4 K/mm3 (4.0-10.0)
[2020-05-15 09:57] LABS: CALCIUM 8.2 mg/dL (8.5-10.1)
[2020-05-15 09:58] LABS: ALBUMIN 2.7 g/dl (3.4-5.0); BLOOD UREA NITROGEN 55.4 mg/dL (7-18)
[2020-05-15 10:01] LABS: CREATININE 2.3 mg/dL (0.55-1.3)
[2020-05-15 10:03] LABS: BILIRUBIN,TOTAL 0.9 mg/dL (0.2-1)
[2020-05-15 10:04] LABS: URIC ACID 0.2 mg/dL (2.6-7.2)
[2020-05-15] MEDS: OMEGA-3 ACID ETHYL ESTERS (FATTY-ACIDS) 1 GM CAPSULE (FP) PO SCH (10:10)
[2020-05-15] MEDS: SILVER SULFADIAZINE 1% TOP CREAM 50 GM JAR TP SCH (10:10)
[2020-05-15] MEDS: SENNOSIDES 8.6MG TABLET (FP) PO SCH ×2 (10:10→21:16)
[2020-05-15] MEDS: rOPINIRole HCL 1 MG TABLET (FP) PO SCH (10:10)
[2020-05-15] MEDS: valACYclovir HCL 500 MG TABLET (FP) PO SCH (10:10)
[2020-05-15] MEDS: ALLOPURINOL 100 MG TABLET (FP) PO SCH (10:11)
[2020-05-15] MEDS: BACITRACIN 15 GM TUBE TOPICAL OINTMENT TP SCH ×3 (10:11→21:13)
[2020-05-15 10:27] LABS: ANISOCYTOSIS 2+; MACROCYTOSIS 2+; OVALOCYTE 1+; TARGET CELLS 1+
[2020-05-15] MEDS ORDERED: FUROSEMIDE 40 MG/4 ML INJECTABLE VIAL IVPUSH ONE ×2 (11:13→16:30)
[2020-05-15 11:19] LABS: PHOSPHOROUS 2.9 mg/dL (2.5-4.9)
[2020-05-15] MEDS ORDERED: ACETAMINOPHEN 325 MG TABLET (FP) PO ONE (12:00)
[2020-05-15] MEDS ORDERED: DEXAMETHASONE SODIUM PHOSPHATE 20 MG, DIPHENHYDRAMINE 25 MG in SODIUM CHLORIDE 100 ML IVPB ONE (12:00)
[2020-05-15 12:07] LABS: ANISOCYTOSIS 1+; MACROCYTOSIS 1+; PLATELET ESTIMATE DECREASED
[2020-05-15] MEDS ORDERED: SODIUM CHLORIDE IVPB ONE (12:30)
[2020-05-15] MEDS ORDERED: RITUXIMAB ABBS IVPB ONE (12:30)
[2020-05-15] MEDS: oxyCODONE HCL 5 MG TABLET PO PRN (16:23)
[2020-05-15] MEDS: SODIUM CHLORIDE 0.45% 1,000 ML IV SCH (16:33)
[2020-05-15] MEDS: traZODone HCL 50 MG TABLET (FP) PO SCH (21:16)
[2020-05-15] MEDS: ATORVASTATIN CA 10 MG TABLET (FP) PO SCH (21:16)
[2020-05-15] MEDS: FOLIC ACID 1 MG TABLET (FP) PO SCH (21:16)
[2020-05-15] MEDS: rOPINIRole HCL 2 MG TABLET (FP) PO SCH (21:17)
[2020-05-16] MEDS: INSULIN SLIDING SCALE (NOVOLOG) 1 VIAL SQ SCH ×4 (06:13→21:21)
[2020-05-16] MEDS: INSULIN (LEVEMIR) 100 UNITS/ML UNITS SQ SCH (06:13)
[2020-05-16] MEDS: LEVOTHYROXINE NA 25 MCG TABLET (FP) PO SCH (06:14)
[2020-05-16 08:49] LABS: BASO % 0.1 % (0-2.0); HEMATOCRIT 27.4 % (35.4-49); HEMOGLOBIN 8.9 GM/dL (11.7-16.9); LYMPH % 68.4 % (8-40); MCH 34.8 pg (25.7-33.7); MCHC 32.6 g/dl (32.0-35.9); MEAN CELL VOLUME 106.7 fl (80-96); MEAN PLT VOLUME 9.2 fl (7.5-11.1); NEUT % 29.5 % (42.8-82.8); PLATELET COUNT 120 K/MM3 (134-434); RBC 2.57 M/mm3 (4.00-5.60); RDW 21.1 % (11.9-15.9); WHITE BLOOD COUNT 27.3 K/mm3 (4.0-10.0)
[2020-05-16] MEDS: OMEGA-3 ACID ETHYL ESTERS (FATTY-ACIDS) 1 GM CAPSULE (FP) PO SCH (09:01)
[2020-05-16] MEDS: valACYclovir HCL 500 MG TABLET (FP) PO SCH (09:02)
[2020-05-16] MEDS: rOPINIRole HCL 1 MG TABLET (FP) PO SCH (09:02)
[2020-05-16] MEDS: SENNOSIDES 8.6MG TABLET (FP) PO SCH ×2 (09:02→21:20)
[2020-05-16] MEDS: ALLOPURINOL 100 MG TABLET (FP) PO SCH (09:02)
[2020-05-16 09:04] LABS: CALCIUM 8.3 mg/dL (8.5-10.1); MAGNESIUM 2.8 mg/dL (1.8-2.4)
[2020-05-16 09:05] LABS: ALBUMIN 2.7 g/dl (3.4-5.0); BLOOD UREA NITROGEN 58.2 mg/dL (7-18)
[2020-05-16 09:06] LABS: CREATININE 2.6 mg/dL (0.55-1.3); URIC ACID 1.7 mg/dL (2.6-7.2)
[2020-05-16] MEDS: BACITRACIN 15 GM TUBE TOPICAL OINTMENT TP SCH ×3 (09:06→21:20)
[2020-05-16] MEDS: SILVER SULFADIAZINE 1% TOP CREAM 50 GM JAR TP SCH (09:06)
[2020-05-16 09:09] LABS: BILIRUBIN,TOTAL 0.4 mg/dL (0.2-1); TOT PROT 5.2 g/dl (6.4-8.2)
[2020-05-16 10:12] LABS: ANISOCYTOSIS 1+; MACROCYTOSIS 1+; PLATELET ESTIMATE DECREASED
[2020-05-16] MEDS: SODIUM CHLORIDE 0.45% 1,000 ML IV SCH (14:19)
[2020-05-16] MEDS: oxyCODONE HCL 5 MG TABLET PO PRN (14:58)
[2020-05-16] MEDS: ACETAMINOPHEN 325 MG TABLET (FP) PO PRN (14:59)
[2020-05-16] MEDS ORDERED: INSULIN (NOVOLOG) ASPART 100 UNITS/ML 10ML VIAL ONE (21:04)
[2020-05-16] MEDS: rOPINIRole HCL 2 MG TABLET (FP) PO SCH (21:20)
[2020-05-16] MEDS: traZODone HCL 50 MG TABLET (FP) PO SCH (21:20)
[2020-05-16] MEDS: FOLIC ACID 1 MG TABLET (FP) PO SCH (21:20)
[2020-05-16] MEDS: ATORVASTATIN CA 10 MG TABLET (FP) PO SCH (21:20)
[2020-05-17] MEDS: LEVOTHYROXINE NA 25 MCG TABLET (FP) PO SCH (06:08)
[2020-05-17] MEDS: SODIUM CHLORIDE 0.45% 1,000 ML IV SCH ×3 (06:08→21:17)
[2020-05-17] MEDS: INSULIN SLIDING SCALE (NOVOLOG) 1 VIAL SQ SCH ×4 (06:09→21:18)
[2020-05-17] MEDS: INSULIN (LEVEMIR) 100 UNITS/ML UNITS SQ SCH (06:09)
[2020-05-17] MEDS ORDERED: PT OWN MED DRAWER 7, Y5N ONE ×2 (09:16→19:24)
[2020-05-17] MEDS: SILVER SULFADIAZINE 1% TOP CREAM 50 GM JAR TP SCH (10:00)
[2020-05-17] MEDS: BACITRACIN 15 GM TUBE TOPICAL OINTMENT TP SCH ×3 (10:00→21:18)
[2020-05-17] MEDS: OMEGA-3 ACID ETHYL ESTERS (FATTY-ACIDS) 1 GM CAPSULE (FP) PO SCH (10:23)
[2020-05-17] MEDS: SENNOSIDES 8.6MG TABLET (FP) PO SCH ×2 (10:24→21:18)
[2020-05-17] MEDS: valACYclovir HCL 500 MG TABLET (FP) PO SCH (10:24)
[2020-05-17] MEDS: rOPINIRole HCL 1 MG TABLET (FP) PO SCH (10:24)
[2020-05-17] MEDS ORDERED: ACETAMINOPHEN 325 MG TABLET (FP) PO ONE (11:00)
[2020-05-17] MEDS ORDERED: DIPHENHYDRAMINE 25 MG in SODIUM CHLORIDE 50 ML IVPB ONE (11:00)
[2020-05-17 11:09] LABS: BASO % 0.2 % (0-2.0); EOS % 0.9 % (0-4.5); HEMATOCRIT 27.8 % (35.4-49); HEMOGLOBIN 9.2 GM/dL (11.7-16.9); LYMPH % 60.6 % (8-40); MCH 35.3 pg (25.7-33.7); MONO % 2.5 % (3.8-10.2); NEUT % 35.8 % (42.8-82.8); PLATELET COUNT 133 K/MM3 (134-434); RDW 21.3 % (11.9-15.9); WHITE BLOOD COUNT 23.3 K/mm3 (4.0-10.0)
[2020-05-17] MEDS ORDERED: RITUXIMAB ABBS IVPB ONE (11:30)
[2020-05-17] MEDS ORDERED: SODIUM CHLORIDE IVPB ONE (11:30)
[2020-05-17 11:39] LABS: ALBUMIN 2.7 g/dl (3.4-5.0); CALCIUM 8.1 mg/dL (8.5-10.1)
[2020-05-17 11:40] LABS: BLOOD UREA NITROGEN 48.9 mg/dL (7-18)
[2020-05-17 11:41] LABS: URIC ACID 2.2 mg/dL (2.6-7.2)
[2020-05-17 11:42] LABS: CREATININE 2.4 mg/dL (0.55-1.3)
[2020-05-17] MEDS ORDERED: INSULIN (NOVOLOG) ASPART 100 UNITS/ML 10ML VIAL ONE (11:42)
[2020-05-17 11:43] LABS: PHOSPHOROUS 2.6 mg/dL (2.5-4.9)
[2020-05-17 11:44] LABS: BILIRUBIN,TOTAL 0.4 mg/dL (0.2-1)
[2020-05-17 11:58] LABS: ANISOCYTOSIS 2+; MACROCYTOSIS 2+; OVALOCYTE 1+; PLATELET ESTIMATE DECREASED
[2020-05-17] MEDS: ALLOPURINOL 100 MG TABLET (FP) PO SCH (12:47)
[2020-05-17] MEDS: oxyCODONE HCL 5 MG TABLET PO PRN (15:56)
[2020-05-17] MEDS ORDERED: FUROSEMIDE 40 MG/4 ML INJECTABLE VIAL IVPUSH ONE (20:15)
[2020-05-17] MEDS: ATORVASTATIN CA 10 MG TABLET (FP) PO SCH (21:17)
[2020-05-17] MEDS: diphenhydrAMINE HCL 25 MG CAPSULE (FP) PO SCH (21:17)
[2020-05-17] MEDS: traZODone HCL 50 MG TABLET (FP) PO SCH (21:17)
[2020-05-17] MEDS: FOLIC ACID 1 MG TABLET (FP) PO SCH (21:18)
[2020-05-17] MEDS: rOPINIRole HCL 2 MG TABLET (FP) PO SCH (21:18)
[2020-05-18] MEDS: LEVOTHYROXINE NA 25 MCG TABLET (FP) PO SCH (06:45)
[2020-05-18] MEDS: INSULIN SLIDING SCALE (NOVOLOG) 1 VIAL SQ SCH ×4 (06:45→21:09)
[2020-05-18] MEDS: INSULIN (LEVEMIR) 100 UNITS/ML UNITS SQ SCH (06:45)
[2020-05-18] MEDS ORDERED: ENTECAVIR 0.5 MG TABLET PO SCH (10:15)
[2020-05-18] MEDS: valACYclovir HCL 500 MG TABLET (FP) PO SCH (11:34)
[2020-05-18] MEDS: OMEGA-3 ACID ETHYL ESTERS (FATTY-ACIDS) 1 GM CAPSULE (FP) PO SCH (11:34)
[2020-05-18] MEDS: SENNOSIDES 8.6MG TABLET (FP) PO SCH ×2 (11:34→21:09)
[2020-05-18] MEDS: rOPINIRole HCL 1 MG TABLET (FP) PO SCH (11:35)
[2020-05-18] MEDS ORDERED: INSULIN (NOVOLOG) ASPART 100 UNITS/ML 10ML VIAL ONE ×2 (11:36→20:39)
[2020-05-18] MEDS: ALLOPURINOL 100 MG TABLET (FP) PO SCH (11:36)
[2020-05-18] MEDS: SODIUM CHLORIDE 0.45% 1,000 ML IV SCH ×3 (11:36→23:20)
[2020-05-18] MEDS: SILVER SULFADIAZINE 1% TOP CREAM 50 GM JAR TP SCH (11:37)
[2020-05-18] MEDS: BACITRACIN 15 GM TUBE TOPICAL OINTMENT TP SCH ×3 (11:37→21:09)
[2020-05-18] MEDS ORDERED: FUROSEMIDE 40 MG/4 ML INJECTABLE VIAL IVPUSH ONE ×2 (13:00→18:45)
[2020-05-18] MEDS: oxyCODONE HCL 5 MG TABLET PO PRN (13:29)
[2020-05-18] MEDS: rOPINIRole HCL 2 MG TABLET (FP) PO SCH (21:09)
[2020-05-18] MEDS: diphenhydrAMINE HCL 25 MG CAPSULE (FP) PO SCH ×2 (21:09→23:21)
[2020-05-18] MEDS: traZODone HCL 50 MG TABLET (FP) PO SCH (21:09)
[2020-05-18] MEDS: ATORVASTATIN CA 10 MG TABLET (FP) PO SCH (21:09)
[2020-05-18] MEDS: FOLIC ACID 1 MG TABLET (FP) PO SCH (21:09)
[2020-05-19] MEDS: oxyCODONE HCL 5 MG TABLET PO PRN ×2 (00:43→15:03)
[2020-05-19] MEDS: INSULIN (LEVEMIR) 100 UNITS/ML UNITS SQ SCH (06:32)
[2020-05-19] MEDS: INSULIN SLIDING SCALE (NOVOLOG) 1 VIAL SQ SCH ×4 (06:33→21:53)
[2020-05-19] MEDS: LEVOTHYROXINE NA 25 MCG TABLET (FP) PO SCH (06:33)
[2020-05-19 08:35] LABS: ALBUMIN 2.8 g/dl (3.4-5.0); BLOOD UREA NITROGEN 41.4 mg/dL (7-18); CALCIUM 8.2 mg/dL (8.5-10.1)
[2020-05-19 08:37] LABS: CREATININE 2.3 mg/dL (0.55-1.3)
[2020-05-19 08:40] LABS: BILIRUBIN,TOTAL 0.7 mg/dL (0.2-1); TOT PROT 4.9 g/dl (6.4-8.2)
[2020-05-19] MEDS ORDERED: PT OWN MED DRAWER 7, Y5N ONE (09:04)
[2020-05-19] MEDS: ALLOPURINOL 100 MG TABLET (FP) PO SCH (09:09)
[2020-05-19] MEDS: ACETAMINOPHEN 325 MG TABLET (FP) PO PRN (09:10)
[2020-05-19] MEDS: SENNOSIDES 8.6MG TABLET (FP) PO SCH ×2 (09:10→21:52)
[2020-05-19] MEDS: OMEGA-3 ACID ETHYL ESTERS (FATTY-ACIDS) 1 GM CAPSULE (FP) PO SCH (09:10)
[2020-05-19] MEDS: valACYclovir HCL 500 MG TABLET (FP) PO SCH (09:14)
[2020-05-19] MEDS: rOPINIRole HCL 1 MG TABLET (FP) PO SCH (09:14)
[2020-05-19] MEDS: BACITRACIN 15 GM TUBE TOPICAL OINTMENT TP SCH ×3 (09:15→21:52)
[2020-05-19 11:29] LABS: URIC ACID 3.2 mg/dL (2.6-7.2)
[2020-05-19] MEDS: SILVER SULFADIAZINE 1% TOP CREAM 50 GM JAR TP SCH ×2 (12:39→16:55)
[2020-05-19 13:42] LABS: BASO % 0.1 % (0-2.0); EOS % 0.5 % (0-4.5); HEMOGLOBIN 9.3 GM/dL (11.7-16.9); LYMPH % 42.4 % (8-40); MCH 34.4 pg (25.7-33.7); MCHC 32.1 g/dl (32.0-35.9); MEAN CELL VOLUME 107.1 fl (80-96); MEAN PLT VOLUME 8.7 fl (7.5-11.1); PLATELET COUNT 140 K/MM3 (134-434); RBC 2.71 M/mm3 (4.00-5.60); RDW 20.9 % (11.9-15.9); WHITE BLOOD COUNT 16.3 K/mm3 (4.0-10.0)
[2020-05-19] MEDS: SODIUM CHLORIDE 0.45% 1,000 ML IV SCH (16:57)
[2020-05-19] MEDS ORDERED: FUROSEMIDE 40 MG/4 ML INJECTABLE VIAL IVPUSH ONE (17:02)
[2020-05-19] MEDS ORDERED: ENTECAVIR 0.5 MG TABLET PO SCH (17:33)
[2020-05-19] MEDS: traZODone HCL 50 MG TABLET (FP) PO SCH (21:52)
[2020-05-19] MEDS: diphenhydrAMINE HCL 25 MG CAPSULE (FP) PO SCH (21:52)
[2020-05-19] MEDS: ATORVASTATIN CA 10 MG TABLET (FP) PO SCH (21:52)
[2020-05-19] MEDS: FOLIC ACID 1 MG TABLET (FP) PO SCH (21:53)
[2020-05-19] MEDS: rOPINIRole HCL 2 MG TABLET (FP) PO SCH (21:53)
[2020-05-20] MEDS: INSULIN (LEVEMIR) 100 UNITS/ML UNITS SQ SCH (06:01)
[2020-05-20] MEDS: LEVOTHYROXINE NA 25 MCG TABLET (FP) PO SCH (06:01)
[2020-05-20] MEDS: INSULIN SLIDING SCALE (NOVOLOG) 1 VIAL SQ SCH ×3 (06:01→16:27)
[2020-05-20 08:16] LABS: HEMATOCRIT 26.9 % (35.4-49); MCH 35.7 pg (25.7-33.7); MCHC 33.6 g/dl (32.0-35.9); MEAN PLT VOLUME 8.3 fl (7.5-11.1); PLATELET COUNT 130 K/MM3 (134-434); RBC 2.53 M/mm3 (4.00-5.60); RDW 21.1 % (11.9-15.9); WHITE BLOOD COUNT 13.6 K/mm3 (4.0-10.0)
[2020-05-20 08:44] LABS: ALBUMIN 2.5 g/dl (3.4-5.0); BLOOD UREA NITROGEN 43.1 mg/dL (7-18); CALCIUM 7.9 mg/dL (8.5-10.1); MAGNESIUM 2.4 mg/dL (1.8-2.4)
[2020-05-20 08:48] LABS: CREATININE 2.3 mg/dL (0.55-1.3)
[2020-05-20 08:49] LABS: BILIRUBIN,TOTAL 0.6 mg/dL (0.2-1); TOT PROT 4.6 g/dl (6.4-8.2)
[2020-05-20] MEDS: BACITRACIN 15 GM TUBE TOPICAL OINTMENT TP SCH ×2 (09:27)
[2020-05-20] MEDS: SENNOSIDES 8.6MG TABLET (FP) PO SCH ×2 (09:28→22:50)
[2020-05-20] MEDS: rOPINIRole HCL 1 MG TABLET (FP) PO SCH (09:30)
[2020-05-20] MEDS: SILVER SULFADIAZINE 1% TOP CREAM 50 GM JAR TP SCH (09:31)
[2020-05-20] MEDS: valACYclovir HCL 500 MG TABLET (FP) PO SCH (09:31)
[2020-05-20] MEDS: ALLOPURINOL 100 MG TABLET (FP) PO SCH (09:31)
[2020-05-20] MEDS: OMEGA-3 ACID ETHYL ESTERS (FATTY-ACIDS) 1 GM CAPSULE (FP) PO SCH (09:31)
[2020-05-20] MEDS: oxyCODONE HCL 5 MG TABLET PO PRN ×2 (10:05→16:05)
[2020-05-20] MEDS: SODIUM CHLORIDE 0.45% 1,000 ML IV SCH (13:22)
[2020-05-20] MEDS ORDERED: PT OWN MED DRAWER 7, Y5N ONE (22:46)
[2020-05-20] MEDS: diphenhydrAMINE HCL 25 MG CAPSULE (FP) PO SCH (22:50)
[2020-05-20] MEDS: ATORVASTATIN CA 10 MG TABLET (FP) PO SCH (22:50)
[2020-05-20] MEDS: FOLIC ACID 1 MG TABLET (FP) PO SCH (22:51)
[2020-05-20] MEDS: traZODone HCL 50 MG TABLET (FP) PO SCH (22:51)
[2020-05-20] MEDS: rOPINIRole HCL 2 MG TABLET (FP) PO SCH (22:52)
[2020-05-21] MEDS: BACITRACIN 15 GM TUBE TOPICAL OINTMENT TP SCH ×4 (00:34→22:24)
[2020-05-21] MEDS: INSULIN (LEVEMIR) 100 UNITS/ML UNITS SQ SCH (06:05)
[2020-05-21] MEDS: INSULIN SLIDING SCALE (NOVOLOG) 1 VIAL SQ SCH ×5 (06:05→22:33)
[2020-05-21] MEDS: LEVOTHYROXINE NA 25 MCG TABLET (FP) PO SCH (06:31)
[2020-05-21] MEDS ORDERED: INSULIN (NOVOLOG) ASPART 100 UNITS/ML 10ML VIAL ONE (08:21)
[2020-05-21] MEDS: valACYclovir HCL 500 MG TABLET (FP) PO SCH (09:00)
[2020-05-21] MEDS: SENNOSIDES 8.6MG TABLET (FP) PO SCH ×2 (09:00→22:19)
[2020-05-21] MEDS: ENTECAVIR 0.5 MG TABLET PO SCH (09:01)
[2020-05-21] MEDS: OMEGA-3 ACID ETHYL ESTERS (FATTY-ACIDS) 1 GM CAPSULE (FP) PO SCH (09:01)
[2020-05-21] MEDS: SILVER SULFADIAZINE 1% TOP CREAM 50 GM JAR TP SCH (09:01)
[2020-05-21] MEDS: rOPINIRole HCL 1 MG TABLET (FP) PO SCH (09:02)
[2020-05-21] MEDS: ALLOPURINOL 100 MG TABLET (FP) PO SCH (09:04)
[2020-05-21] MEDS ORDERED: FUROSEMIDE 40 MG/4 ML INJECTABLE VIAL IVPUSH ONE (11:45)
[2020-05-21] MEDS: oxyCODONE HCL 5 MG TABLET PO PRN (14:24)
[2020-05-21] MEDS: traZODone HCL 50 MG TABLET (FP) PO SCH (22:18)
[2020-05-21] MEDS: diphenhydrAMINE HCL 25 MG CAPSULE (FP) PO SCH (22:18)
[2020-05-21] MEDS: ATORVASTATIN CA 10 MG TABLET (FP) PO SCH (22:19)
[2020-05-21] MEDS: rOPINIRole HCL 2 MG TABLET (FP) PO SCH (22:20)
[2020-05-21] MEDS: FOLIC ACID 1 MG TABLET (FP) PO SCH (22:21)
[2020-05-21] MEDS: POLYETHYLENE GLYCOL 3350 119 GM BTL PO SCH (22:23)
[2020-05-22] MEDS: LEVOTHYROXINE NA 25 MCG TABLET (FP) PO SCH (06:12)
[2020-05-22] MEDS: INSULIN (LEVEMIR) 100 UNITS/ML UNITS SQ SCH (06:16)
[2020-05-22] MEDS: INSULIN SLIDING SCALE (NOVOLOG) 1 VIAL SQ SCH ×4 (06:17→21:42)
[2020-05-22 07:37] LABS: BASO % 0.3 % (0-2.0); EOS % 1.7 % (0-4.5); HEMATOCRIT 26.3 % (35.4-49); HEMOGLOBIN 8.5 GM/dL (11.7-16.9); LYMPH % 63.3 % (8-40); MCH 34.6 pg (25.7-33.7); MCHC 32.4 g/dl (32.0-35.9); MEAN CELL VOLUME 106.7 fl (80-96); MEAN PLT VOLUME 8.5 fl (7.5-11.1); MONO % 3.1 % (3.8-10.2); NEUT % 31.6 % (42.8-82.8); PLATELET COUNT 132 K/MM3 (134-434); RBC 2.47 M/mm3 (4.00-5.60); RDW 20.5 % (11.9-15.9); WHITE BLOOD COUNT 16.1 K/mm3 (4.0-10.0)
[2020-05-22 07:56] LABS: BLOOD UREA NITROGEN 53.8 mg/dL (7-18); CALCIUM 8.3 mg/dL (8.5-10.1)
[2020-05-22 07:59] LABS: CREATININE 2.4 mg/dL (0.55-1.3)
[2020-05-22] MEDS: SENNOSIDES 8.6MG TABLET (FP) PO SCH ×2 (09:09→21:40)
[2020-05-22] MEDS: valACYclovir HCL 500 MG TABLET (FP) PO SCH (09:09)
[2020-05-22] MEDS: OMEGA-3 ACID ETHYL ESTERS (FATTY-ACIDS) 1 GM CAPSULE (FP) PO SCH (09:10)
[2020-05-22] MEDS: rOPINIRole HCL 1 MG TABLET (FP) PO SCH (09:10)
[2020-05-22] MEDS: ALLOPURINOL 100 MG TABLET (FP) PO SCH (09:11)
[2020-05-22] MEDS: POLYETHYLENE GLYCOL 3350 119 GM BTL PO SCH ×2 (09:12→21:41)
[2020-05-22] MEDS: SILVER SULFADIAZINE 1% TOP CREAM 50 GM JAR TP SCH (09:13)
[2020-05-22] MEDS: BACITRACIN 15 GM TUBE TOPICAL OINTMENT TP SCH ×3 (09:13→21:41)
[2020-05-22 09:17] LABS: ANISOCYTOSIS 1+; MACROCYTOSIS 1+; OVALOCYTE 1+; PLATELET ESTIMATE DECREASED
[2020-05-22] MEDS ORDERED: diphenhydrAMINE HCL 25 MG CAPSULE (FP) PO PRN (09:50)
[2020-05-22] MEDS ORDERED: FUROSEMIDE 40 MG/4 ML INJECTABLE VIAL IVPUSH ONE (11:30)
[2020-05-22] MEDS: ASPIRIN COATED 81 MG TABLET.EC PO SCH (11:38)
[2020-05-22] MEDS: rOPINIRole HCL 2 MG TABLET (FP) PO SCH (21:40)
[2020-05-22] MEDS: traZODone HCL 50 MG TABLET (FP) PO SCH (21:41)
[2020-05-22] MEDS: FOLIC ACID 1 MG TABLET (FP) PO SCH (21:41)
[2020-05-22] MEDS: ATORVASTATIN CA 10 MG TABLET (FP) PO SCH (21:41)
[2020-05-23] MEDS: INSULIN (LEVEMIR) 100 UNITS/ML UNITS SQ SCH (06:13)
[2020-05-23] MEDS: INSULIN SLIDING SCALE (NOVOLOG) 1 VIAL SQ SCH ×4 (06:14→21:14)
[2020-05-23] MEDS: LEVOTHYROXINE NA 25 MCG TABLET (FP) PO SCH (06:14)
[2020-05-23] MEDS ORDERED: MAGNESIUM HYDROX 2400MG/30ML ORAL SUSPENSION 30 ML CUP PO PRN (07:59)
[2020-05-23 08:11] LABS: BASO % 0.2 % (0-2.0); EOS % 1.6 % (0-4.5); HEMATOCRIT 24.7 % (35.4-49); HEMOGLOBIN 8.3 GM/dL (11.7-16.9); LYMPH % 69.4 % (8-40); MCH 35.3 pg (25.7-33.7); MCHC 33.7 g/dl (32.0-35.9); MEAN CELL VOLUME 104.7 fl (80-96); MEAN PLT VOLUME 8.5 fl (7.5-11.1); MONO % 2.8 % (3.8-10.2); PLATELET COUNT 131 K/MM3 (134-434); RBC 2.36 M/mm3 (4.00-5.60); RDW 20.3 % (11.9-15.9); WHITE BLOOD COUNT 17.5 K/mm3 (4.0-10.0)
[2020-05-23 08:13] LABS: ALBUMIN 2.2 g/dl (3.4-5.0); BLOOD UREA NITROGEN 50.1 mg/dL (7-18); CALCIUM 8.2 mg/dL (8.5-10.1)
[2020-05-23 08:17] LABS: CREATININE 2.5 mg/dL (0.55-1.3)
[2020-05-23 08:18] LABS: BILIRUBIN,TOTAL 0.6 mg/dL (0.2-1)
[2020-05-23 08:19] LABS: TOT PROT 4.8 g/dl (6.4-8.2)
[2020-05-23] MEDS ORDERED: INSULIN (NOVOLOG) ASPART 100 UNITS/ML 10ML VIAL ONE ×2 (08:39→21:08)
[2020-05-23] MEDS: ASPIRIN COATED 81 MG TABLET.EC PO SCH (09:02)
[2020-05-23] MEDS: OMEGA-3 ACID ETHYL ESTERS (FATTY-ACIDS) 1 GM CAPSULE (FP) PO SCH (09:02)
[2020-05-23] MEDS: SENNOSIDES 8.6MG TABLET (FP) PO SCH ×4 (09:02→21:15)
[2020-05-23] MEDS: valACYclovir HCL 500 MG TABLET (FP) PO SCH (09:02)
[2020-05-23] MEDS: POLYETHYLENE GLYCOL 3350 119 GM BTL PO SCH ×2 (09:03→21:19)
[2020-05-23] MEDS: rOPINIRole HCL 1 MG TABLET (FP) PO SCH (09:03)
[2020-05-23] MEDS: ALLOPURINOL 100 MG TABLET (FP) PO SCH (09:04)
[2020-05-23] MEDS: SILVER SULFADIAZINE 1% TOP CREAM 50 GM JAR TP SCH (09:06)
[2020-05-23] MEDS: BACITRACIN 15 GM TUBE TOPICAL OINTMENT TP SCH ×3 (09:07→21:16)
[2020-05-23 11:31] LABS: ANISOCYTOSIS 1+; MACROCYTOSIS 0; PLATELET ESTIMATE DECREASED; TEAR DROP CELLS 1+
[2020-05-23] MEDS: FUROSEMIDE 40 MG TABLET (FP) PO SCH (15:46)
[2020-05-23] MEDS: traZODone HCL 50 MG TABLET (FP) PO SCH (21:15)
[2020-05-23] MEDS: ATORVASTATIN CA 10 MG TABLET (FP) PO SCH (21:15)
[2020-05-23] MEDS: FOLIC ACID 1 MG TABLET (FP) PO SCH (21:16)
[2020-05-23] MEDS: rOPINIRole HCL 2 MG TABLET (FP) PO SCH (21:17)
[2020-05-24] MEDS: INSULIN (LEVEMIR) 100 UNITS/ML UNITS SQ SCH (05:59)
[2020-05-24] MEDS: INSULIN SLIDING SCALE (NOVOLOG) 1 VIAL SQ SCH ×4 (05:59→21:26)
[2020-05-24] MEDS: LEVOTHYROXINE NA 25 MCG TABLET (FP) PO SCH (05:59)
[2020-05-24] MEDS ORDERED: INSULIN (NOVOLOG) ASPART 100 UNITS/ML 10ML VIAL ONE ×2 (06:20→17:01)
[2020-05-24 07:49] LABS: BASO % 0.3 % (0-2.0); EOS % 1.3 % (0-4.5); HEMATOCRIT 27.3 % (35.4-49); HEMOGLOBIN 8.9 GM/dL (11.7-16.9); LYMPH % 68.6 % (8-40); MCH 34.4 pg (25.7-33.7); MCHC 32.7 g/dl (32.0-35.9); MEAN CELL VOLUME 105.3 fl (80-96); MEAN PLT VOLUME 8.3 fl (7.5-11.1); MONO % 2.8 % (3.8-10.2); PLATELET COUNT 143 K/MM3 (134-434); RDW 20.1 % (11.9-15.9); WHITE BLOOD COUNT 20.8 K/mm3 (4.0-10.0)
[2020-05-24 08:05] LABS: CALCIUM 8.3 mg/dL (8.5-10.1)
[2020-05-24 08:06] LABS: ALBUMIN 2.5 g/dl (3.4-5.0)
[2020-05-24 08:09] LABS: IGA IMMUNOGLOBULIN 17 mg/dL (61-437); IGG QN IMMUNOGLOBULIN 409 mg/dL (603-1613); IGM QN SERUM 5 mg/dL (15-143)
[2020-05-24 08:09] LABS: CREATININE 2.5 mg/dL (0.55-1.3)
[2020-05-24 08:11] LABS: BILIRUBIN,TOTAL 0.4 mg/dL (0.2-1); TOT PROT 4.9 g/dl (6.4-8.2)
[2020-05-24] MEDS: FUROSEMIDE 40 MG TABLET (FP) PO SCH (09:47)
[2020-05-24] MEDS: OMEGA-3 ACID ETHYL ESTERS (FATTY-ACIDS) 1 GM CAPSULE (FP) PO SCH (09:47)
[2020-05-24] MEDS: valACYclovir HCL 500 MG TABLET (FP) PO SCH (09:47)
[2020-05-24] MEDS: ASPIRIN COATED 81 MG TABLET.EC PO SCH (09:47)
[2020-05-24] MEDS: SENNOSIDES 8.6MG TABLET (FP) PO SCH ×2 (09:47→21:21)
[2020-05-24] MEDS: BACITRACIN 15 GM TUBE TOPICAL OINTMENT TP SCH ×3 (09:48→21:20)
[2020-05-24] MEDS: POLYETHYLENE GLYCOL 3350 119 GM BTL PO SCH ×2 (09:49→21:23)
[2020-05-24] MEDS: ENTECAVIR 0.5 MG TABLET PO SCH (09:49)
[2020-05-24] MEDS: rOPINIRole HCL 1 MG TABLET (FP) PO SCH (09:50)
[2020-05-24] MEDS: ALLOPURINOL 100 MG TABLET (FP) PO SCH (09:51)
[2020-05-24] MEDS: SILVER SULFADIAZINE 1% TOP CREAM 50 GM JAR TP SCH (09:53)
[2020-05-24 10:36] LABS: ANISOCYTOSIS 1+; MACROCYTOSIS 1+; PLATELET ESTIMATE DECREASED
[2020-05-24] MEDS: oxyCODONE HCL 5 MG TABLET PO PRN (14:50)
[2020-05-24] MEDS ORDERED: PT OWN MED DRAWER 7, Y5N ONE (21:18)
[2020-05-24] MEDS: ATORVASTATIN CA 10 MG TABLET (FP) PO SCH (21:21)
[2020-05-24] MEDS: traZODone HCL 50 MG TABLET (FP) PO SCH (21:21)
[2020-05-24] MEDS: FOLIC ACID 1 MG TABLET (FP) PO SCH (21:21)
[2020-05-24] MEDS: rOPINIRole HCL 2 MG TABLET (FP) PO SCH (21:22)
[2020-05-25] MEDS: INSULIN SLIDING SCALE (NOVOLOG) 1 VIAL SQ SCH ×4 (06:45→17:14)
[2020-05-25] MEDS: INSULIN (LEVEMIR) 100 UNITS/ML UNITS SQ SCH (06:46)
[2020-05-25] MEDS: LEVOTHYROXINE NA 25 MCG TABLET (FP) PO SCH (06:47)
[2020-05-25 08:05] LABS: BASO % 0.3 % (0-2.0); EOS % 1.2 % (0-4.5); HEMATOCRIT 24.9 % (35.4-49); HEMOGLOBIN 8.2 GM/dL (11.7-16.9); LYMPH % 67.8 % (8-40); MCH 34.8 pg (25.7-33.7); MCHC 33.1 g/dl (32.0-35.9); MEAN PLT VOLUME 8.3 fl (7.5-11.1); MONO % 2.6 % (3.8-10.2); NEUT % 28.1 % (42.8-82.8); PLATELET COUNT 133 K/MM3 (134-434); RBC 2.37 M/mm3 (4.00-5.60); RDW 19.8 % (11.9-15.9); WHITE BLOOD COUNT 19.8 K/mm3 (4.0-10.0)
[2020-05-25 08:27] LABS: CALCIUM 8.4 mg/dL (8.5-10.1)
[2020-05-25 08:28] LABS: ALBUMIN 2.4 g/dl (3.4-5.0); BLOOD UREA NITROGEN 52.5 mg/dL (7-18)
[2020-05-25 08:31] LABS: CREATININE 2.3 mg/dL (0.55-1.3)
[2020-05-25 08:33] LABS: BILIRUBIN,TOTAL 0.4 mg/dL (0.2-1); TOT PROT 4.8 g/dl (6.4-8.2)
[2020-05-25] MEDS: SENNOSIDES 8.6MG TABLET (FP) PO SCH (10:23)
[2020-05-25] MEDS: valACYclovir HCL 500 MG TABLET (FP) PO SCH (10:23)
[2020-05-25] MEDS: FUROSEMIDE 40 MG TABLET (FP) PO SCH (10:23)
[2020-05-25] MEDS: OMEGA-3 ACID ETHYL ESTERS (FATTY-ACIDS) 1 GM CAPSULE (FP) PO SCH (10:23)
[2020-05-25] MEDS: rOPINIRole HCL 1 MG TABLET (FP) PO SCH (10:24)
[2020-05-25] MEDS: ASPIRIN COATED 81 MG TABLET.EC PO SCH (10:24)
[2020-05-25] MEDS: ALLOPURINOL 100 MG TABLET (FP) PO SCH (10:25)
[2020-05-25] MEDS: POLYETHYLENE GLYCOL 3350 119 GM BTL PO SCH (10:26)
[2020-05-25] MEDS: BACITRACIN 15 GM TUBE TOPICAL OINTMENT TP SCH ×2 (10:28)
[2020-05-25] MEDS: SILVER SULFADIAZINE 1% TOP CREAM 50 GM JAR TP SCH (10:28)
[2020-05-25] MEDS ORDERED: SODIUM CHLORIDE 250 ML IV ONE (11:15)
[2020-05-25 13:06] LABS: ANISOCYTOSIS 0; HELMET CELLS 0; HOWELL-JOLLY BODIES 0; MACROCYTOSIS 0; OVALOCYTE 0; PLATELET ESTIMATE DECREASED; ROULEAU 0; SICKELED CELLS 0; TARGET CELLS 0; TEAR DROP CELLS 0; TOXIC GRANULATION 0
[2020-05-25 13:28] VITALS: BP 110/51; PULSE 83
[2020-05-25] MEDS ORDERED: FUROSEMIDE 40 MG TABLET (FP) PO SCH (14:00)
[2020-05-25 18:09] VITALS: TEMP 98.2
== END 2020-05-25 18:21 | disposition home health service (06) | DRG 841 ==
LOC: JER 21:27 → JERBED 04-30 06:15 → J4W 04-30 10:36 → J7W 05-10 12:09
PROVIDERS: ADMIT Internal Medicine; ATTEND Family Medicine
PROC: 0W9B3ZX Drainage of Left Pleural Cavity, Percutaneous Approach, Diagnostic (ICD-10-PCS; 2020-05-02)
PROC: 0W9B3ZX Drainage of Left Pleural Cavity, Percutaneous Approach, Diagnostic (ICD-10-PCS; principal; 2020-05-10)
PROC: 3E03305 Introduction of Other Antineoplastic into Peripheral Vein, Percutaneous Approach (ICD-10-PCS; 2020-05-11)
PROC: 30233N1 Transfusion of Nonautologous Red Blood Cells into Peripheral Vein, Percutaneous Approach (ICD-10-PCS; 2020-05-14)
PROC: 0JH63XZ Insertion of Tunneled Vascular Access Device into Chest Subcutaneous Tissue and Fascia, Percutaneous Approach (ICD-10-PCS; 2020-05-18)
PROC: 0JH63XZ Insertion of Tunneled Vascular Access Device into Chest Subcutaneous Tissue and Fascia, Percutaneous Approach (ICD-10-PCS; 2020-05-19)
DX: C91.10 Chronic lymphocytic leukemia of B-cell type not having achieved remission (principal); J91.0 Malignant pleural effusion; J95.811 Postprocedural pneumothorax; N17.9 Acute kidney failure, unspecified; R18.8 Other ascites; I50.32 Chronic diastolic (congestive) heart failure; I13.0 Hypertensive heart and chronic kidney disease with heart failure and stage 1 through stage 4 chronic kidney disease, or unspecified chronic kidney disease; R64 Cachexia; D63.0 Anemia in neoplastic disease; C44.42 Squamous cell carcinoma of skin of scalp and neck; E11.22 Type 2 diabetes mellitus with diabetic chronic kidney disease; N18.2 Chronic kidney disease, stage 2 (mild); I10 Essential (primary) hypertension; D72.829 Elevated white blood cell count, unspecified; I25.10 Atherosclerotic heart disease of native coronary artery without angina pectoris; E87.70 Fluid overload, unspecified; R59.1 Generalized enlarged lymph nodes; D69.6 Thrombocytopenia, unspecified; Z95.5 Presence of coronary angioplasty implant and graft; E78.5 Hyperlipidemia, unspecified; N28.1 Cyst of kidney, acquired; K21.9 Gastro-esophageal reflux disease without esophagitis; N40.0 Benign prostatic hyperplasia without lower urinary tract symptoms; E11.40 Type 2 diabetes mellitus with diabetic neuropathy, unspecified; G25.81 Restless legs syndrome; Z68.22 Body mass index [BMI] 22.0-22.9, adult; Y83.9 Surgical procedure, unspecified as the cause of abnormal reaction of the patient, or of later complication, without mention of misadventure at the time of the procedure
CPT/HCPCS: 32550; 36415; 36430; 71045-TC-FY; 71046-TC-FY; 71250-TC; 76942; 76942-TC; 80048; 80053; 80061; 82042; 82150; 82465; 82550; 82607; 82728; 82784; 82803; 82945; 82955; 82962; 83036; 83540; 83550; 83605; 83615; 83721; 83735; 83880; 83986; 84100; 84157; 84443; 84478; 84484; 84550; 85025; 85027; 85379; 85384; 85610; 85730; 86704; 86706; 86707; 86708; 86709; 86850; 86900; 86901; 86922; 87070; 87075; 87102; 87116; 87205; 87206; 87210; 87340; 87517; 87804; 88300-TC; 93005; 93010; 93970-TC; 94761; 97116-GP; 97161-GP; 99285-25; C1729; C1769; C1894; C9803; J1100; J1644; P9058; Q5115; U0003

== ENCOUNTER 2020-05-31 07:11 | Day surgery (SDC) | payer BC ==
[2020-05-31] MEDS ORDERED: ACETAMINOPHEN 325 MG TABLET (FP) PO ONE (09:30)
[2020-05-31] MEDS ORDERED: DIPHENHYDRAMINE 25 MG in SODIUM CHLORIDE 50 ML IVPB ONE (09:30)
[2020-05-31] MEDS ORDERED: RITUXIMAB-ABBS 500 MG, RITUXIMAB-ABBS 261 MG in SODIUM CHLORIDE 684.9 ML IVPB ONE (10:00)
[2020-05-31 11:18] LABS: BASO % 0.1 % (0-2.0); EOS % 0.4 % (0-4.5); HEMATOCRIT 27.8 % (35.4-49); HEMOGLOBIN 8.4 GM/dL (11.7-16.9); LYMPH % 87.8 % (8-40); MCH 33.5 pg (25.7-33.7); MCHC 30.3 g/dl (32.0-35.9); MEAN CELL VOLUME 110.6 fl (80-96); MEAN PLT VOLUME 8.9 fl (7.5-11.1); MONO % 1.5 % (3.8-10.2); NEUT % 10.2 % (42.8-82.8); PLATELET COUNT 169 K/MM3 (134-434); RBC 2.52 M/mm3 (4.00-5.60); RDW 20.1 % (11.9-15.9)
[2020-05-31 11:36] LABS: ALBUMIN 2.7 g/dl (3.4-5.0); BLOOD UREA NITROGEN 59.2 mg/dL (7-18); CALCIUM 7.7 mg/dL (8.5-10.1); MAGNESIUM 2.5 mg/dL (1.8-2.4)
[2020-05-31 11:39] LABS: BILIRUBIN,DIRECT 0.1 mg/dL (0.0-0.2); CREATININE 2.1 mg/dL (0.55-1.3)
[2020-05-31 11:41] LABS: BILIRUBIN,TOTAL 0.5 mg/dL (0.2-1); TOT PROT 5.2 g/dl (6.4-8.2)
[2020-05-31 12:28] LABS: ANISOCYTOSIS 0; HELMET CELLS 0; HOWELL-JOLLY BODIES 0; MACROCYTOSIS 0; OVALOCYTE 0; PLATELET ESTIMATE NORMAL; ROULEAU 0; SICKELED CELLS 0; TARGET CELLS 0; TEAR DROP CELLS 0; TOXIC GRANULATION 0
[2020-05-31 17:49] VITALS: TEMP 97.8
[2020-05-31 17:50] VITALS: BP 121/50; PULSE 71
== END 2020-05-31 17:15 | disposition home or self-care (01) ==
LOC: JONCCHEMO 07:11
PROVIDERS: ATTEND Internal Medicine Hematology & Oncology
DX: Z51.11 Encounter for antineoplastic chemotherapy (principal); C91.90 Lymphoid leukemia, unspecified not having achieved remission; D80.1 Nonfamilial hypogammaglobulinemia
CPT/HCPCS: 36415; 80048; 80076; 83735; 85025; 96367; 96413; 96415; Q5115

== ENCOUNTER 2020-06-01 07:00 | Day surgery (SDC) | payer BC ==
[2020-06-01] MEDS ORDERED: RASBURICASE 6 MG in SODIUM CHLORIDE 50 ML IVPB ONE (10:00)
[2020-06-01] MEDS ORDERED: SODIUM CHLORIDE 0.45% 500 ML IV ONE (12:30)
[2020-06-01 17:13] LABS: BLOOD UREA NITROGEN 49.4 mg/dL (7-18); CALCIUM 7.2 mg/dL (8.5-10.1)
[2020-06-01 17:16] LABS: CREATININE 1.9 mg/dL (0.55-1.3); URIC ACID 6.9 mg/dL (2.6-7.2)
[2020-06-01 17:17] LABS: PHOSPHOROUS 4.8 mg/dL (2.5-4.9)
[2020-06-01 18:19] VITALS: BP 112/46; PULSE 71; TEMP 71
== END 2020-06-01 17:40 | disposition home or self-care (01) ==
LOC: JONCCHEMO 07:00
PROVIDERS: ATTEND Internal Medicine Hematology & Oncology
DX: Z51.11 Encounter for antineoplastic chemotherapy (principal); C91.90 Lymphoid leukemia, unspecified not having achieved remission; D80.1 Nonfamilial hypogammaglobulinemia
CPT/HCPCS: 36415; 80048; 83615; 84100; 84550; 96361; 96413

== ENCOUNTER 2020-06-07 07:24 | Day surgery (SDC) | payer BC ==
[2020-06-07] MEDS ORDERED: ACETAMINOPHEN 325 MG TABLET (FP) PO ONE (09:30)
[2020-06-07] MEDS ORDERED: DIPHENHYDRAMINE 25 MG in SODIUM CHLORIDE 50 ML IVPB ONE (09:30)
[2020-06-07] MEDS ORDERED: RITUXIMAB-ABBS 500 MG, RITUXIMAB-ABBS 261 MG in SODIUM CHLORIDE 684.9 ML IVPB ONE (10:00)
[2020-06-07 12:41] LABS: BASO % 0.2 % (0-2.0); EOS % 0.2 % (0-4.5); HEMATOCRIT 26.4 % (35.4-49); LYMPH % 85.2 % (8-40); MCH 33.6 pg (25.7-33.7); MCHC 30.5 g/dl (32.0-35.9); MEAN CELL VOLUME 110.3 fl (80-96); MEAN PLT VOLUME 9.1 fl (7.5-11.1); MONO % 2.8 % (3.8-10.2); NEUT % 11.6 % (42.8-82.8); PLATELET COUNT 201 K/MM3 (134-434); RBC 2.39 M/mm3 (4.00-5.60); RDW 20.3 % (11.9-15.9)
[2020-06-07 12:48] LABS: WHITE BLOOD COUNT 87.5 K/mm3 (4.0-10.0)
[2020-06-07 13:59] LABS: ALBUMIN 2.5 g/dl (3.4-5.0); BLOOD UREA NITROGEN 48.5 mg/dL (7-18); CALCIUM 8.1 mg/dL (8.5-10.1)
[2020-06-07 14:02] LABS: BILIRUBIN,DIRECT 0.1 mg/dL (0.0-0.2); CREATININE 1.7 mg/dL (0.55-1.3); PHOSPHOROUS 3.4 mg/dL (2.5-4.9); URIC ACID 4.6 mg/dL (2.6-7.2)
[2020-06-07 14:04] LABS: TOT PROT 4.9 g/dl (6.4-8.2)
[2020-06-07 14:13] LABS: BILIRUBIN,TOTAL 0.3 mg/dL (0.2-1)
[2020-06-07] MEDS ORDERED: INSULIN (NOVOLOG) ASPART 100 UNITS/ML 10ML VIAL SQ ONE (14:18)
[2020-06-07 15:19] LABS: ANISOCYTOSIS 1+; MACROCYTOSIS 1+; PLATELET ESTIMATE NORMAL
[2020-06-07 16:21] VITALS: TEMP 98.1
[2020-06-07 17:26] VITALS: BP 97/42; PULSE 78
== END 2020-06-07 17:28 | disposition home or self-care (01) ==
LOC: JONCCHEMO 07:24
PROVIDERS: ATTEND Internal Medicine Hematology & Oncology
DX: Z51.11 Encounter for antineoplastic chemotherapy (principal); C91.90 Lymphoid leukemia, unspecified not having achieved remission; D80.1 Nonfamilial hypogammaglobulinemia
CPT/HCPCS: 36415; 80048; 80076; 83615; 84100; 84550; 85025; 96375; 96413; 96415; Q5115

== ENCOUNTER 2020-06-08 07:41 | Day surgery (SDC) | payer BC ==
[2020-06-08] MEDS ORDERED: RASBURICASE 6 MG in SODIUM CHLORIDE 50 ML IVPB ONE (10:00)
[2020-06-08] MEDS ORDERED: SODIUM CHLORIDE 0.45% 500 ML IV ONE (10:00)
[2020-06-08 15:40] VITALS: TEMP 97.7
[2020-06-08] MEDS ORDERED: INSULIN (NOVOLOG) ASPART 100 UNITS/ML 10ML VIAL SQ ONE (16:17)
[2020-06-08 16:39] VITALS: BP 109/46; PULSE 69
== END 2020-06-08 16:45 | disposition home or self-care (01) ==
LOC: JONCCHEMO 07:41
PROVIDERS: ATTEND Internal Medicine Hematology & Oncology
PROC: 3E033GC Introduction of Other Therapeutic Substance into Peripheral Vein, Percutaneous Approach (ICD-10-PCS; principal; 2020-06-08)
DX: C91.90 Lymphoid leukemia, unspecified not having achieved remission (principal); D80.1 Nonfamilial hypogammaglobulinemia
CPT/HCPCS: 82962; 96365

== ENCOUNTER 2020-06-14 06:53 | Day surgery (SDC) | payer BC ==
[2020-06-14] MEDS ORDERED: ACETAMINOPHEN 325 MG TABLET (FP) PO ONE (09:30)
[2020-06-14] MEDS ORDERED: DIPHENHYDRAMINE 25 MG in SODIUM CHLORIDE 50 ML IVPB ONE (09:30)
[2020-06-14] MEDS ORDERED: RITUXIMAB ABBS IVPB ONE (10:00)
[2020-06-14] MEDS ORDERED: SODIUM CHLORIDE IVPB ONE (10:00)
[2020-06-14] MEDS ORDERED: CALCIUM CHLORIDE 1 GM/10 ML *DISP.SYRIN IVPB ONE (11:27)
[2020-06-14] MEDS ORDERED: CALCIUM GLUCONATE IN NACL 1 GM/50 ML BAG IVPB ONE (15:56)
[2020-06-14 18:25] VITALS: BP 119/41; PULSE 78; TEMP 97.9
== END 2020-06-14 16:59 | disposition home or self-care (01) ==
LOC: JONCCHEMO 06:53
PROVIDERS: ATTEND Internal Medicine Hematology & Oncology
DX: Z51.11 Encounter for antineoplastic chemotherapy (principal); C91.90 Lymphoid leukemia, unspecified not having achieved remission; D80.1 Nonfamilial hypogammaglobulinemia
CPT/HCPCS: 96367; 96375; 96413; 96415; Q5115

== ENCOUNTER 2020-06-15 07:33 | Day surgery (SDC) | payer BC ==
[2020-06-15] MEDS ORDERED: SODIUM CHLORIDE 0.45% 500 ML IV ONE (09:00)
[2020-06-15] MEDS ORDERED: RASBURICASE 6 MG in SODIUM CHLORIDE 50 ML IVPB ONE (10:00)
[2020-06-15 16:09] VITALS: TEMP 97.6
[2020-06-15 16:48] VITALS: BP 131/50; PULSE 76
== END 2020-06-15 16:49 | disposition home or self-care (01) ==
LOC: JONCCHEMO 07:33
PROVIDERS: ATTEND Internal Medicine Hematology & Oncology
DX: Z51.11 Encounter for antineoplastic chemotherapy (principal); C91.90 Lymphoid leukemia, unspecified not having achieved remission; D80.1 Nonfamilial hypogammaglobulinemia
CPT/HCPCS: 96361; 96413

== ENCOUNTER → 2020-06-21 | Day surgery (SDC) | payer BC ==
[~2020-06-21] MED LIST changes: +DIPHENHYDRAMINE 25 MG in SODIUM CHLORIDE 50 ML IVPB ONE; -IGA IVPB ONE; -IMMUN GLOB IVPB ONE; -PRO IMMUN GLOB IVPB ONE; -PRO IVPB ONE; +RITUXIMAB PVVR IVPB ONE; +SODIUM CHLORIDE IVPB ONE
[2020-06-21 11:15] LABS: BASO % 0.3 % (0-2.0); EOS % 0.2 % (0-4.5); HEMATOCRIT 26.2 % (35.4-49); HEMOGLOBIN 8.1 GM/dL (11.7-16.9); MCH 33.9 pg (25.7-33.7); MEAN CELL VOLUME 109.3 fl (80-96); MEAN PLT VOLUME 8.5 fl (7.5-11.1); MONO % 1.4 % (3.8-10.2); NEUT % 17.1 % (42.8-82.8); PLATELET COUNT 224 K/MM3 (134-434); RBC 2.39 M/mm3 (4.00-5.60); RDW 19.5 % (11.9-15.9)
[2020-06-21 11:21] LABS: WHITE BLOOD COUNT 86.2 K/mm3 (4.0-10.0)
[2020-06-21 11:35] LABS: MAGNESIUM 2.2 mg/dL (1.8-2.4)
[2020-06-21 11:36] LABS: BLOOD UREA NITROGEN 40.2 mg/dL (7-18)
[2020-06-21 11:37] LABS: ALBUMIN 2.7 g/dl (3.4-5.0); CALCIUM 7.3 mg/dL (8.5-10.1)
[2020-06-21 11:39] LABS: BILIRUBIN,DIRECT 0.1 mg/dL (0.0-0.2); CREATININE 1.7 mg/dL (0.55-1.3)
[2020-06-21 11:40] LABS: TOT PROT 5.1 g/dl (6.4-8.2); URIC ACID 3.9 mg/dL (2.6-7.2)
[2020-06-21 11:42] LABS: BILIRUBIN,TOTAL 0.3 mg/dL (0.2-1)
[2020-06-21 13:01] LABS: ANISOCYTOSIS 1+; MACROCYTOSIS 2+; PLATELET ESTIMATE NORMAL
[2020-06-22 13:08] LABS: IGA IMMUNOGLOBULIN 23 mg/dL (61-437); IGG QN IMMUNOGLOBULIN 307 mg/dL (603-1613); IGM QN SERUM <5 mg/dL (15-143)
[2020-06-23 15:07] LABS: BETA-2-MICROGLOBULIN 8.5 mg/L (0.6-2.4)
== END | disposition home or self-care (01) ==
LOC: JONCCHEMO 07:06
PROVIDERS: ATTEND Internal Medicine Hematology & Oncology
DX: Z53.8 Procedure and treatment not carried out for other reasons (principal)
CPT/HCPCS: 36415; 80048; 80076; 82232; 82784; 83615; 83735; 84550; 85025